=== PATIENT | female | born 1985 | race Caucasian/White ===

== ENCOUNTER 2018-09-18 09:27 | Outpatient (CLI) | payer OTHER, SELFPAY ==
--- NOTE | 2018-09-18 09:25 | DI.RAD_ITS ---
SYMPTOMS/DIAGNOSIS: KNEE PAIN MERCHANT VIEWS OF BOTH KNEES: The patellae appear normally positioned bilaterally. There is minimal spurring at the articular aspect of the patella on the right. IMPRESSION: Minimal patellofemoral degenerative changes.
== END 2018-09-18 09:47 ==
PROVIDERS: Visit Provider Orthopaedic Surgery
DX: M25.561 Pain in right knee (principal); M25.562 Pain in left knee; M22.2X1 Patellofemoral disorders, right knee
CPT/HCPCS: 73562

== ENCOUNTER 2018-09-18 15:42 | Outpatient (CLI) | payer OTHER, SELFPAY ==
--- NOTE | 2018-09-18 09:37 | DI.RAD_ITS ---
SYMPTOM/DIAGNOSIS: PAIN RIGHT KNEE: The joint spaces are well maintained. There is minimal spurring at the articular aspect of the patella. No joint effusion is seen. The bones are normally mineralized. IMPRESSION: Minimal patellofemoral degenerative changes.
== END 2018-09-18 16:02 ==
PROVIDERS: Visit Provider Physician Assistant Surgical
DX: M25.561 Pain in right knee (principal); M22.2X1 Patellofemoral disorders, right knee
CPT/HCPCS: 73565

== ENCOUNTER 2019-03-02 09:17 | Outpatient (REF) | payer OTHER, SELFPAY ==
--- NOTE | 2019-03-02 08:40 | PAPFT_PTH ---
PATIENT: Kaden Carcamo LOC: [facility] U#:[id number] AGE/SX: 34/F ROOM: RE03/02/[address]: Claudette Garcia MD : 1985 BED: DIS: 03/02/2019 SPEC #: [id number] RECD: 03/02/19 12:30 STATUS: LEXIE RECachorro #: [id number] SCOTT: 03/02/19 08:[address]: Claudette Garcia DEPT: [facility] Cytology RECD BY: Ani Crespo ENTERED: 03/02/19 12:30 SP TYPE: PAPFT OTHR DR: Arcelia Roa APRN Tissues: 1 - CX/ENDOCX FOR PAP SMEARS Procedures: PAP THIN PREP/UVM Screening HPV DNA PROBE Comments: [id number]
== END 2019-03-02 09:37 ==
LOC: LBN 09:17
PROVIDERS: Visit Provider Obstetrics & Gynecology
DX: Z12.4 Encounter for screening for malignant neoplasm of cervix (principal); Z11.51 Encounter for screening for human papillomavirus (HPV)
CPT/HCPCS: 88142; 87624

== ENCOUNTER 2019-04-04 19:48 | Emergency (ER) | payer OTHER, SELFPAY ==
[2019-04-04 19:52] VITALS: BP 124/78; PULSE 99; RESP 16; TEMP 36.7; O2SAT 98
--- NOTE | 2019-04-04 19:59 | ED.GENADUL_ITS ---
Discharge Plan Disposition Patient Disposition: HOME Condition: Good Discharge Details Chief Complaint: Orthopedic Clinical Impression: Injury of left thumb Primary Care Provider: Arcelia Roa ED Provider: Noam Chong Home Meds and New Rx's Prescriptions: Continued cholecalciferol (vitamin D3) 4,000 unit capsule 4,000 unit PO DAILY RF: 0 multivitamin [Daily Value] 1 EACH tablet 1 ea PO DAILY RF: 0 Tri-Legest Fe 1 EACH tablet 1 tab-cap PO DAILY Qty: 2 RF: 6 Discharge Instructions Additional Instructions: X-rays are negative but due to the amount of pain you are having difficult to evaluate ligamentous injury. Please wear the splint for now we will have you follow-up with orthopedics. May use Motrin or Tylenol for pain. Continue to ice. Return to ED for problems. Referrals: Yared Marques MD [ [facility] STAFF PHYSICIAN] - Medical Decision Making Patient with pain and decreased range of motion of the left thumb after fall and injury. Tenderness at the base of the thumb into the metacarpal region. IP joint appears to be fine. Unable to passively or actively bend or manipulate the thumb MCP or MCP joint. No tenderness in the snuffbox. Normal range of motion of the wrist. Neurovascularly intact. Will give Motrin and obtain x- ray. X-rays per my review and radiology read are negative. Cannot evaluate for ligamentous injury due to the amount of pain. Will place in thumb spica and referred to orthopedics for follow-up. Return to ED for problems. HPI General Mode of arrival: ambulatory . Date/Time Provider Initiated Documentation: 04/04/19 19:58 . Limitations to Documentation: no limitations . Information obtained by: patient . HPI Narrative: Patient presents to ED with complaint of left thumb pain. She had a fall last night initially injuring her thumb. Today when she was on the floor trying to push herself up she reinjured it and actually made it much worse. She has pain at the base of the thumb. She denies wrist pain. She denies hand pain otherwise. She denies any other injury or complaints. She is right-hand dominant. Related Data Home Medications Medication Instructions Recorded Confirmed multivitamin [Daily Value] 1 ea PO DAILY tab 02/17/16 04/04/19 Tri-Legest Fe 1 tab-cap PO DAILY #2 pack 02/27/18 04/04/19 cholecalciferol (vitamin D3) 4,000 4,000 unit PO DAILY 03/02/19 04/04/19 unit capsule Previous Rx's Medication Instructions Recorded Tri-Legest Fe 1 tab-cap PO DAILY #2 pack 02/27/18 Allergies Allergy/AdvReac Type Severity Reaction Status Date / Time lactose AdvReac Verified 04/04/19 19:56 ENVIRONMENTAL Allergy Mild Uncoded 04/04/19 19:56 General Stated Complaint: Orthopedic ROME: 4 Review of Systems Constitutional Denies weakness Musculoskeletal Reports limited range of motion, Denies numbness and Denies tingling Integumentary/Breasts Denies wounds Neurologic Denies numbness, Denies tingling, Denies paresthesias and Denies weakness [facility] Medical History Contraception management Surgical History section Hysteroscopy (11/07/17) lymph node removal (10/14/07) Social History Smoking/Tobacco Use Status: Never Drug use: Never Do you feel safe at home: Yes Do you feel safe in your relationship?: Yes History History Para Hx # Term Pregnancies 2 Multiple births Hx # Pregnancies Ectopic pregnancies AB induced Hx Number of Living Children AB spontaneous Exam Const General: cooperative and no acute distress Orientation: alert and oriented x3 Skin Trauma: no lacerations or abrasions Neuro Motor: strength 5/5 throughout Sensory Exam: no sensory deficits noted Extrem Left upper extremity: wrist Details: normal to inspection and normal ROM; no tenderness and no swelling and hand Details: normal capillary refill, neuromotor exam normal, neurosensory exam normal, tenderness Location: of the thumb and abnormal ROM of finger Details: pain with active ROM Location: of the thumb and pain with passive ROM Location: of the thumb Course Vital Signs Temperature 98.1 F 04/04/19 19:52 Pulse 99 H 04/04/19 19:52 Respiratory Rate 16 04/04/19 19:52 Blood Pressure 124/78 04/04/19 19:52 Pulse Oximetry 98 04/04/19 19:52 Temperature 98.1 F 04/04/19 19:52 Temperature Source Skin 04/04/19 19:52 Pulse 99 H 04/04/19 19:52 Respiratory Rate 16 04/04/19 19:52 Respiratory Effort Non-Labored 04/04/19 19:55 Blood Pressure 124/78 04/04/19 19:52 Blood Pressure Position Sitting 04/04/19 19:52 Pulse Oximetry 98 04/04/19 19:52 Oxygen Delivery Method Room Air 04/04/19 19:52 Oxygen Flow Rate 0 04/04/19 19:52 Pain Level 8 04/04/19 19:52
--- NOTE | 2019-04-04 20:15 | DI.RAD_ITS ---
SYMPTOM/DIAGNOSIS: TRAUMA LEFT HAND: No fracture or dislocation is seen. The joint spaces are well maintained. IMPRESSION: Negative left hand.
--- NOTE | 2019-04-04 21:02 | DI.VRAD_ITS ---
EXAM: XR Left Hand EXAM DATE/TIME: 04/04/2019 8:05 PM CLINICAL HISTORY: 34 years old, female; Pain; Left; Patient HX: Trauma, fell and landed on hand. HX: Previous trauma to same hand TECHNIQUE: Imaging protocol: XR Left hand. Views: 3 or more views. COMPARISON: CR LEFT HAND COMPLETE 06/22/2017 6:53 PM FINDINGS: Bones/joints: Normal. Soft tissues: Normal. IMPRESSION: No acute findings. Dictated and Authenticated by: Josie Veliz MD. Ordering:JEANNINE Santacruz MD
== END 2019-04-04 21:17 | disposition home or self-care (01) ==
PROVIDERS: Emergency Provider Emergency Medicine
DX: M79.642 Pain in left hand (principal)
CPT/HCPCS: 99283; 73130; 99282; L3807

== ENCOUNTER 2019-05-13 09:00 | Outpatient (CLI) | payer OTHER, SELFPAY ==
[2019-05-13 10:52] LABS: ALT 34 U/L (12-78); AST 13 U/L (15-37); Alkaline Phosphatase 39 U/L (46-116); Anion Gap 8.8 mmol/L (3-11); BUN 15 mg/dL (7-18); Bilirubin, Total 0.4 mg/dL (0.2-1.0); CO2 24.2 mmol/L (21.0-32.0); CREATININE 0.75 mg/dL (0.55-1.02); Calcium 9.2 mg/dL (8.5-10.1); Chloride 105 mmol/L (98-107); Glucose 93 mg/dL (70-100); Potassium 4.1 mmol/L (3.5-5.1); Sodium 138 mmol/L (136-145); Total Protein 7.4 g/dL (6.4-8.2)
== END 2019-05-13 09:20 ==
DX: R63.8 Other symptoms and signs concerning food and fluid intake (principal); F41.9 Anxiety disorder, unspecified; F32.9 Major depressive disorder, single episode, unspecified
CPT/HCPCS: 36415; 80053

== ENCOUNTER 2019-07-14 18:33 | Outpatient (REF) | payer OTHER, SELFPAY | END 2019-07-14 18:53 | LOC: LBN 18:33 | PROVIDERS: Visit Provider Nurse Practitioner Family | DX: R30.0 Dysuria (principal) | CPT/HCPCS: 87077; 87086; 87186 ==

== ENCOUNTER 2019-08-12 12:17 | Emergency (ER) | payer OTHER, SELFPAY ==
[2019-08-12 12:24] VITALS: BP 142/75; PULSE 103; RESP 18; O2SAT 97
--- NOTE | 2019-08-12 12:55 | W.ED.GENAD ---
Discharge Plan Disposition Patient Disposition: HOME Condition: Fair Discharge Details Chief Complaint: Orthopedic Clinical Impression: Acute knee pain Primary Care Provider: Arcelia Roa ED Provider: Marguerite Bowman Home Meds and New Rx's Prescriptions: No Action No Known Home Meds RF: 0 Discharge Instructions Instructions: Knee Pain (ED) Additional Instructions: Rest. Activities as tolerated. Elevate injury to prevent swelling. Ice to the area of discomfort for 15 min. 3-5 times daily. Motrin every 8 hours with food or Tylenol every 6 hours for soreness if needed over the counter for comfort. Followup with orthopedic doctor as discussed if not improving in one week. Return for any worsening or concerns sooner if needed. 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 Patient forced extension of her knee which cause significant pain. Patient does report her knee has locked in the past historically. Patient does report some chronic knee pain with any attempting exercise. Patient reports she is able to range her knee at this time. Patient has seen orthopedics for knee pain in the past and has had x-rays which are unremarkable for acute changes or fractures. Patient was offered physical therapy by orthopedics in the past which she declined due to her schedule. Patient denies any ill feeling. Patient declines x-ray today. Would prefer outpatient follow-up and [facility]. Offered knee bracing and crutches which I encouraged her to use for the next 3 to 5 days. Referral provided for orthopedics for reevaluation which I think is warranted given her complaints and concern for possible meniscus injury or loose bodies. Patient reports her understanding. The patient was stable and requested discharge. Prior to discharge, my usual and customary return precautions were reviewed with the patient - this included follow-up instructions and reasons to return to the Emergency Department if conditions worsens, does not improve as expected, or other new concerns arise. HPI General Date/Time Provider Initiated Documentation: 08/12/19 12:18. HPI Narrative: 34-year-old patient presents for complaints of right knee pain. 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 Knowing the feeling of her knee about to lock she forced extension of her knee which was quite painful. Patient is able to flex and extend at this time with pain. Patient denies significant radiating pain into the leg at this time. She did reported a single episode of radiating pain into the leg when extending her knee. Patient denies numbness, tingling or weakness distally. Patient reports she has had her knee fully lock in the past. Patient has followed with orthopedics and has had an x-ray of her knee in the past with no significant abnormality. Patient denies any other concerns or complaints at this time. Patient does report some difficulty with knee pain when attempting to work out at the gym which she is noted repetitively. Related Data Home Medications Medication Instructions Recorded Confirmed Unknown [No Known Home Meds] 08/12/19 08/12/19 Allergies Allergy/AdvReac Type Severity Reaction Status Date / Time lactose AdvReac Verified 08/12/19 12:27 ENVIRONMENTAL Allergy Mild Uncoded 08/12/19 12:27 General Stated Complaint: Orthopedic ROME: 4 Review of Systems All systems reviewed & are unremarkable except as noted in HPI and below Constitutional Constitutional: Denies chills and Denies fever(s) Musculoskeletal Musculoskeletal: Denies joint swelling, Reports limited range of motion, Reports stiffness and Denies tingling Neurologic Neurologic: Denies tingling [facility] Medical History Contraception management Mirena IUD after of her children. 2017 Mirena IUD removed after 3yrs - needed hysteroscopy in OR to retrieve device. 02/2018 OCPs. Dermatitis (Acute) Surgical History section X 2 Hysteroscopy (11/07/17) retrieval of Mirena IUD. lymph node removal (10/14/07) from neck Family History Mother Lupus Rheumatoid arthritis Diabetes Essential hypertension Depression Heart disease Hyperlipidemia Father Essential hypertension Heart disease Hyperlipidemia Sister No problems noted. Maternal Grandfather No problems noted. Paternal Grandfather Alzheimer disease Smoker Maternal Grandmother Stroke Paternal Grandmother Essential hypertension Heart disease Hyperlipidemia Daughter No problems noted. Daughter No problems noted. Social History Smoking/Tobacco Use Status: Never Alcohol Intake: current Alcohol Intake frequency: 0-2 drinks per day Alcohol type: beer, wine and hard liquor Drug use: Never Substance use type: does not use Caregiver/Support person: No Household members: children Housing: apartment Communication Needs: None Do you need help understanding health information?: Rarely Pets and animals: No Sexually active: Yes Do you think of yourself as: straight/heterosexual Current gender identity: female What is your relationship status?: How often do you talk on the phone with friends or family?: decline to answer How often do you get together with friends or relatives?: decline to answer How often do you attend sikhism or latter-day services?: decline to answer Do you belong to any clubs or organized social groups?: decline to answer Panel score (0-1 are the most socially isolated patients): 0 What type of physical activity do you participate in: decline to answer Duration: decline to answer Frequency: decline to answer Lesley/Scientology: None Special lesley needs: No Seatbelt use: always Do you feel safe at home: Yes Do you feel safe in your relationship?: Yes History History Para Hx # Term Pregnancies 2 Multiple births Hx # Pregnancies Ectopic pregnancies AB induced Hx Number of Living Children AB spontaneous Exam Narrative Exam Narrative: CONST: Healthy appearing patient, in no acute distress. Well hydrated. Alert and alert. MUSCULOSKELETAL: Normal Gait. Right knee pain with flexion extension. Patient is able to flex and extend right knee. Significant pain with full extension. Straight leg raise intact. No obvious joint effusion. Patella is midline. No obvious prepatellar effusion or bursitis. Early crepitus noted with range of motion of the patella consistent with possible osteophytes. Mild lateral meniscus pain with varus stress. No obvious laxity. No erythema or overlying skin changes. No lower leg swelling noted. No ankle pain or foot pain with palpation. Pulses intact and sensation intact distally SKIN: Normal. Dry. No rashes. NEURO: Alert and awake. Speech clear. PSYCH: Normal affect. Cooperative. Course Vital Signs Vital signs: Vital Signs Pulse 103 H 08/12/19 12:24 Respiratory Rate 18 08/12/19 12:24 Blood Pressure 142/75 H 08/12/19 12:24 Pulse Oximetry 97 08/12/19 12:24 Pulse 103 H 08/12/19 12:24 Respiratory Rate 18 08/12/19 12:24 Respiratory Effort 08/12/19 12:28 Blood Pressure 142/75 H 08/12/19 12:24 Blood Pressure Position Standing 08/12/19 12:24 Pulse Oximetry 97 08/12/19 12:24 Oxygen Delivery Method Room Air 08/12/19 12:24 Oxygen Flow Rate 0 08/12/19 12:24 Pain Level 4 08/12/19 12:30
== END 2019-08-12 13:11 | disposition home or self-care (01) ==
LOC: ER 13:36
PROVIDERS: Emergency Provider Physician Assistant
DX: M25.561 Pain in right knee (principal); X50.1XXA Overexertion from prolonged static or awkward postures, initial encounter
CPT/HCPCS: 99282; E0114; L1810

== ENCOUNTER 2019-08-12 14:27 | Outpatient (CLI) | payer OTHER, SELFPAY ==
--- NOTE | 2019-08-12 14:08 | DI.RAD_ITS ---
EXAM: XR KNEE RT 1V INDICATION: knee pain. COMPARISON: XR KNEES MERCHANT ONLY from 09/18/2018 TECHNIQUE: 2D digital imaging was performed. FINDINGS: A single Merchant view of the right knee was obtained. There does appear to be normal alignment of t he patellofemoral joint. No displaced fracture is identified on this limited examination.
== END 2019-08-12 14:47 ==
PROVIDERS: Visit Provider Physician Assistant
DX: M25.561 Pain in right knee (principal)
CPT/HCPCS: 73560

== ENCOUNTER 2019-08-12 15:05 | Outpatient (CLI) | payer OTHER, SELFPAY ==
--- NOTE | 2019-08-12 16:50 | DI.MRI_ITS ---
EXAM: MR LOWER JOINT RT WO CLINICAL HISTORY: RT KNEE PAIN, INJURY, ANTERIOR AND LATERAL PAIN, SWELLING. TECHNIQUE: Multiplanar multisequence MRI was performed. COMPARISON: XR KNEES MERCHANT ONLY from 09/18/2018 XR knee RT 3V AP,lat,alex from 09/18/2018 XR KNEE RT 1V from 08/12/2019 FINDINGS: There is a small joint effusion. The cruciate and collateral ligaments and extensor mechanism appear intact. No cartilage defects are visible. No meniscal tears are seen. IMPRESSION: A small joint effusion. No ligament or meniscal tear is identified.
== END 2019-08-12 15:25 ==
PROVIDERS: Visit Provider Student in an Organized Health Care Education/Training Program
DX: M25.561 Pain in right knee (principal); M25.461 Effusion, right knee
CPT/HCPCS: 73721

== ENCOUNTER 2020-06-06 02:37 | Outpatient (CLI) | payer OTHER, SELFPAY ==
[2020-06-06 15:17] LABS: Abs Immature Grans 0.02 10^3/uL (0.0-0.06); Absolute Basophil Count 0.03 10^3/uL (0.0-0.2); Absolute Eosinophil Count 0.16 10^3/uL (0.0-0.7); Absolute Lymphocyte Count 2.33 10^3/uL (1.2-3.4); Absolute Monocyte Count 0.69 10^3/uL (0.1-0.8); Absolute Neutrophil Count 4.39 10^3/uL (1.2-6.7); Basophils % 0.4; Eosinophils % 2.1; HCT 40.5 % (36.0-46.0); HGB 13.3 g/dL (11.2-15.7); Immature Grans % 0.3; Lymphocytes % 30.6; MCH 28.5 pg (27.0-33.0); MCHC 32.8 % (32.0-36.0); MCV 86.7 fL (80-95); MPV 9.7 fL (8.0-11.0); Monocytes % 9.1; Neutrophils % 57.5; Nucleated RBC 0 %; Platelet Count 288 10^3/uL (130-400); RBC 4.67 10^6/uL (3.93-5.22); WBC 7.62 10^3/uL (4.4-10.8)
[2020-06-06 16:14] LABS: ALT 24 U/L (14-59); AST 14 U/L (15-37); Alkaline Phosphatase 40 U/L (46-116); Anion Gap 8.3 mmol/L (3-11); BUN 12 mg/dL (7-18); Bilirubin, Total 0.4 mg/dL (0.2-1.0); CO2 26.7 mmol/L (21.0-32.0); CREATININE 0.93 mg/dL (0.55-1.02); Calcium 8.8 mg/dL (8.5-10.1); Chloride 104 mmol/L (98-107); Glucose 83 mg/dL (74-106); Potassium 3.7 mmol/L (3.5-5.1); Sodium 139 mmol/L (136-145); TSH 1.06 uIU/mL (0.36-3.74); Total Protein 7.2 g/dL (6.4-8.2)
[2020-06-07 09:28] LABS: IgA 158 mg/dL (85-499)
[2020-06-08 16:28] LABS: Tissue Transglutaminase Ab IgA <1.2 U/mL
== END 2020-06-06 02:57 ==
PROVIDERS: Visit Provider Internal Medicine Gastroenterology
DX: K59.09 Other constipation (principal)
CPT/HCPCS: 36415; 80053; 82784; 83516; 84443; 85025

== ENCOUNTER 2020-07-01 13:01 | Outpatient (REF) | payer OTHER, SELFPAY ==
--- NOTE | 2020-07-01 12:10 | PAPFT_PTH ---
PATIENT: Kaden Carcamo LOC: [facility] U#:[id number] AGE/SX: 35/F ROOM: RE07/01/[address]: Pedro Huerta RN : 1985 BED: DIS: 07/01/2020 SPEC #: [id number] RECD: 07/01/20 17:48 STATUS: LEXIE RECachorro #: [id number] SCOTT: 07/01/20 12:[address]: Pedro Huerta [facility] Cytology RECD BY: Ariane Santo ENTERED: 07/01/20 17:49 SP TYPE: PAPFT OTHR DR: Arcelia Roa APRN Tissues: 1 - CX/ENDOCX FOR PAP SMEARS Procedures: PAP THIN PREP/UVM Screening HPV DNA PROBE Comments: [id number]
[2020-07-04 15:12] LABS: Chlamydia Result Negative (Negative); GC Result Negative (Negative)
== END 2020-07-01 13:21 ==
LOC: LBN 13:01
PROVIDERS: Visit Provider Advanced Practice Midwife
DX: Z12.4 Encounter for screening for malignant neoplasm of cervix (principal); Z11.51 Encounter for screening for human papillomavirus (HPV); Z87.42 Personal history of other diseases of the female genital tract
CPT/HCPCS: 87491; 87591; 88142; 87624

== ENCOUNTER 2020-08-03 22:40 | Outpatient (REF) | payer OTHER, SELFPAY | END 2020-08-03 23:00 | LOC: LBN 22:40 | PROVIDERS: Visit Provider Nurse Practitioner Family | DX: J02.9 Acute pharyngitis, unspecified (principal) | CPT/HCPCS: 87070 ==

== ENCOUNTER 2020-11-14 13:14 | Outpatient (REF) | payer OTHER, SELFPAY ==
[2020-11-15 01:14] LABS: COVID-19 RT-PCR UVMMC Result Negative (Negative)
== END 2020-11-14 13:34 ==
LOC: LBO 13:14
PROVIDERS: Visit Provider Nurse Practitioner Family
DX: Z11.52 Encounter for screening for COVID-19 (principal)
CPT/HCPCS: U0003

== ENCOUNTER 2021-06-30 11:16 | Outpatient (REF) | payer OTHER, SELFPAY ==
[2021-07-01 01:12] LABS: COVID-19 RT-PCR UVMMC Result Negative (Negative)
== END 2021-06-30 11:17 | disposition home or self-care (01) ==
LOC: LBO 11:16
PROVIDERS: Visit Provider Nurse Practitioner Family
DX: Z20.822 Contact with and (suspected) exposure to COVID-19 (principal)
CPT/HCPCS: U0003

== ENCOUNTER 2021-07-07 09:36 | Emergency (ER) | payer OTHER, SELFPAY ==
--- NOTE | 2021-07-07 09:45 | DI.US_ITS ---
Exam(s) US LOWER EXTREMITY VENOUS LT EXAM: US LOWER EXTREMITY VENOUS LT CLINICAL HISTORY: swelling, pain TECHNIQUE: Left lower extremity venous ultrasound performed using grayscale, color-flow, and spectra l Doppler analysis. COMPARISON: No exams were available for comparison FINDINGS: The left common femoral, femoral and popliteal veins demonstrate normal compressibility, augmentation , and color Doppler. The posterior tibial veins are patent. The saphenofemoral junction is unremarka ble. There is no evidence of a Posada cyst. The soft tissues are unremarkable. IMPRESSION: No DVT. DATA REPOSITORY:
[2021-07-07 09:50] VITALS: BP 136/93; PULSE 117; RESP 22; TEMP 36.8; O2SAT 99
--- NOTE | 2021-07-07 10:00 | RT.EKG_ITS ---
APPROVED REPORT Exam: Resting ECG Reason for Exam: sob Patient Location: E HR:111 bpm ECG Measurements Heart Rate 111 AXIS TN 178 P 52 QRSd 96 QRS 8 QT 329 T 40 QTc 448 Conclusion Sinus tachycardia...rate> 99
--- NOTE | 2021-07-07 10:22 | W.ED.GENAD ---
Discharge Plan Disposition Patient Disposition: HOME Condition: Stable Discharge Details Clinical Impression: Leg pain, left Primary Care Provider: Arcelia Roa ED Provider: Petey Leong Home Meds and New Rx's Prescriptions: Continued multivitamin Tablet 1 tab PO DAILY RF: 0 Discharge Instructions Instructions: Leg Pain (ED) Additional Instructions: Please take ibuprofen over the counter. Take 600mg by mouth every 6 hours as needed for pain. Please take acetaminophen (tylenol) - 650mg every 6 hours by mouth as needed for pain. Please contact your primary care physician to arrange follow-up. Return to the ER for any worsening or new concerning symptoms. Referrals: Arcelia Roa, LILIAN [Primary Care Provider] - Discharge Data Discharge Date/Time-TO BE ENTERED AT DEPARTURE: 07/07/21 13:25 Medical Decision Making 11:00 test?36-year-old female has had respiratory symptoms for the past 1 week, Covid positive on Saturday, here with left lower extremity pain and swelling. Calf tender to palpation. Consider DVT. Plan to obtain ultrasound. Patient is tachycardic. She notes her heart rate is always elevated and she does feel little anxious. She is saturating well in no respiratory distress. 13:07 --ultrasound interpreted by radiology as negative for DVT. Results were discussed with the patient. She was advised to follow-up with primary care physician. She was encouraged to return immediately for any worsening or new concerning symptoms. HPI General Mode of arrival: ambulatory. Date/Time Provider Initiated Documentation: 07/07/21 09:57. Limitations to Documentation: no limitations. Information obtained by: patient. HPI Narrative: 36-year-old female tested positive for Covid 6 days ago, has had symptoms for the past 7 days, now with left lower extremity pain that is moderate, localized to calf and mid medial thigh, started yesterday and has persisted, noticed associated swelling of the lower leg today. No history of DVT. She has no chest pain. Related Data Home Medications Medication Instructions Recorded Confirmed multivitamin 1 tab PO DAILY 07/01/20 07/11/20 Allergies Allergy/AdvReac Type Severity Reaction Status Date / Time lactose AdvReac Verified 07/07/21 09:53 ENVIRONMENTAL Allergy Mild Uncoded 07/07/21 09:53 General Stated Complaint: Vascular ROME: 3 Review of Systems All systems reviewed & are unremarkable except as noted in HPI and below Constitutional Constitutional: Reports body ache(s) and Reports fever(s) Respiratory Respiratory: Reports cough [facility] Medical History Contraception management Mirena IUD after of her children. 2018 Mirena IUD removed after 3yrs - needed hysteroscopy in OR to retrieve device. 02/2018 OCPs. Dermatitis Internal derangement of right knee (08/12/19) Plantar fasciitis of right foot Rectal pain, chronic Urinary pain Surgical History section X 2 Hysteroscopy (11/07/17) retrieval of Mirena IUD. lymph node removal (10/14/07) from neck Family History Mother Lupus Rheumatoid arthritis Diabetes Essential hypertension Depression Heart disease Hyperlipidemia Father Essential hypertension Heart disease Hyperlipidemia Sister No problems noted. Maternal Grandfather No problems noted. Paternal Grandfather Alzheimer disease Smoker Maternal Grandmother Stroke Paternal Grandmother Essential hypertension Heart disease Hyperlipidemia Daughter No problems noted. Daughter No problems noted. Social History Smoking/Tobacco Use Status: Never Smoking risk assessment performed?: Yes Alcohol Intake: current Alcohol Intake frequency: 0-2 drinks per day Alcohol type: beer, wine and hard liquor Drug use: Never Substance use type: does not use Caregiver/Support person: No Household members: children Housing: apartment Communication Needs: None Do you need help understanding health information?: Rarely Pets and animals: No Sexually active: Yes Do you think of yourself as: straight/heterosexual Current gender identity: female What is your relationship status?: How often do you talk on the phone with friends or family?: decline to answer How often do you get together with friends or relatives?: decline to answer How often do you attend sikhism or caodaism services?: decline to answer Do you belong to any clubs or organized social groups?: decline to answer Panel score (0-1 are the most socially isolated patients): 0 What type of physical activity do you participate in: decline to answer Duration: decline to answer Frequency: decline to answer Lesley/Religious: None Special lesley needs: No Seatbelt use: always Do you feel safe at home: Yes Do you feel safe in your relationship?: Yes History History Para Hx # Term Pregnancies 2 Multiple births Hx # Pregnancies Ectopic pregnancies AB induced Hx Number of Living Children AB spontaneous Exam Const General: cooperative and no acute distress HENMT Mouth: moist mucous membranes Eyes Conjunctivae: normal conjunctivae Sclera: normal sclerae Neck Neck: trachea midline and supple Resp Auscultation: clear to auscultation bilaterally, no rales, no rhonchi and no wheezes Cardio Rate: tachycardic Rhythm: regular rhythm Heart Sounds: no murmurs GI Palpation: soft, not firm, no guarding, no masses, not rigid and nontender Skin General skin exam: no rashes or lesions noted Neuro General: patient alert, patient awake, patient oriented x3 and tone normal Extrem General: edema Laterality: left Left lower extremity: hip/thigh Details: tenderness Location: of the mid upper leg; no swelling and lower leg Details: tenderness Location: of the posterior calf Psych Appearance: grossly normal Mental Status: mental status grossly normal Speech and Movement: speech and movement normal Course Vital Signs Vital signs: Vital Signs Temperature 36.8 C 07/07/21 09:50 Pulse 117 H 07/07/21 09:50 Respiratory Rate 22 07/07/21 09:50 Blood Pressure 136/93 H 07/07/21 09:50 Pulse Oximetry 99 07/07/21 09:50 Temperature 36.8 C 07/07/21 09:50 Pulse 117 H 07/07/21 09:50 Respiratory Rate 22 07/07/21 09:50 Respiratory Effort 07/07/21 10:07 Blood Pressure 136/93 H 07/07/21 09:50 Blood Pressure Position Sitting 07/07/21 09:50 Pulse Oximetry 99 07/07/21 09:50 Oxygen Delivery Method Room Air 07/07/21 09:50 Oxygen Flow Rate 0 07/07/21 09:50 Pain Level 4 07/07/21 09:50
[2021-07-07 13:04] VITALS: BP 125/76; RESP 16; TEMP 36.7; O2SAT 96
== END 2021-07-07 13:25 | disposition home or self-care (01) ==
PROVIDERS: Emergency Provider Student in an Organized Health Care Education/Training Program
DX: M79.662 Pain in left lower leg (principal); U07.1 COVID-19; M79.89 Other specified soft tissue disorders; R06.02 Shortness of breath
CPT/HCPCS: 93005; 99284; 93010; 93971; 99283

== ENCOUNTER 2021-08-10 14:21 | Emergency (ER) | payer OTHER, SELFPAY ==
[2021-08-10 14:24] VITALS: BP 147/88; PULSE 114; RESP 18; TEMP 36.8; O2SAT 98
--- NOTE | 2021-08-10 14:36 | ED.GENADUL_ITS ---
Discharge Plan Disposition Patient Disposition: HOME Condition: Stable Discharge Details Clinical Impression: Deep vein thrombosis (DVT) of right upper extremity Primary Care Provider: Arcelia Roa ED Provider: Landy Pereyra Home Meds and New Rx's Prescriptions: New Eliquis DVT-PE Treat 30D Start 5 mg (74 tabs) tablets,dose pack See Rx Instructions .ROUTE .COMPLEX 30 Days Qty: 74 RF: 0 No Action multivitamin Tablet 1 tab PO DAILY RF: 0 Discharge Instructions Instructions: Apixaban (By mouth), Deep Vein Thrombosis (ED) Additional Instructions: Take Eliquis as directed twice daily for 7 days 25 mg twice daily. Please return to the ER for any worsening shortness of breath, chest pain, swelling or redness in the leg. Follow up with primary care provider in 3-5 days. Return to ED sooner if any worsening or concerns. Increase oral fluids. Stand Alone Forms: Work Release Referrals: Arcelia Roa [facility] HELPER [Primary Care Provider] - Medical Decision Making <MARYLIN Alanis - Last Filed: 08/10/21 16:14> 36-year-old female, Covid +6 weeks ago, presents for concern of DVT in her right upper extremity. Reports chest pain or shortness of breath ongoing since her initial diagnosis 2 weeks ago. Tachycardia of 114 upon arrival. Given her presentation, will obtain ultrasound of her right upper extremity will also obtain a cardiac work-up including chest CTA given concern for potential PE as well. Patient states decreased p.o. intake over the past few days, will also give 1 L IV fluid. Medical Records Medical records reviewed: Yes I reviewed the patient's medical records. Lab Data Lab results reviewed: Yes I reviewed the patient's lab results. Labs: Laboratory Tests Range/Units 08/10/21 08/10/21 08/10/21 15:00 15:00 15:00 WBC (4.4-10.8) 10^3/uL 5.57 RBC (3.93-5.22) 10^6/uL 4.54 Hgb (11.2-15.7) g/dL 14.3 Hct (36.0-46.0) % 40.7 MCV (80-95) fL 89.6 MCH (27.0-33.0) pg 31.5 MCHC (32.0-36.0) % 35.1 RDW (11.7-14.6) % 11.7 Plt Count (130-400) 10^3/uL 279 MPV (8.0-11.0) fL 9.7 Immature Gran % 0.2 Neutrophils % 57.6 Lymphocytes % 32.7 Monocytes % 6.8 Eosinophils % 2.3 Basophils % 0.4 Nucleated RBC % % 0 Absolute Neutrophils (1.2-6.7) 10^3/uL 3.21 Absolute Lymphocytes (1.2-3.4) 10^3/uL 1.82 Absolute Monocytes (0.1-0.8) 10^3/uL 0.38 Absolute Eosinophils (0.0-0.7) 10^3/uL 0.13 Absolute Basophils (0.0-0.2) 10^3/uL 0.02 PT (9.3-11.0) sec 10.2 INR (0.9-1.1) 1.0 APTT (21.0-27.5) sec 24.7 Sodium (136-145) mmol/L 142 Potassium (3.5-5.1) mmol/L 3.7 Chloride (98-107) mmol/L 105 Carbon Dioxide (21.0-32.0) mmol/L 29.6 Anion Gap (3-11) mmol/L 7.4 BUN (7-18) mg/dL 14 Creatinine (0.55-1.02) mg/dL 0.9 Estimated GFR/1.73 m2 (mL/min/1.73m2) >= 60.00 Glucose (74-106) mg/dL 100 Calcium (8.5-10.1) mg/dL 9.0 Magnesium (1.8-2.4) mg/dL 2.1 Total Bilirubin (0.2-1.0) mg/dL 0.3 AST (15-37) U/L 11 L ALT (14-59) U/L 24 Alkaline Phosphatase (46-116) U/L 40 L Troponin I (<0.06) ng/mL < 0.05 Total Protein (6.4-8.2) g/dL 7.7 Albumin (3.4-5.0) g/dL 4.0 ECG Data Attestation: I personally reviewed and interpreted this ECG (s) as follows: Interpretation: Please see official report by Dr. Gómez. Sinus tachycardia, ventricular of 101. PVC present. No STEMI <Landy Pereyra - Last Filed: 08/10/21 23:13> 1649: Care assumed from provider (MARYLIN Dietrich) Please see their initial HPI, PE, and documentation. Discussed patient details and case and pending workup and disposition. Patient is hemodynamically stable, and alert and oriented. At this time awaiting for CT and ultrasound venous Doppler of right upper extremity result. I did speak with radiologist Dr. Jefferson who reports that CT is negative for PE he did send it to be read for second opinion. He is concerned regarding filling defect on the left internal jugular and is questi oning possible ultrasound for left upper extremity and bilateral lower extremities. He will call me back. Ultrasound of right upper extremity shows a intraluminal thrombus approximately 5 cm in the mid cephalic vein in the right upper arm. CT shows no evidence of acute PE. No pulmonary infiltrates no pleural effusions. Question intraluminal filling defect in the left internal jugular vein. Recommend Doppler ultrasound of both lower extremities and left upper extremity. I did discuss recommendations for repeat ultrasound to all extremities with patient she declined at this time. I did discuss options for anticoagulant treatment at this time she agrees to Eliquis. First dose given here 10 mg. Instructed to follow-up with PCP and we discussed return instructions to return if any increase shortness of breath, chest pain, swelling in her legs or any other concerns, verbalized understanding. HPI <MARYLIN Alanis - Last Filed: 08/10/21 16:14> General Mode of arrival: ambulatory . Date/Time Provider Initiated Documentation: 08/10/21 14:34 . Limitations to Documentation: no limitations . Information obtained by: patient . HPI Narrative: This is a 36-year-old female, denies significant chronic past medical history, [id number], was diagnosed with Covid 6 weeks ago, now presenting for concern of DVT in her right upper extremity, atraumatic pain and swelling over the past 24 hours. Does report that her hands feel slightly tingly. Patient reports chronic chest pain and shortness of breath which has been present, worse with coughing, since her initial diagnosis with Covid. She denies history of DVT or PE. Patient denies recent trauma. Denies headache, neck pain, productive cough, abdominal pain, nausea, vomit, pain or swelling her legs, skin rash, fever. Patient reports the pain in her right arm is a dull ache. Denies any left arm pain. Patient had been fully vaccinated against Covid. Related Data Home Medications Medication Instructions Recorded Confirmed multivitamin 1 tab PO DAILY 07/01/20 08/10/21 apixaban [Eliquis DVT-PE Treat 30D See Rx Instructions .ROUTE 08/10/21 Start] .COMPLEX 30 Days #74 dose pk Previous Rx's Medication Instructions Recorded apixaban [Eliquis DVT-PE Treat 30D See Rx Instructions .ROUTE 08/10/21 Start] .COMPLEX 30 Days #74 dose pk Allergies Allergy/AdvReac Type Severity Reaction Status Date / Time lactose AdvReac Verified 08/10/21 14:30 ENVIRONMENTAL Allergy Mild Uncoded 08/10/21 14:30 General Stated Complaint: Vascular ROME: 3 Review of Systems <MARYLIN Alanis - Last Filed: 08/10/21 16:14> Constitutional Constitutional: Denies fever(s) and Denies headache(s) ENT Ears, Nose, Mouth, and Throat: Denies headache(s) and Denies neck pain Cardiovascular Cardiovascular: Reports chest pain and Reports dyspnea Respiratory Respiratory: Reports cough and Reports dyspnea Gastrointestinal Gastrointestinal: Denies abdominal pain, Denies nausea and Denies vomiting Musculoskeletal Musculoskeletal: Denies back pain, Denies neck pain, Denies numbness and Denies tingling Integumentary/Breasts Skin/Breast: Denies rash Neurologic Neurologic: Denies headache(s), Denies numbness and Denies tingling Hematologic/Lymphatic Hematologic/Lymphatic: Denies easy bleeding and Denies easy bruising PFSH <MARYLIN Alanis - Last Filed: 08/10/21 16:14> Medical History Contraception management Mirena IUD after of her children. 2018 Mirena IUD removed after 3yrs - needed hysteroscopy in OR to retrieve device. 02/2018 OCPs. Dermatitis Internal derangement of right knee (08/12/19) Plantar fasciitis of right foot Rectal pain, chronic Urinary pain Surgical History section X 2 Hysteroscopy (11/07/17) retrieval of Mirena IUD. lymph node removal (10/14/07) from neck Family History Mother Lupus Rheumatoid arthritis Diabetes Essential hypertension Depression Heart disease Hyperlipidemia Father Essential hypertension Heart disease Hyperlipidemia Sister No problems noted. Maternal Grandfather No problems noted. Paternal Grandfather Alzheimer disease Smoker Maternal Grandmother Stroke Paternal Grandmother Essential hypertension Heart disease Hyperlipidemia Daughter No problems noted. Daughter No problems noted. Social History Smoking/Tobacco Use Status: Never Smoking risk assessment performed?: Yes Alcohol Intake: current Alcohol Intake frequency: holidays/special occasions only Alcohol type: beer, wine and hard liquor Drug use: Never Substance use type: does not use Caregiver/Support person: No Household members: children Housing: apartment Communication Needs: None Do you need help understanding health information?: Rarely Pets and animals: No Sexually active: Yes Do you think of yourself as: straight/heterosexual Current gender identity: female What is your relationship status?: How often do you talk on the phone with friends or family?: decline to answer How often do you get together with friends or relatives?: decline to answer How often do you attend voodoo or religion services?: decline to answer Do you belong to any clubs or organized social groups?: decline to answer Panel score (0-1 are the most socially isolated patients): 0 What type of physical activity do you participate in: decline to answer Duration: decline to answer Frequency: decline to answer Lesley/Confucianist: None Special lesley needs: No Seatbelt use: always Do you feel safe at home: Yes Do you feel safe in your relationship?: Yes History History Para Hx # Term Pregnancies 2 Multiple births Hx # Pregnancies Ectopic pregnancies AB induced Hx Number of Living Children AB spontaneous Exam <MARYLIN Alanis - Last Filed: 08/10/21 16:14> Const General: cooperative, healthy appearing, comfortable and no acute distress Orientation: alert, awake and oriented x3 HENMT Head: normal to inspection, normocephalic and atraumatic Eyes General: appearance normal, both eyes and all related structures Conjunctivae: conjunctivae normal Neck Neck: normal visual inspection, full ROM, trachea midline and supple Resp Effort & Inspection: normal respiratory effort and able to speak in complete sentences Auscultation: clear to auscultation bilaterally Cardio Rate: tachycardic (102) Rhythm: regular rhythm Back/Spine/Pelvis Back: No back tenderness Skin General skin exam: no rashes or lesions noted Neuro General: patient alert, patient awake, moves all extremities and no focal motor deficits Cognition: normal cognition Speech: speech normal Gait: normal gait Motor: muscle tone normal throughout Sensory Exam: no sensory deficits noted Extrem General: normal to inspection, full ROM, capillary refill normal, no pedal edema and no calf tenderness Psych Appearance: grossly normal Mental Status: mental status grossly normal Course <MARYLIN Alanis - Last Filed: 08/10/21 16:14> Vital Signs Vital signs: Vital Signs Temperature 36.8 C 08/10/21 14:24 Pulse 114 H 08/10/21 14:24 Respiratory Rate 18 08/10/21 14:24 Blood Pressure 147/88 H 08/10/21 14:24 Pulse Oximetry 98 08/10/21 14:24 Temperature 36.8 C 08/10/21 14:24 Temperature Source Skin 08/10/21 14:24 Pulse 114 H 08/10/21 14:24 Respiratory Rate 18 08/10/21 14:24 Respiratory Effort Non-Labored 08/10/21 14:31 Blood Pressure 147/88 H 08/10/21 14:24 Blood Pressure Position Sitting 08/10/21 14:24 Pulse Oximetry 98 08/10/21 14:24 Oxygen Delivery Method Room Air 08/10/21 14:24 Oxygen Flow Rate 0 08/10/21 14:24 Pain Level 4 08/10/21 14:24 Sign Out <MARYLIN Alanis - Last Filed: 08/10/21 16:14> Sign Out Data: Sign Out Comment: Covid +6 weeks ago. Concern of right upper extremity DVT. Chest pain-shortness of breath for the past 6 weeks. Tachycardia upon arrival today of 114. Obtaining cardiac work-up, chest CTA to rule out PE, and a right upper extremity ultrasound. Last updated by Hector Tse PA at 08/10/21 15:41
[2021-08-10 14:45] VITALS: RESP 17
--- NOTE | 2021-08-10 14:45 | RT.EKG_ITS ---
APPROVED REPORT Exam: Resting ECG Reason for Exam: tachy Patient Location: E HR:101 bpm ECG Measurements Heart Rate 101 AXIS CA 182 P 53 QRSd 101 QRS 8 QT 353 T 36 QTc 457 Conclusion Sinus tachycardia...rate> 99 Ventricular premature complex...V complex w/ short R-R interval
--- NOTE | 2021-08-10 14:45 | DI.US_ITS ---
Exam(s) US UPPER EXTREMITY VENOUS RT EXAM: US UPPER EXTREMITY VENOUS RT CLINICAL HISTORY: pain, concern for dvt TECHNIQUE: GRAYSCALE, COLOR, DOPPLER IMAGING OF THE VENOUS SYSTEM OF THE UPPER EXTREMITY-BILATERAL COMPARISON: US US LOWER EXTREMITY VENOUS LT from 07/07/2021 FINDINGS: Basilic vein: Patent. Normal color-flow and normal compression and augmentation properties. Brachial vein(s):Patent. Normal color flow. Normal compression and augmentation properties. Cephalic vein:Abnormal. There is intraluminal thrombus for distance of approximately 5 cm in the mid cephalic vein in the upper arm level. Axillary vein: Patent. Normal color flow. Normal compression and augmentation properties. Visualized subclavian vein: Patent. No obvious intraluminal thrombus. IMPRESSION: 1. Positive study for venous thrombosis in the right cephalic vein DATA REPOSITORY:
--- NOTE | 2021-08-10 14:45 | DI.CT_ITS ---
Exam(s) CT CHEST PE CTA EXAM: CT CHEST PE CTA CLINICAL HISTORY: covid 6 weeks ago, sob, tachy. TECHNIQUE: Imaging Protocol: CT angiography of the chest was performed using pulmonary embolus nery col. Multi planar reconstructions were performed. CONTRAST MATERIAL: Intravenous: Omnipaque 350 Contrast volume: 100 cc COMPARISON: No exams were available for comparison FINDINGS: CHEST: PULMONARY ARTERIES: There are no intraluminal filling defects to suggest acute pulmonary emboli. LUNGS: There are no infiltrates nor evidence of pulmonary infarction.. There are no pleural effusions . MEDIASTINUM: There is no hilar nor mediastinal adenopathy. Visualized thyroid unremarkable. CARDIAC: Heart size is upper normal. There is no pericardial effusion.Caliber of the thoracic aorta is within normal limits. There is no significant shift of the interventricular septum. PARTIALLY VISUALIZED UPPERMOST ABDOMEN: No obvious findings OSSEOUS: No significant osseous lesions.. Behind the left sternoclavicular joint there is a suggestion of an intraluminal filling defect at lev el of the subclavian vein junction with the innominate vein and left internal jugular vein. Possible intraluminal thrombus versus artifact at this level. IMPRESSION: 1. No evidence of acute pulmonary emboli. No evidence of pulmonary infarction. No pulmonary infiltr ates. No pleural effusions. 2. Subtle intraluminal filling defect within the junction of the left internal jugular vein and innom inate vein/subclavian vein. Cannot exclude the possibility of an intraluminal thrombus at this level . Recommend ultrasound Doppler of this area as well as the left upper extremity. Indeed, given the recent medical history here I also recommend Doppler ultrasound of both lower extre mities rule out DVT in the lower extremities. Findings are recommendations discussed with ER physician following completion of this study 1 4:50 p.m. 3. RADIATION DOSE DELIVERED: 657.6mGy.cm Total DLP DATA REPOSITORY: All CT scans at this facility are submitted to the National Radiology Data Registry (NRDR) Dose Index Registry (DIR) with the [employer] ([employer]). RADIATION OPTIMIZATION: All CT scans at this facility use at least one of these dose optimization te chniques: automated exposure control; mA and/or kV adjustment per patient size (includes targeted exa ms where dose is matched to clinical indication); or iterative reconstruction.
[2021-08-10 15:08] LABS: Abs Immature Grans 0.01 10^3/uL (0.0-0.06); Absolute Basophil Count 0.02 10^3/uL (0.0-0.2); Absolute Eosinophil Count 0.13 10^3/uL (0.0-0.7); Absolute Lymphocyte Count 1.82 10^3/uL (1.2-3.4); Absolute Monocyte Count 0.38 10^3/uL (0.1-0.8); Absolute Neutrophil Count 3.21 10^3/uL (1.2-6.7); Basophils % 0.4; Eosinophils % 2.3; HCT 40.7 % (36.0-46.0); HGB 14.3 g/dL (11.2-15.7); Immature Grans % 0.2; Lymphocytes % 32.7; MCH 31.5 pg (27.0-33.0); MCHC 35.1 % (32.0-36.0); MCV 89.6 fL (80-95); MPV 9.7 fL (8.0-11.0); Monocytes % 6.8; Neutrophils % 57.6; Nucleated RBC 0 %; Platelet Count 279 10^3/uL (130-400); RBC 4.54 10^6/uL (3.93-5.22); RDW 11.7 % (11.7-14.6); RDW-SD 37.8 fL; WBC 5.57 10^3/uL (4.4-10.8)
[2021-08-10 15:23] LABS: PTT Activated 24.7 sec (21.0-27.5); Prothrombin Time 10.2 sec (9.3-11.0)
[2021-08-10 15:38] LABS: ALT 24 U/L (14-59); AST 11 U/L (15-37); Alkaline Phosphatase 40 U/L (46-116); Anion Gap 7.4 mmol/L (3-11); BUN 14 mg/dL (7-18); Bilirubin, Total 0.3 mg/dL (0.2-1.0); CO2 29.6 mmol/L (21.0-32.0); CREATININE 0.9 mg/dL (0.55-1.02); Chloride 105 mmol/L (98-107); Glucose 100 mg/dL (74-106); Magnesium 2.1 mg/dL (1.8-2.4); Potassium 3.7 mmol/L (3.5-5.1); Sodium 142 mmol/L (136-145); Total Protein 7.7 g/dL (6.4-8.2); Troponin I < 0.05 ng/mL (<0.06)
[2021-08-10 15:41] LABS: NT-proBNP 20 pg/mL (<300)
[2021-08-10] MEDS: Omnipaque 350 MG/ML 100 ML BTL IJ (16:29)
--- NOTE | 2021-08-10 16:54 | DI.VRAD_ITS ---
PROCEDURE INFORMATION: Exam: CTA Chest With Contrast Exam date and time: 08/10/2021 2:50 PM Age: 36 years old Clinical indication: Shortness of breath; Patient HX: SOB, vertigo, 6 weeks post positive covid. Patient has clot in right arm mid cephalic. TECHNIQUE: Imaging protocol: Computed tomographic angiography of the chest with contrast. 3D rendering (Not supervised by radiologist): MIP and/or 3D reconstructed images were created by the technologist. Radiation optimization: All CT scans at this facility use at least one of these dose optimization techniques: automated exposure control; mA and/or kV adjustment per patient size (includes targeted exams where dose is matched to clinical indication); or iterative reconstruction. Contrast material: OMNIPAQUE 350; Contrast volume: 100 ml; Contrast route: INTRAVENOUS (IV); COMPARISON: CR CHEST 2 VIEWS PA,LAT 12/26/2017 1:34 PM FINDINGS: Pulmonary arteries: Normal. No pulmonary emboli. Aorta: Unremarkable. No aortic aneurysm. No aortic dissection. Lungs: Unremarkable. No consolidation. No masses. Pleural spaces: Unremarkable. No pneumothorax. No pleural effusion. Heart: Unremarkable. No cardiomegaly. No pericardial effusion. Lymph nodes: Unremarkable. No enlarged lymph nodes. Spleen: Splenomegaly measuring 13.5 cm. Bones/joints: Scattered Schmorl's nodes of the thoracic spine. No aggressive osseous lesion is identified. No acute fracture. Soft tissues: Unremarkable. IMPRESSION: 1. No CT evidence of pulmonary arterial embolism. 2. Splenomegaly. Dictated and Authenticated by: Noam Gr MD. Ordering:LANEY Young MD
[2021-08-10] MEDS: Apixaban 5 MG TAB 10 MG PO (18:00)
[2021-08-10 18:03] VITALS: BP 147/87; PULSE 91; RESP 17; TEMP 37.2; O2SAT 97
== END 2021-08-10 18:05 | disposition home or self-care (01) ==
PROVIDERS: Physician Assistant; Emergency Provider Registered Nurse Emergency
DX: I82.621 Acute embolism and thrombosis of deep veins of right upper extremity (principal); Z86.16 Personal history of COVID-19; R00.0 Tachycardia, unspecified; R06.02 Shortness of breath
CPT/HCPCS: 36415; 71275; 80053; 93005; 99285; 83735; 83880; 84484; 85025; 85610; 85730; 93010; 93971; 99284; J3490

== ENCOUNTER 2021-08-18 01:40 | Outpatient (CLI) | payer OTHER, SELFPAY ==
--- NOTE | 2021-08-18 08:45 | DI.MRI_ITS ---
Exam(s) MR BRAIN WO/W EXAM: MR BRAIN WO/W CLINICAL HISTORY: recent covid with right arm dvt-unexplained .621,r42 TECHNIQUE: Multiplanar multisequence MRI of the brain was performed. Post contrast imaging was also obtained following intravenous injection of 20 cc of Dotarem. COMPARISON: No exams were available for comparison FINDINGS: The ventricular system is normal in appearance. No signal abnormality identified in the brain. The orbital and temporal bone structures appear intact as does the pituitary. Diffusion weighted imaging shows no evidence of infarction. Susceptibility weighted imaging shows no evidence of intracranial hemorrhage. There is normal flow void in the [place] vasculature. There is no evidence of intracranial mass lesion or enhancing lesion. The venous sinuses appear inta ct with no evidence of thrombosis. IMPRESSION: Normal brain MRI including post contrast imaging. DATA REPOSITORY:
--- NOTE | 2021-08-18 08:56 | DI.MRI_ITS ---
Exam(s) MR ANGIO BRAIN W EXAM: MR ANGIO BRAIN W CLINICAL HISTORY: DIZZINESS,R42,COVID,ACUTE EMBOLISM,I82.621. TECHNIQUE: Multiplanar multisequence MRI was performed. COMPARISON: MR MR BRAIN WO/W from 08/18/2021 FINDINGS: MR venogram of the cranial region was performed with intravenous infusion of 20 cc of donor M period Multi planer imaging was obtained based on 2D [id number]-fa-mlvemm acquisition. MP rage multi planer image s were also generated and reviewed. There is no evidence of venous sinus thrombosis of the brain or upper cervical region. The venous an atomy all appears within normal limits. Please see accompanying brain MRI report, the brain MRI was also negative. IMPRESSION: Negative MR venogram of the brain. DATA REPOSITORY:
[2021-08-18] MEDS: Gadoterate meglumine 20 ML VIAL IVP (15:59)
--- NOTE | 2021-08-18 16:13 | DI.VRAD_ITS ---
PROCEDURE INFORMATION: Exam: MRA Head Without and With Contrast, Venography Exam date and time: 08/18/2021 4:00 PM Age: 36 years old Clinical indication: Dizziness and giddiness; Patient HX: Post covid, right arm dvt TECHNIQUE: Imaging protocol: Magnetic resonance angiography of the head without and with contrast. Exam focused on the veins. Contrast material: DOTAREM; Contrast volume: 20 ml; Contrast route: INTRAVENOUS (IV); COMPARISON: MR BRAIN WO/W 08/18/2021 2:52 PM FINDINGS: Superior sagittal sinus: Patent. No evidence of venous sinus thrombosis. Straight sinus: Patent. Transverse sinuses: Patent. Sigmoid sinuses: Patent. Internal jugular veins: Visualized segment patent. Other vasculature: Visualized venous sinuses are patent with no evidence of thrombosis. The superior sagittal and inferior sagittal sinuses are unremarkable. Transverse sinuses and sagittal sinuses are unremarkable. Brain: Midline structures are unremarkable. Sella and suprasellar cistern are unremarkable. Other findings: No areas of abnormal enhancement after contrast administration. IMPRESSION: No evidence of venous sinus thrombosis. Dictated and Authenticated by: Ankit Reyna MD. Ordering:LISSETTE Chen MD
--- NOTE | 2021-08-18 16:19 | DI.VRAD_ITS ---
PROCEDURE INFORMATION: Exam: MR Head Without and With Contrast Exam date and time: 08/18/2021 4:01 PM Age: 36 years old Clinical indication: Dizziness; Patient HX: Post-covid, right arm dvt TECHNIQUE: Imaging protocol: MR of the head without and with intravenous contrast. Contrast material: DOTAREM; Contrast volume: 20 ml; Contrast route: INTRAVENOUS (IV); COMPARISON: CT HEAD WITHOUT CONTRAST 06/17/2017 9:09 AM FINDINGS: Brain: No acute intracranial hemorrhage. English/white matter differentiation is unremarkable. Cisterns are unremarkable. Brainstem is unremarkable. No suprasellar mass. No mass lesion. No mass effect. Thalamus and hypothalamus are unremarkable. Cerebellum is unremarkable. No areas of abnormal signal on the gradient echo images to suggest intracranial hemorrhage. No areas of restricted diffusion seen in the brain or cerebellum to suggest acute infarct. Midline structures are unremarkable. Sella and suprasellar cistern are unremarkable. No areas of abnormal enhancement after contrast administration. Cerebral ventricles: Normal. No ventriculomegaly. Bones/joints: Unremarkable. Paranasal sinuses: Normal as visualized. No acute sinusitis. Mastoid air cells: Normal as visualized. No mastoid effusion. Orbital cavity: Unremarkable. Soft tissues: Unremarkable. Other vasculature: Visualized venous sinuses are patent with no evidence of thrombosis. The superior sagittal and inferior sagittal sinuses are unremarkable. Transverse sinuses and sagittal sinuses are unremarkable. IMPRESSION: No evidence of pathology. Dictated and Authenticated by: Ankit Reyna MD. Ordering:LISSETTE Chen MD
== END 2021-08-18 02:00 ==
PROVIDERS: Visit Provider Family Medicine
DX: Z86.718 Personal history of other venous thrombosis and embolism (principal); R42 Dizziness and giddiness; Z86.16 Personal history of COVID-19
CPT/HCPCS: 70545; 70553

== ENCOUNTER 2021-09-26 15:06 | Outpatient (REF) | payer OTHER, SELFPAY ==
[2021-09-28 13:07] LABS: COVID-19 RT-PCR UVMMC Result Negative (Negative)
== END 2021-09-26 15:07 | disposition home or self-care (01) ==
LOC: LBN 15:06
PROVIDERS: Visit Provider Family Medicine
DX: Z20.822 Contact with and (suspected) exposure to COVID-19 (principal); R50.9 Fever, unspecified
CPT/HCPCS: U0003

== ENCOUNTER → 2022-04-10 08:36 | Outpatient (CLI) | payer OTHER, SELFPAY ==
--- NOTE | 2022-04-10 07:45 | DI.RAD_ITS ---
Exam(s) XR FOOT RT COMPLETE EXAM: XR FOOT RT COMPLETE CLINICAL HISTORY: lateral foot pain,prior 5th metatarsal fx,pain with wt bearing,[id number]. TECHNIQUE: 2D digital imaging was performed of the right foot. Three images were obtained. AP, obl ique and lateral views were obtained. COMPARISON: No exams were available for comparison FINDINGS: BONES: No acute fracture is present. No bony destructive lesion is seen. There is a well corticated o sseous density at the base of the 5th metatarsal likely reflecting a nonunited old fracture. There i s a small spur at the Achilles insertion site. JOINTS: No dislocation present. SOFT TISSUE: Normal. IMPRESSION: 1. No acute abnormality. 2. Chronic osseous density at the base of the 5th metatarsal likely reflecting old nonunited fracture . DATA REPOSITORY: RADIATION DOSE DELIVERED:
== END ==
PROVIDERS: Visit Provider Family Medicine
DX: M79.671 Pain in right foot (principal); M77.31 Calcaneal spur, right foot; M85.871 Other specified disorders of bone density and structure, right ankle and foot
CPT/HCPCS: 73630

== ENCOUNTER 2022-04-20 02:24 | Outpatient (CLI) | payer OTHER, SELFPAY ==
[2022-04-20 11:41] LABS: Anion Gap 9.4 mmol/L (3-11); BUN 12 mg/dL (7-18); CO2 27.6 mmol/L (21.0-32.0); CREATININE 0.9 mg/dL (0.55-1.02); Calcium 8.8 mg/dL (8.5-10.1); Calculated LDL 127 mg/dL (<100); Chloride 102 mmol/L (98-107); Cholesterol 202 mg/dL (<200); Glucose 91 mg/dL (74-106); HDL Cholesterol 56 mg/dL (40-60); Potassium 3.6 mmol/L (3.5-5.1); Sodium 139 mmol/L (136-145); Triglyceride 97 mg/dL (<150)
[2022-04-23 09:38] LABS: Hepatitis C Ab w Rflx HCV PCR Negative (Negative)
[2022-04-23 10:02] LABS: HIV-1/2 Ag & Ab Screen Negative (Negative)
[2022-04-23 12:05] LABS: Varicella IgG Antibody Positive (See Note)
== END 2022-04-20 02:25 | disposition home or self-care (01) ==
LOC: LBO 02:24
PROVIDERS: Visit Provider Family Medicine
DX: Z13.220 Encounter for screening for lipoid disorders (principal); Z11.59 Encounter for screening for other viral diseases; Z11.4 Encounter for screening for human immunodeficiency virus [HIV]
CPT/HCPCS: 36415; 80048; 80061; 86787; 86803; 87389

== ENCOUNTER → 2022-04-23 15:45 | Outpatient (CLI) | payer OTHER, SELFPAY ==
--- NOTE | 2022-04-23 | DI.RAD_ITS ---
Exam(s) XR FOOT RT COMPLETE EXAM: XR FOOT RT COMPLETE CLINICAL HISTORY: RT FOOT PAIN, INJURY 2004, PRIOR HX 5TH MT FRACTURE. TECHNIQUE: 2D digital imaging was performed. COMPARISON: CR XR FOOT RT COMPLETE from 04/10/2022 FINDINGS: 3 views No evidence of acute fracture or diastasis of the Lisfranc joint Again noted is the ununited nonacute fracture at the base of the 5th metatarsal-insertion site of the peroneus brevis tendon. Bone density is normal. No osseous lesions nor erosions. Asymmetric hallucal sesamoid are again goldy dent. No hallux valgus. No inferior calcaneal spur. IMPRESSION: As above. No radiographic change compared to the 04/10/2022. DATA REPOSITORY: RADIATION DOSE DELIVERED:
== END ==
PROVIDERS: Visit Provider Nurse Practitioner Adult Health
DX: M79.671 Pain in right foot (principal); S92.351K Displaced fracture of fifth metatarsal bone, right foot, subsequent encounter for fracture with nonunion
CPT/HCPCS: 73630

== ENCOUNTER 2022-11-12 02:56 | Outpatient (CLI) | payer OTHER, SELFPAY ==
[2022-11-12 16:45] LABS: TSH (W/Ref FT4) 1.46 uIU/mL (0.36-3.74)
== END 2022-11-12 02:57 | disposition home or self-care (01) ==
LOC: LBO 02:56
PROVIDERS: PCP Nurse Practitioner Family; Visit Provider Advanced Practice Midwife
DX: N92.5 Other specified irregular menstruation (principal)
CPT/HCPCS: 36415; 84443

== ENCOUNTER 2023-07-05 12:08 | Emergency (ER) | payer OTHER, SELFPAY ==
--- NOTE | 2023-07-05 12:15 | DI.RAD_ITS ---
Exam(s) XR ANKLE LT COMPLETE EXAM: XR ANKLE LT COMPLETE CLINICAL HISTORY: Left ankle pain TECHNIQUE: 2D digital imaging was performed. Three views. COMPARISON: No exams were available for comparison FINDINGS: BONES: No acute fracture is present. No bony destructive lesion is seen. Enthesophyte at Achilles i nsertion on calcaneus. JOINTS:The ankle mortise is normally aligned. SOFT TISSUE: Swelling over lateral malleolus. IMPRESSION: Soft tissue swelling. DATA REPOSITORY: RADIATION DOSE DELIVERED:
--- NOTE | 2023-07-05 12:20 | W.ED.GENAD ---
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 Your x-ray showed no sign of any fractures. Please wear this brace as needed for comfort. You may bear weight on your left lower extremity as you are able. Please rest elevate and ice your left ankle for 20 minutes on 20 minutes off for the next 24 hours. If you develop any color changes in your left ankle weakness or worsening pain please return to the emergency department. Otherwise follow-up as needed with your primary care provider next week. For your pain please take medications as follows: 1. Take acetaminophen (Tylenol), 1,000 mg (two 500 mg tabs) every 6 hours 2. Take ibuprofen (Advil), 400 mg every 6 hours. Discharge Data Discharge Date/Time-TO BE ENTERED AT DEPARTURE: 07/05/23 14:22 Medical Decision Making HPI This is a 38-year-old female arrived to the emergency department via private vehicle in the setting of a left ankle pain. Patient reports that she rolled her ankle yesterday. She reportedly heard a pop. She has had worsening pain. She has attempted treatment at home with ice ibuprofen and elevation. She has had no history of left ankle fractures in the past. She did not hit her head. She was in her usual state of health before her injury with no fevers chills nausea vomiting chest pain nor shortness of breath. Denies dysuria nor frequency. Exam General: Well-appearing in no acute distress speaking in complete sentences. Head: Normocephalic, atraumatic. Eye: [Pupils equal, round reactive to light.] Extraocular eye movements intact. No conjunctival injection. No scleral icterus. Ear, nose, mouth, throat: Grossly normal inspection. Normal voice, handling secretions normally. Neck: Trachea midline. Cardiovascular: Well-perfused distal extremities. Respiratory: Nonlabored respiration. Gastrointestinal: Nondistended abdomen. Musculoskeletal: Left ankle with moderate swelling and tenderness lateral malleolus greater than medial malleolus. No midfoot instability. PT and DP pulses intact. No rash to ankle. No lacerations. No proximal feel left tibial tenderness. Moving all 4 extremities spontaneously. Skin: Normal for age and race, grossly normal temperature and turgor. No acute rash. Neurologic: Alert and appropriate, no apparent acute deficits. Psychiatric: Mood and manner are appropriate. Grooming and personal hygiene are appropriate. MDM This is an overall well-appearing normothermic and not tachycardic 38-year-old female with left ankle pain status post inversion injury yesterday with swelling concerning for fracture versus ligamentous injury. No pain out of proportion to suggest necrotizing soft tissue infection. In the setting of trauma my suspicion for septic joint is low and I feel that the patient's swelling is secondary to her injury as there is no erythema to suggest septic joint. No midfoot instability to suggest LisFranc injury. No lateral foot pain to suggest Santoyo fracture. No calcaneal tenderness nor heel strike to suggest calcaneal fracture. No axial loading nor talar tenderness to suggest talar fracture. Patient has been icing and took ibuprofen several hours ago. Will dose with acetaminophen and provide lace up ankle brace if plain films are negative for any acute osseous abnormalities. We will make patient weightbearing as tolerated. She has been ambulatory since her fall. She had no head strike so my suspicion is low for intracranial hemorrhage. No proximal tibial tenderness to suggest Maisonneuve injury. 2 PM No acute osseous abnormalities on left ankle films. I met with the patient and explained return indications including worsening pain any color changes to her left lower extremity and any other concerns. I advised her to follow-up with her primary care provider next week as I discussed that physical therapy could have a role after her pain improves. We will provide her with a lace up ankle brace. Chronic conditions affecting the care of the patient: N/A History obtained from an outside historian: N/A External record review: [facility] EMR Medications: Acetaminophen Social determinants of health affecting disposition: N/A Management discussed with: N/A Treatment/interventions considered: N/A Response to therapies provided: N/A [facility] General Date/Time Provider Initiated Documentation: 07/05/23 12:19. Related Data Home Medications Medication Instructions Recorded Confirmed multivitamin 1 tab PO DAILY 07/01/20 07/05/23 levonorgestrel 21 mcg/24 hours (8 1 device intrauterine ONCE #1 ea 03/23/22 07/05/23 yrs) 52 mg intrauterine device (Mirena) Previous Rx's Medication Instructions Recorded levonorgestrel 21 mcg/24 hours (8 1 device intrauterine ONCE #1 ea 03/23/22 yrs) 52 mg intrauterine device (Mirena) Allergies Allergy/AdvReac Type Severity Reaction Status Date / Time lactose AdvReac Verified 07/05/23 12:27 ENVIRONMENTAL Allergy Mild Uncoded 07/05/23 12:27 General ROME: 3 PFSH All Active Problems (Updated 07/05/23 @ 13:58 by Jimbo Mares MD) Left ankle sprain (Acute) Rectal pain (Acute) Anxiety and depression (Acute 05/01/17) Increased BMI (body mass index) (Acute 01/17/17) Chondromalacia patellae, right knee (Acute) Deep vein thrombosis (DVT) of right upper extremity (Acute) 07/2021, dx with US large thrombus, assoc with Covid, on eliquis-plan 3 month course 03/2022-patient completed Eliquis without sequelae COVID-19 (Acute) 06/2021, breakthrough infection, likley associated with arm thrombus IUD surveillance (Acute) Menstruation, irregular (Acute) Migraine, menstrual (Acute) IUD (intrauterine device) in place (Acute) Changing nevus (Acute) Medical History Contraception management Mirena IUD after of her children. 2017 Mirena IUD removed after 3yrs - needed hysteroscopy in OR to retrieve device. 02/2018 OCPs. Internal derangement of right knee (08/12/19) Surgical History section X 2 Hysteroscopy (11/07/17) retrieval of Mirena IUD. lymph node removal (10/14/07) from neck Family History Mother Lupus Rheumatoid arthritis Diabetes Essential hypertension Depression Heart disease Hyperlipidemia Cancer Breast Father Essential hypertension Heart disease Hyperlipidemia Sister No problems noted. Maternal Grandfather No problems noted. Paternal Grandfather Alzheimer disease Smoker Maternal Grandmother Stroke Paternal Grandmother Essential hypertension Heart disease Hyperlipidemia Daughter No problems noted. Daughter No problems noted. Social History Smoking/Tobacco Use Status: Never Second Hand Exposure: No Smoking risk assessment performed?: Yes Alcohol Intake: current Alcohol Intake frequency: a few times a month Alcohol type: beer, wine and hard liquor Drug use: Never Substance use type: does not use Caregiver/Support person: No Household members: children Housing: house Communication Needs: None Do you need help understanding health information?: Never Pets and animals: Yes Pets and animals: dog(s) Do you think of yourself as: straight/heterosexual Current gender identity: female What is your relationship status?: How often do you talk on the phone with friends or family?: three or more times per week How often do you get together with friends or relatives?: once per week How often do you attend mosque or oriental orthodox services?: decline to answer Do you belong to any clubs or organized social groups?: no Panel score (0-1 are the most socially isolated patients): 1 What type of physical activity do you participate in: walking Duration: 45-60 minutes/day Frequency: 3-4 times per week Lesley/Rastafarian: No preference Special lesley needs: No Seatbelt use: always Helmet use: Yes Helmet use: always 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
[2023-07-05 12:24] VITALS: BP 139/83; PULSE 93; RESP 18; TEMP 36.8; O2SAT 96
[2023-07-05] MEDS: Acetaminophen 500 MG TAB 1000 MG PO (13:49)
--- NOTE | 2023-07-07 08:04 | NUR.NOTE ---
accessed chart to obtain where the injury is for the Ortho paperwork Nursing Note:
== END 2023-07-05 14:22 | disposition home or self-care (01) ==
PROVIDERS: Emergency Provider Emergency Medicine; PCP Nurse Practitioner Family
DX: M25.572 Pain in left ankle and joints of left foot; S93.402A Sprain of unspecified ligament of left ankle, initial encounter
CPT/HCPCS: 99284; 73610

== ENCOUNTER 2023-12-12 10:18 | Outpatient (REF) | payer OTHER, SELFPAY ==
[2023-12-13 14:12] LABS: Chlamydia Result Negative (Negative); GC Result Negative (Negative)
== END 2023-12-12 10:19 | disposition home or self-care (01) ==
LOC: LBN 10:18
PROVIDERS: PCP Nurse Practitioner Family; Visit Provider Obstetrics & Gynecology Gynecology
DX: Z11.3 Encounter for screening for infections with a predominantly sexual mode of transmission (principal)
CPT/HCPCS: 87491; 87591

== ENCOUNTER 2024-01-25 19:32 | Emergency (ER) | payer OTHER, SELFPAY ==
[2024-01-25 19:36] VITALS: BP 135/75; PULSE 97; RESP 18; TEMP 36.5; O2SAT 100
--- NOTE | 2024-01-25 20:16 | DI.CT_ITS ---
Exam(s) CT FACIAL WO EXAM: CT FACIAL WO CLINICAL HISTORY: left jaw injury, difficulty opening jaw. TECHNIQUE: Imaging Protocol: Axial computed tomography images with coronal and sagittal reformatted images were created and reviewed COMPARISON: CT HEAD WITHOUT CONTRAST from 06/17/2017 FINDINGS: CT Face: Facial Bones: No definite fracture is noted in facial bones. Sinuses and Mastoids: Unremarkable. Globes, extraocular muscles, optic nerves and retrobulbar fat: Normal. Upper aerodigestive tract: Normal. Mandible and bilateral temporomandibular joints: Normal. Soft tissues: Normal. IMPRESSION: 1. No acute facial fracture. 2. The temporomandibular joints are unremarkable. RADIATION DOSE DELIVERED: 446.69mGy.cm Total DLP 446.69mGy.cm Total DLP DATA REPOSITORY: All CT scans at this facility are submitted to the National Radiology Data Registry (NRDR) Dose Index Registry (DIR) with the [employer] (ACR). RADIATION OPTIMIZATION: All CT scans at this facility use at least one of these dose optimization te chniques: automated exposure control; mA and/or kV adjustment per patient size (includes targeted exa ms where dose is matched to clinical indication); or iterative reconstruction.
--- NOTE | 2024-01-25 21:00 | W.ED.GENAD ---
Discharge Plan Disposition Patient Disposition: Home Discharge Details Clinical Impression: Jaw pain Primary Care Provider: Gopal Maldonado ED Provider: Ariane Kilgore Home Meds and New Rx's Prescriptions: New orphenadrine citrate 100 mg tablet extended release 100 mg PO BID Qty: 10 0RF Continued multivitamin Tablet 1 tab PO DAILY albuterol sulfate 90 mcg/actuation HFA aerosol inhaler 2 inh inhalation Q6H PRN (Reason: shortness of breath or wheezing) Qty: 18 4RF bupropion HCl 200 mg tablet sustained-release 12 hr 200 mg PO QAM Qty: 90 0RF rizatriptan [Maxalt-STEEL BOX TOE INSERTER] 10 mg tablet,disintegrating 10 mg PO ONCE PRN (Reason: migraine headache) Qty: 10 0RF Rx Instructions: may repeat once after at least 2 hours norgestimate-ethinyl estradiol [Sprintec (28)] 0.25-35 mg-mcg tablet 1 tab PO DAILY Qty: 84 4RF penicillin V potassium 500 mg tablet 500 mg PO BID Qty: 20 0RF ondansetron HCl 4 mg tablet 4 mg PO Q8H PRN (Reason: nausea and vomiting) Qty: 20 0RF fluconazole 150 mg tablet 150 mg PO ONCE Qty: 1 1RF Rx Instructions: as a single dose. 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 HPI Narrative: This 38-year-old female presents with report of left jaw pain. She states she was eating dinner tonight and she felt like her jaw was displaced. She states she had trauma from her dog jumping up and hitting her and he 2 years ago. States she has had some intermittent pain since that time. Now she is having difficulty closing her jaw secondary to discomfort. She states it is a sharp pain and constant since this evening. She denies chance of . She has any chest pain or shortness of breath. She states she is otherwise healthy. 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) headache #10 tabs albuterol sulfate 90 mcg/actuation 2 inh inhalation Q6H PRN shortness 11/08/23 01/03/24 aerosol inhaler of breath or wheezing #18 grams norgestimate 0.25 mg-ethinyl 1 tab PO DAILY #84 tabs 12/12/23 01/03/24 estradiol 35 mcg tablet (Sprintec (28)) fluconazole 150 mg tablet 150 mg PO ONCE #1 tab 01/03/24 01/03/24 ondansetron HCl 4 mg tablet 4 mg PO Q8H PRN nausea and 01/03/24 01/03/24 vomiting #20 tabs penicillin V potassium 500 mg 500 mg PO BID #20 tabs 01/03/24 01/03/24 tablet orphenadrine citrate 100 mg 100 mg PO BID #10 tabs 01/25/24 tablet,extended release Previous Rx's Medication Instructions Recorded bupropion HCl 200 mg tablet,12 hr 200 mg PO QAM #90 tabs 10/31/23 sustained-release rizatriptan 10 mg disintegrating 10 mg PO ONCE PRN migraine 10/31/23 tablet (Maxalt-STEEL BOX TOE INSERTER) headache #10 tabs albuterol sulfate 90 mcg/actuation 2 inh inhalation Q6H PRN shortness 11/08/23 aerosol inhaler of breath or wheezing #18 grams norgestimate 0.25 mg-ethinyl 1 tab PO DAILY #84 tabs 12/12/23 estradiol 35 mcg tablet (Sprintec (28)) fluconazole 150 mg tablet 150 mg PO ONCE #1 tab 01/03/24 ondansetron HCl 4 mg tablet 4 mg PO Q8H PRN nausea and 01/03/24 vomiting #20 tabs penicillin V potassium 500 mg 500 mg PO BID #20 tabs 01/03/24 tablet orphenadrine citrate 100 mg 100 mg PO BID #10 tabs 01/25/24 tablet,extended release Allergies Allergy/AdvReac Type Severity Reaction Status Date / Time lactose AdvReac Diarrhea Verified 01/03/24 11:35 ENVIRONMENTAL Allergy Mild sneezing Uncoded 01/03/24 11:35 General Stated Complaint: Orthopedic ROME: 3 Course Vital Signs Vital signs: Vital Signs Temperature 36.5 C 01/25/24 19:36 Pulse 97 H 01/25/24 19:36 Respiratory Rate 18 01/25/24 19:36 Blood Pressure 135/75 01/25/24 19:36 Pulse Oximetry 100 01/25/24 19:36 Temperature 36.5 C 01/25/24 19:36 Temperature Source Skin 01/25/24 19:36 Pulse 97 H 01/25/24 19:36 Respiratory Rate 18 01/25/24 19:36 Respiratory Effort Normal, Non-Labored 01/25/24 19:41 Blood Pressure 135/75 01/25/24 19:36 Blood Pressure Position Sitting 01/25/24 19:36 Pulse Oximetry 100 01/25/24 19:36 Oxygen Delivery Method Room Air 01/25/24 19:36 Oxygen Flow Rate 0 01/25/24 19:36 Pain Level 4 01/25/24 19:36 Medical Decision Making 38-year-old female presents with report of eating dinner tonight feeling a popping sensation in her jaw. She has had pain since that time. She denies any fever or chills. She states she is able to open and close and move [id number] with discomfort CT was ordered as she has had prior trauma which does not show evidence of acute abnormality, specifically there is no evidence of jaw dislocation or subluxation Given Flexeril and Motrin for discomfort will need close outpatient reassessment Airway patent, no acute distress, no trismus Return precautions reviewed and patient expressed understanding Quality:SDOH Health Related Social Needs: No Data to Display PFSH All Active Problems (Updated 01/25/24 @ 21:40 by MARYLIN Cross) Jaw pain (Acute) Oral contraception initial prescription (Acute) Encounter for IUD removal (Acute) Rectal pain (Acute) Anxiety and depression (Acute 05/01/17) Increased BMI (body mass index) (Acute 01/17/17) Chondromalacia patellae, right knee (Acute) Deep vein thrombosis (DVT) of right upper extremity (Acute) 07/2021, dx with US large thrombus, assoc with Covid, on eliquis-plan 3 month course 03/2022-patient completed Eliquis without sequelae COVID-19 (Acute) 06/2021, breakthrough infection, chi associated with arm thrombus IUD surveillance (Acute) Menstruation, irregular (Acute) Migraine, menstrual (Acute) IUD (intrauterine device) in place (Acute) Changing nevus (Acute) Medical History Internal derangement of right knee (08/12/19) Contraception management Mirena IUD after of her children. 2017 Mirena IUD removed after 3yrs - needed hysteroscopy in OR to retrieve device. 02/2018 OCPs. Surgical History lymph node removal (10/14/07) from neck section X 2 Hysteroscopy (11/07/17) retrieval of Mirena IUD. Family History Mother Lupus Rheumatoid arthritis Diabetes Essential hypertension Depression Heart disease Hyperlipidemia Cancer Breast Father Essential hypertension Heart disease Hyperlipidemia Sister No problems noted. Maternal Grandfather No problems noted. Paternal Grandfather Alzheimer disease Smoker Maternal Grandmother Stroke Paternal Grandmother Essential hypertension Heart disease Hyperlipidemia Daughter No problems noted. Daughter No problems noted. Social History Smoking/Tobacco Use Status: Never Second Hand Exposure: No Smoking risk assessment performed?: Yes Alcohol Intake: current Alcohol Intake frequency: a few times a month Alcohol type: beer, wine and hard liquor Drug use: Never Substance use type: does not use Caregiver/Support person: No Household members: children Housing: house Communication Needs: None Do you need help understanding health information?: Never Pets and animals: Yes Pets and animals: dog(s) Do you think of yourself as: straight/heterosexual Current gender identity: female What is your relationship status?: How often do you talk on the phone with friends or family?: three or more times per week How often do you get together with friends or relatives?: once per week How often do you attend roman catholic or church services?: decline to answer Do you belong to any clubs or organized social groups?: no Panel score (0-1 are the most socially isolated patients): 1 What type of physical activity do you participate in: walking Duration: 45-60 minutes/day Frequency: 3-4 times per week Lesley/Holiness: No preference Special lesley needs: No Seatbelt use: always Helmet use: Yes Helmet use: always Drive intox or ride w/intox grab driver: No Do you feel safe at home: Yes Do you feel safe in your relationship?: Yes History History Para Hx # Term Pregnancies 2 Multiple births Hx # Pregnancies Ectopic pregnancies AB induced Hx Number of Living Children AB spontaneous
--- NOTE | 2024-01-25 21:08 | DI.VRAD_ITS ---
PROCEDURE INFORMATION: Exam: CT Maxillofacial Without Contrast; Mandible Exam date and time: 01/25/2024 8:12 PM Age: 38 years old Clinical indication: Jaw pain; Patient HX: Left jaw injury, difficulty opening jaw TECHNIQUE: Imaging protocol: Computed tomography maxillofacial without contrast. Exam focused on the mandible. Radiation optimization: All CT scans at this facility use at least one of these dose optimization techniques: automated exposure control; mA and/or kV adjustment per patient size (includes targeted exams where dose is matched to clinical indication); or iterative reconstruction. COMPARISON: MR ANGIO BRAIN W 08/18/2021 3:20 PM FINDINGS: Bones/joints: Mandible is unremarkable. No acute fracture. Paranasal sinuses: Normal. No air-fluid levels. Soft tissues: Unremarkable. IMPRESSION: Unremarkable exam. No TMJ abnormality seen to account for symptoms. Dictated and Authenticated by: Martha Angela MD. Ordering:MICHOACANO Thakkar MD
[2024-01-25 21:53] VITALS: BP 135/75; PULSE 76; RESP 18; TEMP 36.5; O2SAT 100
[2024-01-25 21:54] VITALS: BP 135/75; PULSE 76; RESP 18; TEMP 36.5; O2SAT 100
[2024-01-25] MEDS: Cyclobenzaprine 10 MG TAB, 3 TABS/BTL PO (21:55)
== END 2024-01-25 21:54 | disposition home or self-care (01) ==
LOC: ER 21:55
PROVIDERS: Emergency Provider Physician Assistant; PCP Nurse Practitioner Family
DX: R68.84 Jaw pain
CPT/HCPCS: 99284; 70486; 99283

== ENCOUNTER 2024-06-29 17:15 | Emergency (ER) | payer OTHER, SELFPAY ==
[2024-06-29 17:16] VITALS: BP 139/84; PULSE 99; RESP 14; TEMP 37.1; O2SAT 98
--- OUTSIDE RECORDS SUMMARY | 2024-06-29 17:21 | XMS_ITS | Encounter Summary ---
Author Organization [facility] Address [facility] [place] [address] Care Team Providers Care Real Estate Economist Name Role Phone Arcelia Roa APRN Primary Care Provider Encounter Details Date Type Department Care Team (Late st Contact Info) Description 05/28/2022 9:00 PM EDT Ancillary Procedure Radiology [facility] [place] [id number] Azeb Lopez APRN [facility] [place] [address] Social History Tobacco Use Types Packs/Day Years Used Date Smoking Tobacco: Never Smokeless Tobacco: Never Alcohol Use Standard Drinks/Week Comments Not Currently 0 (1 standard drink = 0.6 oz pur e alcohol) Sex and Gender Information Value Date Recorded Sex Assigned at Not on file Gender Identity Not on file Sexual Orientation Not on file documented as of this encounter Plan of Treatment Not on file documented as of this encounter Procedures Procedure Name Priority Date/Time Associated Diagnosis Comments FILM LIBRARY STORAGE ONLY CT LOWER EXTREMITY Routine 05/28/2022 8:55 PM EDT documented in this encounter Results * Film Library- Storage Only CT Lower Extremity (05/28/2022 8:55 PM EDT) Narrative WILL - 05/28/2022 8:55 PM EDT This exam is auto-finalizing. It's purpose is for storage only. Azeb Lopez APRN IMG FILM LIBRARY OR DERABLES [facility] [place], [place] documented in this encounter Visit Diagnoses Not on filedocumented in this encounter Care Teams Real Estate Economist Relationship Specialty Start Date End Date Arcelia Roa, LOKI [address] [place] [address] PCP - General Family Medicine 03/31/20 07/06/22 documented as of this encounter
--- OUTSIDE RECORDS SUMMARY | 2024-06-29 17:21 | XMS_ITS | Encounter Summary ---
Author Organization [facility] Address [address] [place] [address] Care Team Providers Care Iron Carrier Name Role Phone Marcus Yisel Gopal Jerome BROTHERS Primary Care Provider [phone] Encounter Details Date Type Department Care Team (Late st Contact Info) Description 06/25/2024 9:05 EDT Phlebotomy Only [facility] - Outpatient Phlebotomy Drawing [address] [place] [address] Lab, [facility] Op Phlebotomy Screening-pulmonary TB; Immunity status testing Social History Tobacco Use Types Packs/Day Years Used Date Smoking Tobacco: Never Assessed Sex and Gender Information Value Date Recorded Sex Assigned at Not on file Gender Identity Female 06/25/2024 9:06 EDT Sexual Orientation Not on file documented as of this encounter Plan of Treatment Pending Results Name Type Priority Associated Diagnoses Date /Time MISCELLANEOUS TEST, [place] Lab Routine Immunity status testing 06/25/2024 9:17 EDT documented as of this encounter Procedures Procedure Name Priority Date/Time Associated Diagnosis Comments QUANTIFERON MITOGEN (PERFORMABLE) Routine 06/25/2024 9:17 EDT Screening-pulmonar y TB QUANTIFERON TB2 (PERFORMABLE) Routine 06/25/2024 9:17 EDT Screening-pulmonar y TB QUANTIFERON TB1 (PERFORMABLE) Routine 06/25/2024 9:17 EDT Screening-pulmonar y TB QUANTIFERON NIL (PERFORMABLE) Routine 06/25/2024 9:17 EDT Screening-pulmonar y TB QUANTIFERON INTERPRETATION (PERFORMABLE) Today 06/25/2024 9:17 EDT Screening-pulmonar y TB QUANTIFERON TB GOLD PLUS Routine 06/25/2024 9:17 EDT Screening-pulmonar y TB MEASLES IGG AB Routine 06/25/2024 9:17 EDT Immunity status testing RUBELLA IGG ANTIBODY Routine 06/25/2024 9:17 EDT Immunity status testing HEPATITIS B SURFACE ANTIBODY Routine 06/25/2024 9:17 EDT Immunity status testing VARICELLA IGG ANTIBODY Routine 9:17 EDT Immunity status testing MUMPS ANTIBODY IGG Routine 06/25/2024 9: 17 EDT Immunity status testing documented in this encounter Results * QUANTIFERON INTERPRETATION (PERFORMABLE) (06/25/2024 9:17 EDT) Quantiferon Interpretation Negative Negative 06/29/2024 14:49 EDT [facility] Comment:No interferon-gamma response to M. tuberculosis antigens was detected. ??Infection with M. tuberculosis is unlikely. A single negative result does not exclude infection with M. tuberculosis. ??In patients at high risk for M. tuberculosis infection, a second test should be considered. TB1 Ag minus Nil 0.01 IU/ml 06/29/20 24 14:49 EDT [facility] TB2 Ag minus Nil 0.00 IU/mL 06/29/20 14:49 T [facility] Blood VENOUS BLOOD / Unknown Venipuncture / Unknown 06/25/2024 9:17 EDT 06/29/2024 13:42 EDT Love Huerta MD IMMUNOLOGY AND SEROL OGY ORDERABLES [facility] [address] [place] [address] * QUANTIFERON MITOGEN (PERFORMABLE) (06/25/2024 9:17 EDT) Blood VENOUS BLOOD / Unknown Venipuncture / Unknown 06/25/2024 9:17 EDT 06/25/2024 9:27 EDT Love Huerta MD IMMUNOLOGY AND SEROL OGY ORDERABLES [facility] [address], [place] [phone] * QUANTIFERON TB2 (PERFORMABLE) (06/25/2024 9:17 EDT) Blood VENOUS BLOOD / Unknown Venipuncture / Unknown 06/25/2024 9:17 EDT 06/25/2024 9:27 EDT Love Huerta MD IMMUNOLOGY AND SEROL OGY ORDERABLES Performing Organization Address City/[facility]/ZIP Co de Phone Number [facility] [address], [place] [phone] * QUANTIFERON TB1 (PERFORMABLE) (06/25/2024 9:17 EDT) Blood VENOUS BLOOD / Unknown Venipuncture / Unknown 06/25/2024 9:17 EDT 06/25/2024 9:27 EDT Love Huerta MD IMMUNOLOGY AND SEROL OGY ORDERABLES Performing Organization Address City/[facility] Co de Phone Number [facility] [address] [place] [id number] * QUANTIFERON NIL (PERFORMABLE) (06/25/2024 9:17 EDT) Blood VENOUS BLOOD / Unknown Venipuncture / Unknown 06/25/2024 9:17 EDT 06/25/2024 9:27 EDT Love Huerta MD IMMUNOLOGY AND SEROL OGY ORDERABLES Performing Organization Address City/[facility]/ZIP Co de Phone Number [facility] [address], [place] [phone] * HEPATITIS B SURFACE ANTIBODY (06/25/2024 9:17 EDT) Hep B Surface Ab, Quantitative 14.3 See Note mIU/mL 06/25/2024 10:39 EDT [facility] Comment: Clinical Interpretation of Immune Status: Anti-HBs detected at >10 mIU/mL. Patient is considered to be immune to infection with HBV. It has not been determined what the clinical significance is for values greater than or = 12 mIU/mL, other than the individual is considered to be immune to HBV infection. Reference Range for Hep B Surface Ab, Quant: Positive: ?>= 12.00 mIU/mL Negative: ?< 5.00 mIU/mL Indeterminate: ??>= 5.00 mIU/mL and < 12.00 mIU/mL Blood VENOUS BLOOD / Unknown Venipuncture / Unknown 06/25/2024 9:17 EDT 06/25/2024 9:27 EDT Love Huerta MD CHEMISTRY & BLOOD GA S ORDERABLES Performing Organization Address [facility]/ZIP Co de Phone Number [facility] [address] [place] [address] * VARICELLA IGG ANTIBODY (06/25/2024 9:17 EDT) Varicella IgG Ab Positive See Note 06/26/2024 21:49 EDT [facility] Blood VENOUS BLOOD / Unknown Venipuncture / Unknown 06/25/2024 9:17 EDT 06/25/2024 9:27 EDT Love uHerta MD IMMUNOLOGY AND SEROL OGY ORDERABLES Performing Organization Address City/[facility]/ZIP Co de Phone Number [facility] [address] [place] [address] * RUBELLA IGG ANTIBODY (06/25/2024 9:17 EDT) Rubella IgG Ab Positive See Note 06/25/2024 19:08 EDT [facility] Comment:The presence of Rube lla IgG suggests immunity against Rubella. Blood VENOUS BLOOD / Unknown Venipuncture / Unknown 06/25/2024 9:17 EDT 06/25/2024 9:27 EDT Love Huerta MD CHEMISTRY & BLOOD GA S ORDERABLES Performing Organization Address [facility]/ZIP Co de Phone Number [facility] [address] [place] [address] * MUMPS ANTIBODY IGG (06/25/2024 9:17 EDT) Mumps Antibody IgG Positive See Note 06/26/2024 21:49 EDT [facility] Comment:Presence of detectab le mumps virus IgG antibodies. Blood VENOUS BLOOD / Unknown Venipuncture / Unknown 06/25/2024 9:17 EDT 06/25/2024 9:27 EDT Love Huerta MD IMMUNOLOGY AND SEROL OGY ORDERABLES Performing Organization Address [facility] Co de Phone Number [facility] [address] [place] [address] * MEASLES IGG AB (06/25/2024 9:17 EDT) Measles IgG Ab Equivocal See Note 06/26/2024 21:49 EDT [facility] Comment:Confirmation testing has been added by reflex. Blood VENOUS BLOOD / Unknown Venipuncture / Unknown 06/25/2024 9:17 EDT 06/25/2024 9:27 EDT Love Huerta MD IMMUNOLOGY AND SEROL OGY ORDERABLES Performing Organization Address [facility] Co de Phone Number [facility] [address] [place] [address] documented in this encounter Visit Diagnoses Diagnosis Screening-pulmonary TB Screening examination for pulmonary tuberculosis Immunity status testing Antibody response examination documented in this encounter Care Teams Iron Carrier Relationship Specialty Start Date End Date Gopal Maldonado, DNP [address] [place] [phone] PCP - General Family Medicine - Primary Care 06/25/24 documented as of this encounter
--- OUTSIDE RECORDS SUMMARY | 2024-06-29 17:21 | XMS_ITS | Encounter Summary ---
Author [place] [address] Care Team Providers Care Shank Piece Tacker Name Role Phone Arcelia Roa APRN Primary Care Provider Encounter Details Date Type Department Care Team (Late st Contact Info) Description 11/08/2020 [place] [id number] Shruthi Rice Social History Tobacco Use Types Packs/Day Years Used Date Smoking Tobacco: Never Assessed Sex and Gender Information Value Date Recorded Sex Assigned at Not on file Gender Identity Not on file Sexual Orientation Not on file documented as of this encounter Plan of Treatment Not on file documented as of this encounter Visit Diagnoses Not on filedocumented in this encounter Care Teams Shank Piece Tacker Relationship Specialty Start Date End Date Arcelia Roa APRN [address] [place] [address] PCP - General Family Medicine 03/31/20 07/06/22 documented as of this encounter
--- OUTSIDE RECORDS SUMMARY | 2024-06-29 17:21 | XMS_ITS | Encounter Summary ---
Author Organization [facility] [place] [address] Care Team Providers Care Steward Dishwasher Name Role Phone Arcleia Roa APRN Primary Care Provider Encounter Details Date Type Department Care Team (Late st Contact Info) Description 04/10/2022 Ancillary Procedure Radiology Library at [facility] [address] [place] [phone] Arcelia Roa APRN [address] [place], [place] [address] Social History Tobacco Use Types Packs/Day Years [...] Associated Diagnosis Comments FILM LIBRARY STORAGE ONLY DX FOOT Routine 04/10/2022 12:00 AM EDT documented in this encounter Results * Film Library- Storage Only DX Foot (04/10/2022 12:00 AM EDT) Narrative RAD - 04/13/2022 2:01 PM EDT This exam is auto-finalizing. It's purpose is for storage only. Arcelia Roa APRN IMG FILM LIBRARY ORD ERABLES [place] documented in this encounter Visit Diagnoses Not on filedocumented in this encounter Care Teams Steward Dishwasher Relationship Specialty Start Date End Date Arcelia Roa APRN [address] [place] [address] PCP - General Family Medicine 03/31/20 07/06/22 documented as of this encounter
--- OUTSIDE RECORDS SUMMARY | 2024-06-29 17:21 | XMS_ITS | Encounter Summary ---
Author Organization [facility] [place] [address] Care Team Providers Care Haulage Boss Name Role Phone Arcelia Roa APRN Primary Care Provider Encounter Details Date Type Department Care Team (Late st Contact Info) Description 04/17/2022 [place] [address] Azeb Lopez APRN [facility] [place] [address] Right foot pain Social History Tobacco Use Types Packs/Day Years Used Date Smoking Tobacco: Never Assessed Sex and Gender Information Value Date Recorded Sex Assigned at Not on file Gender Identity Not on file Sexual Orientation Not on file documented as of this encounter Plan of Treatment Not on file documented as of this encounter Visit Diagnoses Diagnosis Right foot pain Pain in limb documented in this encounter Care Teams Haulage Boss Relationship Specialty Start Date End Date Arcelia Roa APRN [facility] [address] [place] [address] PCP - General Family Medicine 03/31/20 07/06/22 documented as of this encounter
--- OUTSIDE RECORDS SUMMARY | 2024-06-29 17:21 | XMS_ITS | Encounter Summary ---
[place] [address] Care Team Providers Care Clinical Informaticist Name Role Phone Arcelia Roa APRN Primary Care Provider Reason for Visit * Consultation (Routine) - Specialty Diagnoses / Procedures Referred By Roni t Referred To Contact Gastroenterology Diagnoses chronic rectal pain Procedures consultation Arcelia Roa APRN [address] [place] [address] [facility] [address] [place] [address] Referral ID Status Reason Start Date Expiration Date V isits Requested Visits Authorized [id number] 03/31/2020 03/31/2021 1 1 Encounter Details Date Type Department Care Team (Latest Contact Info) Description 05/20/2020 10:00 AM EDT TH Visit (TeleHealth) [place] [address] Vanesa Hackett MD [facility] [place] [address] Refractory nausea and vomiting; Heartburn; Chronic constipation; Proctalgia fugax Social History Tobacco Use Types Packs/Day Years Used Date Smoking Tobacco: Never Assessed Sex and Gender Information Value Date Recorded Sex Assigned at Not on file Gender Identity Not on file Sexual Orientation Not on file documented as of this encounter Patient Instructions * Patient Instructions* Vanesa Hackett MD - 05/20/2020 10:00 AM EDT Recommendations ?? Blood test orders sent to [facility] - please go and get these done ?? Lifestyle modifications for GERD including weight loss (see below) ?? Avoid ibuprofen ?? Try Prilosec (Omeprazole) 20mg by mouth 30 minutes prior to dinner for 8 weeks. ?? Recommend upper endoscopy if no improvement in nausea and vomiting ?? Healthy bowel habits (see below) ?? Start Metamucil (or generic 100% psyllium) to regulate bowel habits (daily, soft stools; helps diarrhea and constipation) ??? Start at 1 teaspoon (3 grams of fiber) daily in 8 ounces of water for 1 week ??? Increase to 1 teaspoon in 8 ounces of water twice a day one week ??? Then maintain one teaspoon in 8 ounces of water three times a day ?? Can slowly increase to 2 tablespoons (6 teaspoons) if needed ?? If you do not have a bowel movement for 3 days, it is ok to use Miralax (1 serving = 1 capful in8 ounces of water), take daily until you have a bowel movement. Miralax can be taken daily (this issafe) if needed. ?? We will want to do further testing if there is no improvement Ways to help your stomach and reduce reflux ? Change your eating habits. ? It's best to eat several small meals instead of two or three large meals. ? After you eat, wait 2 to 3 hours before you lie down. ? Chocolate, mint, and alcohol can make reflux/heartburn worse. ? Spicy foods, foods that have a lot of acid (like tomatoes and oranges), and coffee can make heartburn/reflux symptoms worse in some people. If your symptoms are worse after you eat a certain food, you may want to stop eating that food to see if your symptoms get better. ? Raise the head of your bed 6 to 8 inches by putting the frame on blocks or placing a foam wedge under the head of your mattress. (Adding extra pillows does not work.) ? Do not wear tight clothing around your middle. ? Lose weight if you need to. Losing just 5 to 10 pounds can help. Healthy Bowel Habits 1. Eat all of your meals (breakfast, lunch, and dinner) at a predictable time each day. The bowel functions best when food is introduced at the same regular intervals. 2. Eat foods in similar amounts. The bowel functions best when food is in similar quantity. The size of different meals taken through the day may vary, but the amount of food eaten at a given meal (breakfast, lunch, or dinner) should be about the same quantity from day to day. 3. Breakfast is the most important meal involved in bowel stimulation. Make sure you eat breakfast every day. 4. Eat a high fiber diet that includes both soluble and insoluble fiber. 5. Keep caffeine to a minimum. Caffeine is a diuretic drawing fluid from your colon and leaving your stools hard. 6. Drink plenty of decaffeinated fluids. Ideally a person should drink 64 ounces a day or 8 glassesof water, especially if you are eating a fiber-rich diet. 7. Exercise daily. Exercise helps things move through the gut. Bowel function is helped most when exercise is at a consistent daily time. Bowel Movement Technique Find your best time of day to have a bowel movement. Usually the best time of day for a bowel movement will be a half hour to an hour after breakfast. For some people a half hour to an hour after lunch will work better. These times are best because the body uses the gastro-colic reflex, a stimulation of bowel motion that occurs with eating, to help produce a bowel movement. Make sure that you arenot rushed and have convenient access to a bathroom at this time. ??? Sit on toilet and lean forward, resting forearms on thighs. Lift heels or place feet on stool. ??? Alternate position-may try leaning forward and grasping ankles. ??? Relax rectum, feeling it slightly bulge outward. ??? Keeping lips, jaw and mouth open will facilitate relaxation of the pelvic floor during your bowel movement. ??? Breathe in through nose and exhale through mouth or perform gentle hissing through the teeth. Gently direct the air down and back to the rectum, keeping your abdomen firm. ??? When finished -contract pelvic floor muscles to restore normal pelvic floor tone. Repeat 3-4 times. If still unsuccessful, contract the pelvic floor and get off the toilet. Avoid straining. Source: https://medicine.[facility]/sites/default/files/content/downloads/azzatjc-tfqap-u abits.pdf [place] Bowel Control Program (10/2010) You can try this Recipe for Bowel Regularity Mix together: 1 cup applesauce 1 cup oat bran or unprocessed wheat bran 1 cup of prune juice Begin with 1-2 tablespoons each evening mixed with or followed by on 6-8 oz cup of water or juice. This should help to soften and regulate your bowel movements within 2 weeks. If no change occurs, slowly increase serving to 3-4 tablespoons. This may be stored in your refrigerator or freezer. 1 to 2 tablespoon servings may be frozen in sectioned ice cube trays or in foam plastic egg cartons and thawed as needed. documented in this encounter Progress Notes * Vanesa Hackett MD - 05/20/2020 10:00 AM EDT [facility] Section of Gastroenterology and Hepatology New Patient Telemedicine Visit PCP: Arcelia Roa APRN Referring provider: Arcelia Roa APRN [address] [facility] [place] [address] HPI This is a 35 y.o. female kindly referred by Arcelia Roa APRN for evaluation and management of chronic rectal pain. Patient's primary concern today: sick of not feeling well As a child, recalls frequent stomach aches, constipation and diarrhea (never normal). Told she was lactose intolerant. Avoiding dairy did seem to help. As an adult, she is not sure about lactose intolerance. Can up to a week without a BM. Hard rabbit pellets. These are hard to evacuate - straining. Scared of Miralax (told there was dependency issues on this by her parents). No significant abdominal discomfort. Mild bloating and pressure in the sides of her abdomen. No urge to have a BM. Usually lets things run their course. No issues with using public restrooms or problems with withholding. Rocks on the toilet and moves around to help with evacuation. No digital maneuvers. No blood in the stools except for once on the tissue (1 year ago) - never in the toilet - with a large hard stool. + Gas. No recent change in bowel habits. Then could have normal once daily BMs. BMs are soft, sticky, has to wipe a lot, smelly. Feels completely evacuated. No significant straining with this. No sensation of obstructive defecation. Loose stools associated with abdominal discomfort (hours) about 1x/month, pain resolves with BMs. More frequents stools with menstrual cramps. Rectal pain: Spasms, painful. Sudden onset. Chama like someone was squeezing the rectum from the inside. Wanted to curl up in the position. Would go away quickly. Has not had it in months. Noticed it around the time she was ovulating. No perianal swelling or drainage. Duration of pain (>/< 30 minutes): 15 minutes to 30 minutes at most Routine - Varies - Wakes up around 6am - Doesn't always eat breakfast - Breakfast: yogurt, oatmeal, breakfast sandwiches, (egg, cisneros, cheese or sausage), weekend pancakes - Beverages: regular coffee over the past year - 2 to 3x/wk has a cup of coffee, regular with creamer - Lunch: salad or sandwich (cafferia) - Dinner 6-6:30: pizza, tacos, wraps, salad, stir khan and chicken - Sometimes dessert: ice cream - Bed: 9:30pm - Tried gluten-free and had trouble with this Nausea in the AM - since December. Begins within 30 minutes of waking up. Not . Drinks coffee and yogurt - vomits this back up within a few minutes. No abdominal pain. Worsens nausea and is forceful. If she doesn't eat anything she dry heaves or it is bile. Not food from yesterday. Denies changes in routine. New for her. Does feel like she is a puker. Eating is fine after that - no N/V. She does have frequent migraines - about 1-3 per month - but N/V not a part of this, no morning headaches. No sour taste in the mouth. Using ibuprofen for migraines (4 ibuprofen for 1-2 days + caffeine). Intermittent heartburn - notices it more when she's constipated - could go on for about a week at atime and then resolve. Can have heartburn when supine. Feels like food is sitting in the upper gut.Takes tums PRN, sometimes. No dysphagia. Weight is stable. Doesn't like taking meds. Review of systems: 14-point review of systems reviewed and negative except as above. My review of the patients's history and testing (labs, endoscopies, imaging) is summarized below: BACKGROUND ?? Per PCP notes, pt c/o intermittent mucous in the stools, alternating between loose and constipation. Rectal exam non-revealing and occult blood was negative. PMHx ?? Anxiety ?? Depression PSHx ?? C-sections ?? D&C ?? IUD - since come out SHx Never smoker. Recently moved. Lived in [place] for 6 years. Previously in [place]. 2 kids - 8 to 10 yo - planis to go to school. 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 ETOH - a couple of nights. FHx ?? Celiac (aunts x 2) ?? Lactose intolerance ?? Mother with Lupus and RA, heart disease and DM ?? Father with heart disesae TESTING ?? N/A TRIALS ?? N/A There is no problem list on file for this patient. No current outpatient medications on file. Physical Exam: No physical exam performed during this phone/telemedicine visit. PERTINENT LABS AND IMAGING: As noted above Impression: 35 y.o. female kindly referred for evaluation of rectal pain. Rectal pain is classic for proctalgia fugax. This has resolved. We discussed the potential association with pelvic floor dysfunction. Chronic constipation, lifelong; occasional diarrhea (+ cramps, relieved with defecation) - all likely functional. No significant discomfort with constipation fits with more CIC. Possible dysmotility (colonic inertia). May need work-up for pelvic floor dysfunction based on response to treatment. No alarming signs. No indication for colonoscopy at this time and she prefers to avoid. Nausea and vomiting in the morning is more recent. Also has periods of heartburn, particularly whenconstipated. I am most suspicious of GERD, PUD, erosive gastropathy or developing chronic nausea and vomiting syndrome. Consider food intolerances (lactose, gluten) and celiac disease. She is able toeat normally throughout the rest of the day, is maintaining her weight and does not vomit food, so I don't think there is a gastric outlet or proximal small bowel obstruction; I think we can try empiric therapy before endoscopy. This does not sound entirely typical for gastroparesis though I think dysmotility is higher on the differential given her constipation so we may need to test for this. She is not . She is not having morning headaches to suggest pseudotumor or another neurologic process. Plan: ?? Blood work - CBC, CMP, TTG IgA/IgA, TSH sent to [facility] ?? Lifestyle modifications for GERD including weight loss (see below) ?? Avoid ibuprofen ?? Try Prilosec (Omeprazole) 20mg by mouth 30 minutes prior to dinner for 8 weeks. Consider increasing dose based on response. ?? Recommend upper endoscopy if no improvement in nausea and vomiting ?? Consider trial of lactose-free, gluten-free diet after celiac testing based on above ?? Healthy bowel habits (see below) ?? Start Metamucil (or generic 100% psyllium) to regulate bowel habits (daily, soft stools; helps diarrhea and constipation) ??? Start at 1 teaspoon (3 grams of fiber) daily in 8 ounces of water for 1 week ??? Increase to 1 teaspoon in 8 ounces of water twice a day one week ??? Then maintain one teaspoon in 8 ounces of water three times a day ?? Can slowly increase to 2 tablespoons (6 teaspoons) if needed ?? If no bowel movement for 3 days, it is ok to use Miralax (1 serving = 1 capful in 8 ounces of water), take daily until BM, ok to use daily. ?? If no improvement in constipation - colonoscopy, ARM-BET ?? If ongoing upper GI sx and negative endoscopy - likely get cross-sectional imaging and smart pill Ways to help your stomach and reduce reflux ? Change your eating habits. ? It's best to eat several small meals instead of two or three large meals. ? After you eat, wait 2 to 3 hours before you lie down. ? Chocolate, mint, and alcohol can make reflux/heartburn worse. ? Spicy foods, foods that have a lot of acid (like tomatoes and oranges), and coffee can make heartburn/reflux symptoms worse in some people. If your symptoms are worse after you eat a certain food, you may want to stop eating that food to see if your symptoms get better. ? Raise the head of your bed 6 to 8 inches by putting the frame on blocks or placing a foam wedge under the head of your mattress. (Adding extra pillows does not work.) ? Do not wear tight clothing around your middle. ? Lose weight if you need to. Losing just 5 to 10 pounds can help. Healthy Bowel Habits 1. Eat all of your meals (breakfast, lunch, and dinner) at a predictable time each day. The bowel functions best when food is introduced at the same regular intervals. 2. Eat foods in similar amounts. The bowel functions best when food is in similar quantity. The size of different meals taken through the day may vary, but the amount of food eaten at a given meal (breakfast, lunch, or dinner) should be about the same quantity from day to day. 3. Breakfast is the most important meal involved in bowel stimulation. Make sure you eat breakfast every day. 4. Eat a high fiber diet that includes both soluble and insoluble fiber. 5. Keep caffeine to a minimum. Caffeine is a diuretic drawing fluid from your colon and leaving your stools hard. 6. Drink plenty of decaffeinated fluids. Ideally a person should drink 64 ounces a day or 8 glassesof water, especially if you are eating a fiber-rich diet. 7. Exercise daily. Exercise helps things move through the gut. Bowel function is helped most when exercise is at a consistent daily time. Bowel Movement Technique Find your best time of day to have a bowel movement. Usually the best time of day for a bowel movement will be a half hour to an hour after breakfast. For some people a half hour to an hour after lunch will work better. These times are best because the body uses the gastro-colic reflex, a stimulation of bowel motion that occurs with eating, to help produce a bowel movement. Make sure that you arenot rushed and have convenient access to a bathroom at this time. ??? Sit on toilet and lean forward, resting forearms on thighs. Lift heels or place feet on stool. ??? Alternate position-may try leaning forward and grasping ankles. ??? Relax rectum, feeling it slightly bulge outward. ??? Keeping lips, jaw and mouth open will facilitate relaxation of the pelvic floor during your bowel movement. ??? Breathe in through nose and exhale through mouth or perform gentle hissing through the teeth. Gently direct the air down and back to the rectum, keeping your abdomen firm. ??? When finished -contract pelvic floor muscles to restore normal pelvic floor tone. Repeat 3-4 times. If still unsuccessful, contract the pelvic floor and get off the toilet. Avoid straining. Source: https://medicine.[facility]/sites/default/files/content/downloads/pwdtwcz-spldz-o abits.pdf [place] Bowel Control Program (10/2010) You can try this Recipe for Bowel Regularity Mix together: 1 cup applesauce 1 cup oat bran or unprocessed wheat bran 1 cup of prune juice Begin with 1-2 tablespoons each evening mixed with or followed by on 6-8 oz cup of water or juice. This should help to soften and regulate your bowel movements within 2 weeks. If no change occurs, slowly increase serving to 3-4 tablespoons. This may be stored in your refrigerator or freezer. 1 to 2 tablespoon servings may be frozen in sectioned ice cube trays or in foam plastic egg cartons and thawed as needed. Follow-up in: 3 months The risks, benefits and alternatives were discussed with the patient who understands and agrees with above. I spent 60 minutes face to face with the patient. Greater than 30 minutes were spent on counseling and discussion as of the above during this telemedicine visit. The patient was located in [place] att time of their visit. Vanesa Hackett MD 05/20/20 Vanesa Hackett MD Tooth Cutter Contact [employer] geneticist Section of Gastroenterology and Hepatology [email or web address] ([email or web address]) documented in this encounter Plan of Treatment Not on file documented as of this encounter Visit Diagnoses Diagnosis Refractory nausea and vomiting Nausea with vomiting Heartburn Chronic constipation Unspecified constipation Proctalgia fugax Anal spasm documented in this encounter Care Teams Clinical Informaticist Relationship Specialty Start Date End Date Arcelia Roa APRN [address] [place] [address] PCP - General Family Medicine 03/31/20 07/06/22 documented as of this encounter
--- OUTSIDE RECORDS SUMMARY | 2024-06-29 17:21 | XMS_ITS | Encounter Summary ---
[place] [address] Care Team Providers Care Percolator Operator Name Role Phone Arcelia Roa APRN Primary Care Provider [phone] Encounter Details Date Type Department Care Team (Late st Contact Info) Description 09/02/2020 Telephone [place] [address] Kesha Steiner Social History Tobacco Use Types Packs/Day Years Used Date Smoking Tobacco: Never Assessed Sex and Gender Information Value Date Recorded Sex Assigned at Not on file Gender Identity Not on file Sexual Orientation Not on file documented as of this encounter Plan of Treatment Not on file documented as of this encounter Visit Diagnoses Not on filedocumented in this encounter Care Teams Percolator Operator Relationship Specialty Start Date End Date Arcelia Roa APRN [address] [place] [address] PCP - General Family Medicine 03/31/20 07/06/22 documented as of this encounter
--- OUTSIDE RECORDS SUMMARY | 2024-06-29 17:21 | XMS_ITS | Encounter Summary ---
[place] [address] Care Team Providers Care Bread Oven Operator Name Role Phone Arcelia Roa APRN Primary Care Provider Reason for Referral * Consultation (Urgent) - Closed Specialty Diagnoses / Procedures Referred By Contac t Referred To Contact Orthopaedics Diagnoses Right foot pain RIGHT FOOT PAIN Gustavo Swann MD [address] [facility] [place] [address] [facility] [address] [place] [phone] Referral ID Status Reason Start Date Expiration Date V isits Requested Visits Authorized [id number] Closed Consult, Test & Treat PCP Updated and/or Approved 04/11/2022 04/11/2023 6 6 Encounter Details Date Type Department Care Team (Late st Contact Info) Description 04/11/2022 Transcribe Orders eDH Incoming Referrals [phone] Gustavo Swann MD [address] [facility] [place] [address] Right foot pain Social History Tobacco Use Types Packs/Day Years Used Date Smoking Tobacco: Never Assessed Sex and Gender Information Value Date Recorded Sex Assigned at Not on file Gender Identity Not on file Sexual Orientation Not on file documented as of this encounter Plan of Treatment Scheduled Referrals Name Type Priority Associated Diagnoses Order Schedule Referral to Orthopaedics Outpatient Referral Routine Right foot pain Ordered: 04/11/2022 documented as of this encounter Visit Diagnoses Diagnosis Right foot pain Pain in limb documented in this encounter Care Teams Bread Oven Operator Relationship Specialty Start Date End Date Arcelia Roa APRN [address] [place] [address] PCP - General Family Medicine 03/31/20 07/06/22 documented as of this encounter
--- OUTSIDE RECORDS SUMMARY | 2024-06-29 17:21 | XMS_ITS | Encounter Summary ---
Author Organization [facility] [place] [address] Care Team Providers Care Hot Worker Name Role Phone rAcelia Roa APRN Primary Care Provider Reason for Visit * Reason Comments Right Foot Pain * Consultation (Urgent) - Closed Specialty Diagnoses / Procedures Referred By Contheber t Referred To Contact Orthopaedics Diagnoses Right foot pain RIGHT FOOT PAIN Gustavo Swann MD [address] [place] [address] [facility] [address] [place] [id number] Referral ID Status Reason Start Date Expiration Date V isits Requested Visits Authorized [id number] Closed Consult, Test & Treat PCP Updated and/or Approved 04/11/2022 04/11/2023 6 6 Encounter Details Date Type Department Care Team (Late st Contact Info) Description 05/22/2022 3:00 PM EDT [place] [address] Azeb Lopez APRN [facility] [place] [address] 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, subsequent encounter (Primary Dx) Social History Tobacco Use Types Packs/Day Years Used Date Smoking Tobacco: Never Smokeless Tobacco: Never Alcohol Use Standard Drinks/Week Comments Not Currently 0 (1 standard drink = 0.6 oz pur e alcohol) Sex and Gender Information Value Date Recorded Sex Assigned at Not on file Gender Identity Not on file Sexual Orientation Not on file documented as of this encounter Last Filed Vital Signs Vital Sign Reading Time Taken Comments Blood Pressure 119/66 05/22/2022 3:03 PM EDT Pulse 108 05/22/2022 3:03 PM EDT Temperature - - Respiratory Rate - - Oxygen Saturation - - Inhaled Oxygen Concentration - - Weight 111.1 kg (245 lb) 05/22/2022 3:03 PM EDT Height 175.3 cm (5' 9) 05/22/2022 3:03 PM EDT Body Mass Index 36.18 05/22/2022 3:03 PM EDT documented in this encounter Progress Notes * Azeb Lopez, WOUND CARE PHYSICIAN - 05/22/2022 3:00 PM EDT PATIENT NAME: Kaden Carcamo AGE: 37 y.o. MR#: [id number] DATE OF VISIT: 05/22/2022 DATE OF INJURY/ONSET: Chronic This 37 y.o. patient is seen in consultation at the request of Gustavo Grace In order to facilitate the coordination of this patient's care, a copy of this note will be sent to Gustavo Grace STAFF: Dr. Foster CHIEF COMPLAINT: right lateral foot pain HISTORY OF PRESENT ILLNESS Ms. Carcamo a 37 y.o. year old female comes into clinic today for above. SHIREEN: 18 years ago inverted foot with pain and swelling. She does admit to chronic instability about the right ankle. Diagnosed with a base of the 5th metatarsal fracture. She did ok over the years yet does admit to ongoing pain at the base of the 5th pain. Plain radiographs by an outside provider reveals a probable non-union base of the 5th metatarsal. Pain is at the base of the 5th metatarsal. Painquality/character: Sharp and intermittent. Pain severity: Mild to moderate. Eversion motions, pain at the fracture site: aggravating factors. Alleviating factors: Relative rest, avoidance of painful a ctivity. No other previous foot fracture, dislocation, surgery or infection. No assistive devices. No recent cast/fracture boot. No requested RTW forms. No requested disability forms. 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 ROS: Denies fever, chills, nausea, vomiting, vision change, shortness of breath, chest pain, visionchanges, headaches, bowel or bladder problem, ear, nose, sinus problem, neuro or psychiatric, or endocrine disorder not addressed above. There is no history of bleeding disorders. No DVT or PE history. No sleep apnea or CPAP use. There are no reported problems with anesthesia. PHYSICAL EXAM: Vitals: 05/22/22 1503 BP: 119/66 Pulse: (!) 108 Weight: 111.1 kg (245 lb) Height: 175.3 cm (5' 9) Body mass index is 36.18 kg/m??. Ms. Carcamo a 37 y.o. is alert and oriented. She appears in no acute discomfort and is resting comfortably in a chair in the exam room. Gait: Non-antalgic. Positional changes are brisk. Assistive Devices: none Shoe wear: Soft sneakers with little mid-sole stability Cast boot: none Inspection: No gross deformity Palpation: + TTP at the base of the 5th metatarsal ROM: Dorsiflexion: 20 degrees Plantarflexion: 40 degrees Inversion: Equal and symmetric to the bilateral side Eversion: Equal and symmetric to the bilateral side Strength: 5/5 in all planes of motion Orthopaedic tests: Mild instability with a/p drawer and inversion stress Neurovascular: Foot is sensate and well perfused, DP and PT 2+ to palpation. Sensation intact to 1st webspace, medial and lateral sole and dorsum. RADIOLOGICAL STUDIES: Right foot x-ray reviewed image by image in the office today reveals a well ossified right foot base of the 5th met fracture probable non-union ASSESSMENT: 37 year old Female with chronic foot pain. 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 PLAN: Ms. Carcamo and I discussed her radiologic findings and physical exam findings. Treatment options and risks/benefits discussed from least to most invasive. Patient understands options. Given the patients findings on physical examination and radiologic studies it seems appropriate to schedule and refer the patient for the followin) At this time, Kaden was hoping for some sort of in office intervention for her right foot pain. 2) I reviewed that the next step that we would recommend is a CT scan to confirm non-union. The patient indicates understanding of these issues and agrees with the plan. I have already ordered this as a future order in the computer. 3) Given duration of symptoms, I do not think that a bone stimulator would be a worthwhile endeavorat this time. 4) recommend stiff soled shoes. OTC APAP or NSAID's prn for pain. CT ordered closer to home. I have already ordered this as a future order in the computer. Once we have Both the images and final radiology report. I will call her with the results and discuss treatment options further. Pt agrees, questions solicited/answered, will return as scheduled and as needed for concerns or questions. Pt understands they may also call us prn for above. 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
--- OUTSIDE RECORDS SUMMARY | 2024-06-29 17:21 | XMS_ITS | Encounter Summary ---
Author Organization [facility] [place] [address] Care Team Providers Care Child'S Nurse Name Role Phone Gopal Morillo DNP Primary Care Provider [phone] Reason for Referral * Consultation (Priority 2) - Closed Specialty Diagnoses / Procedures Referred By Contheber t Referred To Contact Dermatology Diagnoses Melanocytic nevus, unspecified location Gopal Morillo DNP [address] [place] [address] [facility] [address] [place] [address] Referral ID Status Reason Start Date Expiration Date V isits Requested Visits Authorized [id number] Closed Consult, Test & Treat PCP Updated and/or Approved 04/12/2023 04/11/2024 6 6 Encounter Details Date Type Department Care Team (Late st Contact Info) Description 04/12/2023 Transcribe Orders eDH Incoming Referrals [phone] Gopal Morillo DNP [address] [place], [place] [phone] Melanocytic nevus, unspecified location Social History Tobacco Use Types Packs/Day Years [...] Scheduled Referrals Name Type Priority Associated Diagnoses Orde r Schedule Referral to Dermatology Outpatient Referral Routine Melanocytic nevus, unspecified location Ordered: 04/12/2023 documented as of this encounter Visit Diagnoses Diagnosis Melanocytic nevus, unspecified location documented in this encounter Care Teams Child'S Nurse Relationship Specialty Start Date End Date Gopal Morillo DNP [address] [place] [address] [place] [address] PCP - General Family Medicine 04/12/23 documented as of this encounter
--- OUTSIDE RECORDS SUMMARY | 2024-06-29 17:21 | XMS_ITS | Clinical Summary ---
Author Organization [facility] Address [address] [place] [address] Care Team Providers Care Mat Machine Operator Name Role Phone Gopal Maldonado DNP Primary Care Provider [phone] Encounters Date Type Department Care Team Description 06/25/2024 9:05 EDT Phlebotomy Only [facility] - Outpatient Phlebotomy Drawing [address] [place] [address] [facility] Screening-pulmonary TB; Immunity status testing 06/25/2024 Orders Only [facility] [address] [place] [address] Tiesha Martinez RN Screening-pulmonary TB (Primary Dx); Immunity status testing from Last 3 Months Social History Tobacco Use Types Packs/Day Years Used Date Smoking Tobacco: Never Assessed Sex and Gender Information Value Date Recorded Sex Assigned at Not on file Gender Identity Female 06/25/2024 9:06 EDT Sexual Orientation Not on file Plan of Treatment Health Maintenance Due Date Last Done Comments Hepatitis B Vaccine (1 of 3 - 19+ 3-dose series) 01/25 COVID-19 Vaccine ( season) 2024 Hepatitis C Screen Completed 04/20/2022 Procedures Procedure Name Priority Date/Time Associated Diagnosis Comments QUANTIFERON INTERPRETATION (PERFORMABLE) Today 06/25/2024 9:17 EDT Screening-pulmonar y TB QUANTIFERON MITOGEN (PERFORMABLE) Routine 06/25/2024 9:17 EDT Screening-pulmonar y TB QUANTIFERON TB2 (PERFORMABLE) Routine 06/25/2024 9:17 EDT Screening-pulmonar y TB QUANTIFERON TB1 (PERFORMABLE) Routine 06/25/2024 9:17 EDT Screening-pulmonar y TB QUANTIFERON NIL (PERFORMABLE) Routine 06/25/2024 9:17 EDT Screening-pulmonar y TB HEPATITIS B SURFACE ANTIBODY Routine 06/25/2024 9:17 EDT Immunity status testing VARICELLA IGG ANTIBODY Routine 9:17 EDT Immunity status testing RUBELLA IGG ANTIBODY Routine 06/25/2024 9:17 EDT Immunity status testing MUMPS ANTIBODY IGG Routine 06/25/2024 9: 17 EDT Immunity status testing MEASLES IGG AB Routine 06/25/2024 9:17 EDT Immunity status testing QUANTIFERON TB GOLD PLUS Routine 06/25/2024 9:17 EDT Screening-pulmonar y TB HEPATITIS C AB W REFLEX TO HCV RNA BY PCR Routine 04/20/2022 10:55 EDT from Last 3 Months or Most Recently Relevant to Health Maintenance Results * QUANTIFERON MITOGEN (PERFORMABLE) (06/25/2024 9:17 EDT) Blood VENOUS BLOOD / Unknown Venipuncture / Unknown 06/25/2024 9:17 EDT 06/25/2024 9:27 EDT Love Huerta MD IMMUNOLOGY AND SEROL OGY ORDERABLES [facility] [address] [place] [address] * QUANTIFERON TB2 (PERFORMABLE) (06/25/2024 9:17 EDT) Blood VENOUS BLOOD / Unknown Venipuncture / Unknown 06/25/2024 9:17 EDT 06/25/2024 9:27 EDT Love Huerta MD IMMUNOLOGY AND SEROL OGY ORDERABLES Performing Organization Address City/[facility] Co de Phone Number [facility] [address] [place] [address] * QUANTIFERON TB1 (PERFORMABLE) (06/25/2024 9:17 EDT) Blood VENOUS BLOOD / Unknown Venipuncture / Unknown 06/25/2024 9:17 EDT 06/25/2024 9:27 EDT Love Huerta MD IMMUNOLOGY AND SEROL OGY ORDERABLES Performing Organization Address [facility] Co de Phone Number [facility] [address] [place] [id number] * QUANTIFERON NIL (PERFORMABLE) (06/25/2024 9:17 EDT) Blood VENOUS BLOOD / Unknown Venipuncture / Unknown 06/25/2024 9:17 EDT 06/25/2024 9:27 EDT Love Huerta MD IMMUNOLOGY AND SEROL OGY ORDERABLES Performing Organization Address [facility] Co de Phone Number [facility] [address] [place] [address] * QUANTIFERON INTERPRETATION (PERFORMABLE) (06/25/2024 9:17 EDT) [facility] Quantiferon Interpretation Negative Negative 06/29/2024 14:49 EDT [facility] Comment:No interferon-gamma response to M. tuberculosis antigens was detected. ??Infection with M. tuberculosis is unlikely. A single negative result does not exclude infection with M. tuberculosis. ??In patients at high risk for M. tuberculosis infection, a second test should be considered. TB1 Ag minus Nil 0.01 IU/ml 06/29/20 24 14:49 EDT [facility] TB2 Ag minus Nil 0.00 IU/mL 06/29/20 14:49 EDT [facility] Blood VENOUS BLOOD / Unknown Venipuncture / Unknown 06/25/2024 9:17 EDT 06/29/2024 13:42 EDT Love Huerta MD IMMUNOLOGY AND SEROL OGY ORDERABLES [facility] [address] [place] [address] * MEASLES IGG AB (06/25/2024 9:17 EDT) Measles IgG Ab Equivocal See Note 06/26/2024 21:49 EDT [facility] Comment:Confirmation testing has been added by reflex. Blood VENOUS BLOOD / Unknown Venipuncture / Unknown 06/25/2024 9:17 EDT 06/25/2024 9:27 EDT Love Huerta MD IMMUNOLOGY AND SEROL OGY ORDERABLES Performing Organization Address [facility] Co de Phone Number [facility] [address] [place] [address] * RUBELLA IGG ANTIBODY (06/25/2024 9:17 EDT) Rubella IgG Ab Positive See Note 06/25/2024 19:08 EDT [facility] Comment:The presence of Rube lla IgG suggests immunity against Rubella. Blood VENOUS BLOOD / Unknown Venipuncture / Unknown 06/25/2024 9:17 EDT 06/25/2024 9:27 EDT Love Huerta MD CHEMISTRY & BLOOD GA S ORDERABLES Performing Organization Address [facility]/ZIP Co de Phone Number [facility] [address] [place] [address] * HEPATITIS B SURFACE ANTIBODY (06/25/2024 9:17 EDT) Hep B Surface Ab, Quantitative 14.3 See Note mIU/mL 06/25/2024 10:39 EDT [facility] Comment: Clinical Interpretation of Immune [...] BLOOD GA S ORDERABLES Performing Organization Address [facility] Co de Phone Number [facility] [address] [place] [address] * VARICELLA IGG ANTIBODY (06/25/2024 9:17 EDT) Varicella IgG Ab Positive See Note 06/26/2024 21:49 EDT [facility] Blood VENOUS BLOOD / Unknown Venipuncture / Unknown 06/25/2024 9:17 EDT 06/25/2024 9:27 EDT Love Huerta MD IMMUNOLOGY AND SEROL OGY ORDERABLES Performing Organization Address [facility]/ZIP Co de Phone Number [facility] [address] [place] [address] * MUMPS ANTIBODY IGG (06/25/2024 9:17 EDT) Mumps Antibody IgG Positive See Note 06/26/2024 21:49 EDT [facility] Comment:Presence of detectab le mumps virus IgG antibodies. Blood VENOUS BLOOD / Unknown Venipuncture / Unknown 06/25/2024 9:17 EDT 06/25/2024 9:27 EDT Love Huerta MD IMMUNOLOGY AND SEROL VIRGIL ORDERABLES [facility] [address] [place] [address] * HEPATITIS C AB W REFLEX TO HCV RNA BY PCR (04/20/2022 10:55 EDT) Hep C Antibody Negative Negative 04/23/2022 9:35 EDT [facility] Blood VENOUS BLOOD / Unknown 04/20/2022 10:55 EDT 04/20/2022 17:11 EDT Provider Outr Resulting Lab CHEMISTRY & BLOOD GAS ORDERABLES [facility] [address] [place] [address] from Last 3 Months or Most Recently Relevant to Health Maintenance Care Teams Mat Machine Operator Relationship Specialty Start Date End Date Gopal Maldonado, [facility] [employer] [place] [address] PCP - General Family Medicine - Primary Care 06/25/24
--- OUTSIDE RECORDS SUMMARY | 2024-06-29 17:21 | XMS_ITS | Encounter Summary ---
Author Organization [facility] [place] [address] Care Team Providers Care Spa Experience Coordinator Name Role Phone Arcelia Roa APRN Primary Care Provider [phone] Encounter Details Date Type Department Care Team (Late st Contact Info) Description 04/23/2022 9:35 PM EDT Ancillary Procedure Radiology Library at [facility] [place] [id number] Azeb Lopez APRN [facility] [place] [address] Social History Tobacco Use Types Packs/Day Years [...] FILM LIBRARY STORAGE ONLY DX FOOT Routine 04/23/2022 9:34 PM EDT documented in this encounter Results * Film Library- Storage Only DX Foot (04/23/2022 9:34 PM EDT) Narrative RAD - 04/23/2022 9:34 PM EDT This exam is auto-finalizing. It's purpose is for storage only. Azeb Lopez APRN IMG FILM LIBRARY OR DERABLES [place], [place] documented in this encounter Visit Diagnoses Not on filedocumented in this encounter Care Teams Spa Experience Coordinator Relationship Specialty Start Date End Date Arcelia Roa APRN [address] [place] [address] PCP - General Family Medicine 03/31/20 07/06/22 documented as of this encounter
--- OUTSIDE RECORDS SUMMARY | 2024-06-29 17:21 | XMS_ITS | Encounter Summary ---
Author Organization [facility] Address [facility] [place] [address] Care Team Providers Care Supervisor Mattress And Boxsprings Name Role Phone Gopal Morillo DNP Primary Care Provider [phone] Encounter Details Date Type Department Care Team (Late st Contact Info) Description 07/27/2023 Telephone Dermatology at [facility] [address] [place] [address] Yared Ness MD [facility] [address] [place] [address] Social History Tobacco Use Types Packs/Day Years Used Date Smoking Tobacco: Never Smokeless Tobacco: Never Alcohol Use Standard Drinks/Week Comments Not Currently 0 (1 standard drink = 0.6 oz pur e alcohol) Sex and Gender Information Value Date Recorded Sex Assigned at Not on file Gender Identity Not on file Sexual Orientation Not on file documented as of this encounter Miscellaneous Notes * Telephone Encounter - Rebecca Sandhu - 07/27/2023 4:09 PM EDT Left message with [phone] to call to schedule based on referral. Sent letter. documented in this encounter Plan of Treatment Not on file documented as of this encounter Visit Diagnoses Not on filedocumented in this encounter Care Teams Supervisor Mattress And Boxsprings Relationship Specialty Start Date End Date Gopal Morillo DNP [address] [place] [id number] PCP - General Family Medicine 04/12/23 documented as of this encounter
--- OUTSIDE RECORDS SUMMARY | 2024-06-29 17:21 | XMS_ITS | Encounter Summary ---
Author Organization [facility] Address [address] [place] [address] Care Team Providers Care General Manager Farm Name Role Phone Marcus Yisel Gopal Jerome BROTHERS Primary Care Provider [phone] Encounter Details Date Type Department Care Team (Late st Contact Info) Description 06/25/2024 Orders Only [facility] [address] [place] [address] Tiesha Martinez RN Screening-pulmonary TB (Primary Dx); Immunity status testing Social History Tobacco Use Types Packs/Day Years Used Date Smoking Tobacco: Never Assessed Sex and Gender Information Value Date Recorded Sex Assigned at Not on file Gender Identity Female 06/25/2024 9:06 EDT Sexual Orientation Not on file documented as of this encounter Plan of Treatment Not on file documented as of this encounter Results * HEPATITIS B SURFACE ANTIBODY (06/25/2024 9:17 EDT) Hep B Surface Ab, Quantitative 14.3 See Note mIU/mL 06/25/2024 10:[address] [facility] Comment: Clinical Interpretation of [...] BLOOD GA S ORDERABLES Performing Organization Address [facility]/ZIP Co de Phone Number [facility] [address] [place] [address] * VARICELLA IGG ANTIBODY (06/25/2024 9:17 EDT) Varicella IgG Ab Positive See Note 06/26/2024 21:[address] [facility] Blood VENOUS BLOOD / Unknown Venipuncture / Unknown 06/25/2024 9:17 EDT 06/25/2024 9:27 EDT Love Huerta MD IMMUNOLOGY AND SEROL OGY ORDERABLES Performing Organization Address [facility] Co de Phone Number [facility] [address] [place] [address] * RUBELLA IGG ANTIBODY (06/25/2024 9:17 EDT) Rubella IgG Ab Positive See Note 06/25/2024 19:[address] [facility] Comment:The presence of Rube lla IgG suggests immunity against Rubella. Blood VENOUS BLOOD / Unknown Venipuncture / Unknown 06/25/2024 9:17 EDT 06/25/2024 9:27 EDT Love Huerta MD CHEMISTRY & BLOOD GA S ORDERABLES Performing Organization Address [facility]/ZIP Co de Phone Number [facility] [address] [place] [address] * MUMPS ANTIBODY IGG (06/25/2024 9:17 EDT) Mumps Antibody IgG Positive See Note 06/26/2024 21:[address] [facility] Comment:Presence of detectab le mumps virus IgG antibodies. Blood VENOUS BLOOD / Unknown Venipuncture / Unknown 06/25/2024 9:17 EDT 06/25/2024 9:27 EDT Love Huerta MD IMMUNOLOGY AND SEROL OGY ORDERABLES Performing Organization Address City/[facility]/ZIP Co de Phone Number [facility] [address] [place] [address] * MEASLES IGG AB (06/25/2024 9:17 EDT) Measles IgG Ab Equivocal See Note 06/26/2024 21:[address] [facility] Comment:Confirmation testing has been added by reflex. Blood VENOUS BLOOD / Unknown Venipuncture / Unknown 06/25/2024 9:17 EDT 06/25/2024 9:27 EDT Love Huerta MD IMMUNOLOGY AND SEROL OGCyndie ORDERABLES Performing Organization Address City/[facility] Co de Phone Number [facility] [address] [place] [address] documented in this encounter Visit Diagnoses Diagnosis Screening-pulmonary TB- Primary Screening examination for pulmonary tuberculosis Immunity status testing Antibody response examination documented in this encounter Care Teams General Manager Farm Relationship Specialty Start Date End Date Gopal Maldonado, [facility] [place] [address] PCP - General Family Medicine - Primary Care 06/25/24 documented as of this encounter
--- OUTSIDE RECORDS SUMMARY | 2024-06-29 17:21 | XMS_ITS | Encounter Summary ---
Author Organization [facility] Address [address] [place] [address] Care Team Providers Care Lamp Mechanic Name Role Phone Unknown, Provider Primary Care Provider [phone] Gopal Maldonado DNP Primary Care Provider [phone] Encounter Details Date Type Department Care Team (Late st Contact Info) Description 04/20/2022 Lab Requisition [facility] Pathology & Laboratory Medicine - [address] [address] Gustavo Swann MD [address] [place] [phone] Encounter for other general examination Social History Tobacco Use Types Packs/Day Years Used Date Smoking Tobacco: Never Assessed Sex and Gender Information Value Date Recorded Sex Assigned at Not on file Gender Identity Female 06/25/2024 9:06 EDT Sexual Orientation Not on file documented as of this encounter Plan of Treatment Not on file documented as of this encounter Procedures Procedure Name Priority Date/Time Associated Diagnosis Comments HOLD SST Today 04/20/2022 10:55 EDT Encounter for other general examination documented in this encounter Results * HOLD SST (04/20/2022 10:55 EDT) Hold Hold 04/20/2022 18:15 EDT [facility] Blood VENOUS BLOOD / Unknown 04/20/2022 10:55 EDT 04/20/2022 17:13 EDT Gustavo Swann MD LAB INFO SERVI CE AND SUPPORT & PHONE RESULT [facility] [address] [place] [address] documented in this encounter Visit Diagnoses Diagnosis Encounter for other general examination documented in this encounter Care Teams Lamp Mechanic Relationship Specialty Start Date End Date Unknown, Provider, PCP - General 02/20/16 06/24/24 Gopal Maldonado, [facility] [place] [address] PCP - General Family Medicine - Primary Care 06/25/24 documented as of this encounter
--- OUTSIDE RECORDS SUMMARY | 2024-06-29 17:21 | XMS_ITS | Clinical Summary ---
[facility] Address [facility] [place] [address] Care Team Providers Care Geomorphologist Name Role Phone Yisel, Gopal Khankraig DENEEN Primary Care Provider [phone] Allergies Active Allergy Reactions Criticality Noted Date Comments Lactose 07/01/2020 Medications Medication Sig Dispensed Refills Start Date End Date Status multivitamin (THERAGRAN) Tablet Take 1 tablet by mouth daily. Active Active Problems Problem Noted Date Diagnosed Date H/O: section 05/24/2022 Foot fracture, right, with n onunion (base of the 5th + remote injury) 05/24/2022 Social History Tobacco Use Types Packs/Day Years Used Date Smoking Tobacco: Never Smokeless Tobacco: Never Alcohol Use Standard Drinks/Week Comments Not Currently 0 (1 standard drink = 0.6 oz pur e alcohol) Sex and Gender Information Value Date Recorded Sex Assigned at Not on file Gender Identity Not on file Sexual Orientation Not on file Last Filed Vital Signs Vital Sign Reading [...] Mass Index 36.18 05/22/2022 3:03 PM EDT Plan of Treatment Health Maintenance Due Date Last Done Comments HIV screen 2005 Hepatitis C Screening 2005 Lipid Screening 2005 Hepatitis B vaccine (0-59 yrs) (1) 2006 Tdap adult 2006 Tetanus vaccine 2006 HPV test 2017 PAP Smear 2017 Covid-19 Vaccine ( season) 2024 Influenza (Flu) vaccine (1 o f 1 - Influenza standard series) 06/14/2024 Care Teams Geomorphologist Relationship Specialty Start Date End Date Gopal Morillo DNP [address] [place] [address] [place] [address] PCP - General Family Medicine 04/12/23
--- OUTSIDE RECORDS SUMMARY | 2024-06-29 17:21 | XMS_ITS | Encounter Summary ---
Author Organization [facility] Address [address] [place] [address] Care Team Providers Care Enterprise Data Architect Name Role Phone Unknown, Provider Primary Care Provider [phone] Gopal Maldonado DNP Primary Care Provider [phone] Encounter Details Date Type Department Care Team (Late st Contact Info) Description 12/12/2023 Lab Requisition [facility] Pathology & Laboratory Medicine - [address] [address] Outr Resulting Lab, Provider Social History Tobacco Use Types Packs/Day Years Used Date Smoking Tobacco: Never Assessed Sex and Gender Information Value Date Recorded Sex Assigned at Not on file Gender Identity Female 06/25/2024 9:06 EDT Sexual Orientation Not on file documented as of this encounter Plan of Treatment Not on file documented as of this encounter Procedures Procedure Name Priority Date/Time Associated Diagnosis Comments CHLAMYDIA/N. GONORRHOEAE AMPLIFIED NUCLEIC ACID Routine 12/12/2023 9:45 EST documented in this encounter Results * CHLAMYDIA/N. GONORRHOEAE AMPLIFIED RNA (12/12/2023 9:45 EST) Neisseria gonorrhoeae Result Negative Negative 12/13/2023 14:[address] [facility] Chlamydia trachomatis Result Negative Negative 12/13/2023 14:[address] [facility] Swab CERVIX UTERI STRUCTURE / Unknown 12/12/2023 9:45 EST 12/12/2023 16:50 EST Provider Outr Resulting Lab MICROBIOLOGY - GENERAL ORDERABLES [facility] [address] [place], [place] [address] documented in this encounter Visit Diagnoses Not on filedocumented in this encounter Care Teams Enterprise Data Architect Relationship Specialty Start Date End Date Unknown, Provider, PCP - General 02/20/16 06/24/24 Gopal Maldonado, DNP [address] [place] [address] [place] [phone] PCP - General Family Medicine - Primary Care 06/25/24 documented as of this encounter
--- OUTSIDE RECORDS SUMMARY | 2024-06-29 17:21 | XMS_ITS | Encounter Summary ---
[place] [address] Care Team Providers Care Tufting Machine Operator Name Role Phone Arcelia Roa APRN Primary Care Provider Encounter Details Date Type Department Care Team (Late st Contact Info) Description 08/29/2020 Tele[place] [address] Kesha Steiner Social History Tobacco Use Types [...] on filedocumented in this encounter Care Teams Tufting Machine Operator Relationship Specialty Start Date End Date Arcelia Roa APRN [address] [place] [address] PCP - General Family Medicine 03/31/20 07/06/22 documented as of this encounter
--- OUTSIDE RECORDS SUMMARY | 2024-06-29 17:21 | XMS_ITS | Referral Summary ---
Author Organization [facility] Address [address] [place] [address] Care Team Providers Care Cone Operator Name Role Phone Gopal Maldonado DNP Primary Care Provider [phone] Encounters Date Type Department Care Team Description 06/25/2024 9:05 EDT Phlebotomy Only [facility] - Outpatient Phlebotomy Drawing [address] [place] [address] [facility]-pulmonary [facility]; Immunity status testing 06/25/2024 Orders Only [facility] [address] [place] [address] Tiesha Martinez RN Screening-pulmonary TB (Primary Dx); Immunity status testing from Last 3 Months Social History Tobacco Use Types Packs/Day Years Used Date Smoking Tobacco: Never Assessed Sex and Gender Information Value Date Recorded Sex Assigned at Not on file Gender Identity Female 06/25/2024 9:06 EDT Sexual Orientation Not on file Plan of Treatment Not on file Procedures Procedure Name Priority Date/Time Associated Diagnosis [...] AND SEROL OGY ORDERABLES Performing Organization Address [facility] Co de Phone Number [facility] [address] [place] [phone] * QUANTIFERON TB2 (PERFORMABLE) (06/25/2024 9:17 EDT) Blood VENOUS BLOOD / Unknown Venipuncture / Unknown 06/25/2024 9:17 EDT 06/25/2024 9:27 EDT Love Huerta MD IMMUNOLOGY AND SEROL OGY ORDERABLES Performing Organization Address City/[facility]/ZIP Co de Phone Number [facility] [address] [place] [address] * QUANTIFERON TB1 (PERFORMABLE) (06/25/2024 9:17 EDT) Blood VENOUS BLOOD / Unknown Venipuncture / Unknown 06/25/2024 9:17 EDT 06/25/2024 9:27 EDT Love Huerta MD IMMUNOLOGY AND SEROL OGY ORDERABLES Performing Organization Address [facility] Phone Number [facility] [address] [place] [phone] * QUANTIFERON NIL (PERFORMABLE) (06/25/2024 9:17 EDT) Blood VENOUS BLOOD / Unknown Venipuncture / Unknown 06/25/2024 9:17 EDT 06/25/2024 9:27 EDT Love Huerta MD IMMUNOLOGY AND SEROL OGY ORDERABLES Performing Organization Address [facility] Phone Number [facility] [address] [place] [phone] * QUANTIFERON INTERPRETATION (PERFORMABLE) (06/25/2024 9:17 EDT) [facility] Quantiferon Interpretation Negative Negative 06/29/2024 14:49 EDT [facility] Comment:No interferon-gamma response to M. tuberculosis antigens was detected. ??Infection with M. tuberculosis is unlikely. A single negative result does not exclude infection with M. tuberculosis. ??In patients at high risk for M. tuberculosis infection, a second test should be considered. TB1 Ag minus Nil 0.01 IU/ml 06/29/20 14:49 EDT [facility] TB2 Ag minus Nil 0.00 IU/mL 06/29/20 14:49 EDT [facility] Blood VENOUS BLOOD / Unknown Venipuncture / Unknown 06/25/2024 9:17 EDT 06/29/2024 13:42 EDT Love Huerta MD IMMUNOLOGY AND SEROL OGY ORDERABLES Performing Organization Address [facility]/ZIP Co de Phone Number [facility] [address] [place] [address] * MEASLES IGG AB (06/25/2024 9:17 EDT) Measles IgG Ab Equivocal See Note 06/26/2024 21:49 EDT [facility] Comment:Confirmation testing has been added by reflex. Blood VENOUS BLOOD / Unknown Venipuncture / Unknown 06/25/2024 9:17 EDT 06/25/2024 9:27 EDT Love Huerta MD IMMUNOLOGY AND SEROL OGY ORDERABLES Performing Organization Address [facility] Co de Phone Number [facility] [address] [place] [address] * RUBELLA IGG ANTIBODY (06/25/2024 9:17 EDT) Rubella IgG Ab Positive See Note 06/25/2024 19:08 EDT [facility] Comment:The presence of Rube lla IgG suggests immunity against Rubella. Blood VENOUS BLOOD / Unknown Venipuncture / Unknown 06/25/2024 9:17 EDT 06/25/2024 9:27 EDT Love Huerta MD CHEMISTRY & BLOOD GA S ORDERABLES Performing Organization Address [facility] Co de Phone Number [facility] [address] [place] [address] * HEPATITIS B SURFACE ANTIBODY (06/25/2024 9:17 EDT) Hep B Surface Ab, Quantitative 14.3 See Note mIU/mL 06/25/2024 10:39 EDT [facility] Comment: Clinical Interpretation of Immune [...] BLOOD GA S ORDERABLES Performing Organization Address [facility] Co de Phone Number [facility] [address] [place] [address] * VARICELLA IGG ANTIBODY (06/25/2024 9:17 EDT) Varicella IgG Ab Positive See Note 06/26/2024 21:49 EDT [facility] Blood VENOUS BLOOD / Unknown Venipuncture / Unknown 06/25/2024 9:17 EDT 06/25/2024 9:27 EDT Love Huerta MD IMMUNOLOGY AND SEROL OGY ORDERABLES Performing Organization Address [facility] de Phone Number LAB[facility]ATORY SERVICES [address] [place] [address] * MUMPS ANTIBODY IGG (06/25/2024 9:17 EDT) Mumps Antibody IgG Positive See Note 06/26/2024 21:49 EDT [facility] Comment:Presence of detectab le mumps virus IgG antibodies. Blood VENOUS BLOOD / Unknown Venipuncture / Unknown 06/25/2024 9:17 EDT 06/25/2024 9:27 EDT Love Huerta MD IMMUNOLOGY AND SEROL OGY ORDERABLES Performing Organization Address [facility] Co de Phone Number LAB[facility]ORY SERVICES [address] [place] [address] * HEPATITIS C AB W REFLEX TO HCV RNA BY PCR (04/20/2022 10:55 EDT) Hep C Antibody Negative Negative 04/23/2022 9:35 EDT [facility] Blood VENOUS BLOOD / Unknown 04/20/2022 10:55 EDT 04/20/2022 17:11 EDT Provider Outr Resulting Lab CHEMISTRY & BLOOD GAS ORDERABLES [facility] [address] [place] [address] from Last 3 Months or Most Recently Relevant to Health Maintenance Care Teams Cone Operator Relationship Specialty Start Date End Date Gopal Maldonado, [facility] [address] [place] [address] [place] [address] PCP - General Family Medicine - Primary Care 06/25/24
--- OUTSIDE RECORDS SUMMARY | 2024-06-29 17:22 | XMS_ITS | Encounter Summary ---
Author Organization [facility] Address [address] [place] [address] Care Team Providers Care Orthophoto Tech/Draftsman Name Role Phone Unknown, Provider Primary Care Provider [phone] Gopal Maldonado DNP Primary Care Provider [phone] Encounter Details Date Type Department Care Team (Late st Contact Info) Description 11/14/2020 Lab Requisition [facility] Pathology & Laboratory Medicine - [facility] [address] [place] [address] Outr Resulting Lab, Provider Social History Tobacco [...] Procedure Name Priority Date/Time Associated Diagnosis Comments ZZCOVID-19 TEST [facility] PCR Today 11/14/2020 13:56 EST COVID-19 TESTING Routine 11/14/2020 13:5 6 EST documented in this encounter Results * COVID-19 TEST [facility] PCR (11/14/2020 13:56 EST) Swab ENTIRE NASOPHARYNX / Unknown 11/14/2020 13:56 EST 11/14/2020 21:44 EST Provider Outr Resulting Lab MICROBIOLOGY - GENERAL ORDERABLES [facility] [address] [place] [address] * COVID-19 TESTING (11/14/2020 13:56 EST) COVID-19 rt-PCR Result Negative Negative 11/15/2020 1:08 EST [facility] Comment: This test has not been FDA cleared or approved. This test has been authorized by FDA under an EUA for use by authorized laboratories. This test has been authorized only for detection of nucleic acid from 2019-nCoV, not for any other viruses or pathogens. This test is only authorized for the duration of the declaration that circumstances exist justifying the authorization of emergency use of in vitro diagnostic tests for detection and/or diagnosis of 2019-nCoV under section 564(b)(1) of Act, 21 U.S.C ?? 360bbb-3(b) (1), unless the authorization is terminated or revoked sooner. Negative results do not preclude 2019-nCoV infection and should not be used as the sole basis for treatment or other patient management decisions. Negative results must be combined with clinical observations, patient history, and epidemiological information. Performed on the [employer] Fusion instrument Performing Lab [place] [facility] Lab 11/15/2020 1:08 EST [facility] Swab 11/14/2020 13:5 6 EST 11/14/2020 21:44 EST Provider Outr Resulting Lab MICROBIOLOGY - GENERAL ORDERABLES [facility] [address] [place] [address] documented in this encounter Visit Diagnoses Not on filedocumented in this encounter Care Teams Orthophoto Tech/Draftsman Relationship Specialty Start Date End Date Unknown, Provider, PCP - General 02/20/16 06/24/24 Gopal Maldonado, [facility] [place] [address] PCP - General Family Medicine - Primary Care 06/25/24 documented as of this encounter
--- OUTSIDE RECORDS SUMMARY | 2024-06-29 17:22 | XMS_ITS | Encounter Summary ---
Author Organization [facility] Address [address] [place] [address] Care Team Providers Care Partner Cco Name Role Phone Unknown, Provider Primary Care Provider [phone] Encounter Details Date Type Department Care Team (Late st Contact Info) Description 02/25/2017 Results Only [facility] [phone] Ava Ribeiro, [facility] [address] [place] [phone] Social History Tobacco Use Types Packs/Day Years Used Date Smoking Tobacco: Never Assessed Sex and Gender Information Value Date Recorded Sex Assigned at Not on file Gender Identity Female 06/25/2024 9:06 EDT Sexual Orientation Not on file documented as of this encounter Plan of Treatment Not on file documented as of this encounter Procedures Procedure Name Priority Date/Time Associated Diagnosis Comments PAP TEST- RESULT ONLY Routine 02/25/2017 0:00 EDT documented in this encounter Results * PAP TEST- RESULT ONLY (02/25/2017 0:00 EDT) Pathology Report: CYTOPATHOLOGY REPORT Reports generated via electronic interface contain original data; however they are lacking the format of the original report. Caution should be taken when reading/interpreti ng unformatted reports. Name: ? GONZALES CARCAMO ? Accession #: ? [id number] ? : ? 1985 (Age: 32) ??F ?Collect Date: ? 02/25/2017 ? Location: ? [facility] ? Receive Date: ? 02/26/2017 ? Provider: AVA RIBEIRO SIMPLEX OPERATOR Copy to: NORMAN MORENO SIMPLEX OPERATOR-BC ? Final Report SPECIMEN ADEQUACY ? Satisfactory for Evaluation - transformation zone component present GENERAL CATEGORIZATION ? Negative for Intraepithelial Lesion or Malignancy INTERPRETATION ? Fungal organisms present morphologically consistent with Dayna species. Last Menstrual Period: 02/16/2017 Hormonal/Contracep tive status: Intrauterine device: Mirena Specimen/Source: ??Pap Test, Cervix, ThinPrep Imaging System with manual evaluation Document reviewed and electronically signed by: ? Renuka Sorensen, CT(ASCP) ? Report ??Date: 03/06/2017 10:21 HPV with Pap Test ? Date Ordered: ? 03/06/2017 ? Status: ?? Signed Out ?Date Complete: ? 03/08/2017 ? By: ??System Interface ? Date Reported: ? 03/08/2017 ? Interpretation RESULT: Negative for HPV. No E6 or E7 mRNA is detected from HPV types 16,18,31,33,35, 39,45,51,52,56,58, 59,66, and 68 by needle process felt goods supervisor mediated amplification. Comments Document reviewed and electronically signed by: ? System Interface ? Report date: 03/08/2017 By the signature above, the attending physician certifies that he/she has personally conducted a gross and/or microscopic examination of the described specimens and rendered or confirmed the above diagnosis. End of Report [facility] 02/25/2017 02/26/2017 Ava Ribeiro SIMPLEX OPERATOR PATHOLOGY ORDERABLES [facility] [address] [place] [address] documented in this encounter Visit Diagnoses Not on filedocumented in this encounter Care Teams Partner Cco Relationship Specialty Start Date End Date Unknown, Provider, PCP - General 02/20/16 06/24/24 documented as of this encounter
--- OUTSIDE RECORDS SUMMARY | 2024-06-29 17:22 | XMS_ITS | Encounter Summary ---
Author Organization [facility] Address [address] [place] [address] Care Team Providers Care Pharmacy Student Name Role Phone Unknown, Provider Primary Care Provider [phone] Gopal Maldonado DNP Primary Care Provider [phone] Encounter Details Date Type Department Care Team (Late st Contact Info) Description 06/06/2020 Lab Requisition [facility] Pathology & Laboratory Medicine - [address] [address] Outr Resulting Lab, Provider Social History Tobacco [...] Procedure Name Priority Date/Time Associated Diagnosis Comments IGA Routine 06/06/2020 15:00 EDT documented in this encounter Results * IGA (06/06/2020 15:00 EDT) IgA 158 85 - 499 mg/dL 06/07/2020 9:23 EDT [facility] Blood VENOUS BLOOD / Unknown 06/06/2020 15:00 EDT 06/06/2020 21:13 EDT Provider Outr Resulting Lab CHEMISTRY & BLOOD GAS ORDERABLES [facility] [address] [place] [address] documented in this encounter Visit Diagnoses Not on filedocumented in this encounter Care Teams Pharmacy Student Relationship Specialty Start Date End Date Unknown, Provider, PCP - General 02/20/16 06/24/24 Gopal Maldonado, [facility] [address] [place] [address] PCP - General Family Medicine - Primary Care 06/25/24 documented as of this encounter
--- OUTSIDE RECORDS SUMMARY | 2024-06-29 17:22 | XMS_ITS | Encounter Summary ---
Author Organization [facility] Address [address] [place] [address] Care Team Providers Care Motor And Controls Tester Name Role Phone Unknown, Provider Primary Care Provider [phone] Gopal Maldonado DNP Primary Care Provider [phone] Encounter Details Date Type Department Care Team (Late st Contact Info) Description 04/20/2022 Lab Requisition [facility] Pathology & Laboratory Medicine - [address] [address] Outr Resulting Lab, Provider Social History Tobacco [...] Procedure Name Priority Date/Time Associated Diagnosis Comments HEPATITIS C AB W REFLEX TO HCV RNA BY PCR Routine 04/20/2022 10:55 EDT VARICELLA IGG ANTIBODY Routine 04/20/2022 10:55 EDT documented in this encounter Results * HEPATITIS C AB W REFLEX TO HCV RNA BY PCR (04/20/2022 10:55 EDT) Hep C Antibody Negative Negative 04/23/2022 9:35 EDT [facility] Blood VENOUS BLOOD / Unknown 04/20/2022 10:55 EDT 04/20/2022 17:11 EDT Provider Outr Resulting Lab CHEMISTRY & BLOOD GAS ORDERABLES Performing Organization Address City/[facility]/ZIP Co de Phone Number [facility] [address] [place] [address] * VARICELLA IGG ANTIBODY (04/20/2022 10:55 EDT) Varicella IgG Ab Positive See Note 04/23/2022 12:01 EDT [facility] Comment:Presence of detectab le Varicella Zoster virus IgG antibodies. Blood VENOUS BLOOD / Unknown 04/20/2022 10:55 EDT 04/20/2022 17:11 EDT Provider Outr Resulting Lab IMMUNOLOGY A ND SEROLOGY ORDERABLES Performing Organization Address [facility] Co de Phone Number [facility] [address] [place] [address] documented in this encounter Visit Diagnoses Not on filedocumented in this encounter Care Teams Motor And Controls Tester Relationship Specialty Start Date End Date Unknown, Provider, PCP - General 02/20/16 06/24/24 Gopal Maldonado, [place] [address] PCP - General Family Medicine - Primary Care 06/25/24 documented as of this encounter
--- OUTSIDE RECORDS SUMMARY | 2024-06-29 17:22 | XMS_ITS | Encounter Summary ---
Author Organization [facility] Address [address] [place] [address] Care Team Providers Care Paint Technician Name Role Phone Unknown, Provider Primary Care Provider [phone] Gopal Maldonado DNP Primary Care Provider [phone] Encounter Details Date Type Department Care Team (Late st Contact Info) Description 07/01/2020 Lab Requisition [facility] Pathology & Laboratory Medicine - [address] [address] Outr Resulting Lab, Provider Social History Tobacco [...] Comments CHLAMYDIA/N. GONORRHOEAE AMPLIFIED NUCLEIC ACID Routine 07/01/2020 12:00 EDT documented in this encounter Results * CHLAMYDIA/N. GONORRHOEAE AMPLIFIED RNA (07/01/2020 12:00 EDT) Neisseria gonorrhoeae Result Negative Negative 07/04/2020 15:07 EDT [facility] Chlamydia trachomatis Result Negative Negative 07/04/2020 15:07 EDT [facility] Urine URINE / Unknown 07/01/2020 1 2:00 EDT 07/01/2020 21:21 EDT Narrative [facility] - 07/04/2020 15:07 EDT A first catch urine specimen is acceptable for detection of Gonorrhea and Chlamydia, but might detect up to 10% fewer infections when compared with vaginal and endocervical swab samples. Provider Outr Resulting Lab MICROBIOLOGY - GENERAL ORDERABLES [facility] [address] [place] [address] documented in this encounter Visit Diagnoses Not on filedocumented in this encounter Care Teams Paint Technician Relationship Specialty Start Date End Date Unknown, Provider, PCP - General 02/20/16 06/24/24 Gopal Maldonado, [facility] [address] [place] [address] [place] [address] PCP - General Family Medicine - Primary Care 06/25/24 documented as of this encounter
--- OUTSIDE RECORDS SUMMARY | 2024-06-29 17:22 | XMS_ITS | Encounter Summary ---
Author Organization [facility] Address [address] [place] [address] Care Team Providers Care Production Cost Estimator Name Role Phone Unknown, Provider Primary Care Provider [phone] Encounter Details Date Type Department Care Team (Late st Contact Info) Description 02/17/2016 Results Only [facility] [phone] Ava Ribeiro, [facility] [address] [place] [phone] Social History Tobacco Use Types Packs/Day [...] Diagnosis Comments PAP TEST- RESULT ONLY Routine 02/17/2016 0:00 EDT documented in this encounter Results * PAP TEST- RESULT ONLY (02/17/2016 0:00 EDT) Pathology Report: CYTOPATHOLOGY REPORT Reports generated via electronic interface contain original data; however they are lacking the format of the original report. Caution should be taken when reading/interpreti ng unformatted reports. Name: ? GONZALES CARCAMO ? Accession #: ? [id number] : ? 1985 (Age: 31) ??F ?Collect Date: ? 02/17/2016 Location: ? [facility] ? Receive Date: ? 02/20/2016 Provider: ?AVA RIBEIRO COSMETIC SURGEON Copy to: ? Specimen/Source: ?Pap Test, Cervix/Endocervix, ThinPrep Imaging System with manual evaluation Last Menstrual Period: ? Hormonal/Contracep tive Status: ? Intrauterine device: Mirena ? SPECIMEN ADEQUACY ? Satisfactory for Evaluation - transformation zone component present GENERAL CATEGORIZATION ? Negative for Intraepithelial Lesion or Malignancy ? Document reviewed and electronically signed by: ? MERRICK Sharpe(ASCP) ? Report Date: ??03/01/2016 07:40 End of Report [facility] 02/17/2016 02/20/2016 Ava Ribeiro COSMETIC SURGEON PATHOLOGY ORDERABLES [facility] [address] [place] [address] documented in this encounter Visit Diagnoses Not on filedocumented in this encounter Care Teams Production Cost Estimator Relationship Specialty Start Date End Date Unknown, Provider, PCP - General 02/20/16 06/24/24 documented as of this encounter
--- OUTSIDE RECORDS SUMMARY | 2024-06-29 17:22 | XMS_ITS | Encounter Summary ---
Author Organization [facility] Address [address] [place] [address] Care Team Providers Care Kaiako Kohanga Reo Name Role Phone Unknown, Provider Primary Care Provider [phone] Gopal Maldonado DNP Primary Care Provider + [phone] Encounter Details Date Type Department Care Team (Late st Contact Info) Description 07/04/2020 Lab Requisition [facility] Pathology & Laboratory Medicine - [address] [address] Pedro Huerta CNM [address] [address] Encounter for other general examination Social History [...] Name Priority Date/Time Associated Diagnosis Comments PAP TEST Today 07/01/2020 11:15 EDT Encounter for other general examination HPV DNA DETECTION WITH GENOTYPING, PCR Today 07/01/2020 11:15 EDT Encounter for other general examination documented in this encounter Results * HUMAN PAPILLOMAVIRUS (HPV) DETECTION-HIGH RISK TYPES (07/01/2020 11:15 EDT) HPV other High Risk types, PCR Negative Negative 07/11/2020 15:14 EDT [facility] Comment:No E6 or E7 mRNA is detected from HPV types 16,18,31,33,35,39,45,51,52,56,58,59,66, and 68 by mica machine operator mediated amplification. Papanicolaou smear specimen (specimen) CERVIX UTERI STRUCTURE / Unknown 07/01/2020 11:15 EDT 07/08/2020 12:06 EDT Pedro Huerta [facility] MICROBIOLOGY - GENER AL ORDERABLES [facility] [address] [place] [address] * PAP TEST (07/01/2020 11:15 EDT) Specimens A. Cervix and/or Endocervix , ThinPrep Imaging System with Manual Evaluation 07/11/2020 15:15 T [facility] Specimen Adequacy Satisfactory for Evaluation - transformation zone component present 07/11/2020 15:15 [facility] General Categorization Negative for intraepithelial lesion or malignancy 07/11/2020 15:15 T [facility] Attestation . 07/11/2020 15:15 [facility] at 1514 Clinical History See below 07/11/20 20 15:15 [facility] HPV The result for the Human Papillomavirus (HPV) Detection-High Risk Types is Negative. No E6 or E7 mRNA is detected from HPV types 16,18,31,33,35,39 ,45,51,52,56,58,5 9,66, and 68 by mica machine operator mediated amplification.Dorene ting was performed on specimen [id number] and was resulted on 07/11/2020 1507 EDT by MARIO, LAB INSTRUMENT RESULTS IN 07/11/2020 15:15 T [facility] Performing Lab [facility] 07/11/2020 15:15 T [facility] Scanned Images 07/11/2020 15:15 T [facility] Papanicolaou smear specimen (specimen) CERVIX UTERI STRUCTURE / Unknown 07/01/2020 11:15 EDT 07/04/2020 15:11 EDT Pedro Huerta CN PATHOLOGY ORDERABLES [facility] [address] [place] [address] documented in this encounter Visit Diagnoses Diagnosis Encounter for other general examination documented in this encounter Care Teams Kaiako Kohanga Reo Relationship Specialty Start Date End Date Unknown, Provider, PCP - General 02/20/16 06/24/24 Gopal Maldonado, [facility] [address] [place] [address] [address] [facility] [place] [address] PCP - General Family Medicine - Primary Care 06/25/24 documented as of this encounter
--- OUTSIDE RECORDS SUMMARY | 2024-06-29 17:22 | XMS_ITS | Encounter Summary ---
Author Organization [facility] Address [address] [place] [address] Care Team Providers Care Surgical Oncologist Name Role Phone Unknown, Provider Primary Care Provider [phone] Gopal Maldonado DNP Primary Care Provider [phone] Encounter Details Date Type Department Care Team (Late st Contact Info) Description 06/30/2021 Lab Requisition [facility] Pathology & Laboratory Medicine - [facility] [address] [place] [address] Outr Resulting Lab, Provider Social History Tobacco [...] Comments ZZCOVID-19 TEST [facility] PCR Today 06/30/2021 11:00 EDT COVID-19 TESTING Routine 06/30/2021 11:0 0 EDT documented in this encounter Results * COVID-19 TEST [facility] PCR (06/30/2021 11:00 EDT) Swab ENTIRE NASOPHARYNX / Unknown 06/30/2021 11:00 EDT 06/30/2021 21:54 EDT Provider Outr Resulting Lab MICROBIOLOGY - GENERAL ORDERABLES [facility] [address] [place] [address] * COVID-19 TESTING (06/30/2021 11:00 EDT) COVID-19 rt-PCR Result Negative Negative 07/01/2021 1:07 EDT [facility] Comment: This test has [...] history, and epidemiological information. Performed on the [employer] Fusion instrument Performing Lab [place] [facility] Lab 07/01/2021 1:07 EDT [facility] Swab 06/30/2021 11:0 0 EDT 06/30/2021 21:54 EDT Provider Outr Resulting Lab MICROBIOLOGY - GENERAL ORDERABLES [facility] [address] [place] [address] documented in this encounter Visit Diagnoses Not on filedocumented in this encounter Care Teams Surgical Oncologist Relationship Specialty Start Date End Date Unknown, Provider, PCP - General 02/20/16 06/24/24 Gopal Maldonado, [facility] [place] [address] [place] [address] [place] [address] PCP - General Family Medicine - Primary Care 06/25/24 documented as of this encounter
--- OUTSIDE RECORDS SUMMARY | 2024-06-29 17:22 | XMS_ITS | Encounter Summary ---
Author Organization [facility] Address [address] [place] [address] Care Team Providers Care Command And Control Specialist Name Role Phone Unknown, Provider Primary Care Provider [phone] Gopal Maldonado DNP Primary Care Provider [phone] Encounter Details Date Type Department Care Team (Late st Contact Info) Description 11/07/2021 Lab Requisition [facility] Pathology & Laboratory Medicine - [address] [address] Outr Resulting Lab, Provider Social History Tobacco [...] Comments ZZCOVID-19 TEST [facility] PCR Today 11/07/2021 8:30 EST COVID-19 TESTING Routine 11/07/2021 8:30 EST documented in this encounter Results * COVID-19 TEST [facility] PCR (11/07/2021 8:30 EST) Swab 11/07/2021 8:30 EST 11/07/2021 15:48 EST Provider Outr Resulting Lab MICROBIOLOGY - GENERAL ORDERABLES [facility] [address] [place] [address] * COVID-19 TESTING (11/07/2021 8:30 EST) COVID-19 rt-PCR Result Negative Negative 11/07/2021 20:29 EST [facility] Comment: This test has [...] history, and epidemiological information. Performed on the [employer]her Fusion instrument Performing Lab [place] [facility] Lab 11/07/2021 20:29 EST [facility] Swab 11/07/2021 8:30 EST 11/07/2021 15:48 EST Provider Outr Resulting Lab MICROBIOLOGY - GENERAL ORDERABLES [facility] [address] [place] [address] documented in this encounter Visit Diagnoses Not on filedocumented in this encounter Care Teams Command And Control Specialist Relationship Specialty Start Date End Date Unknown, Provider, PCP - General 02/20/16 06/24/24 Gopal Maldonado, [facility] [place] [address] PCP - General Family Medicine - Primary Care 06/25/24 documented as of this encounter
--- OUTSIDE RECORDS SUMMARY | 2024-06-29 17:22 | XMS_ITS | Encounter Summary ---
Author Organization [facility] Address [address] [place] [address] Care Team Providers Care Nerve Specialist Name Role Phone Unknown, Provider Primary Care Provider [phone] Gopal Maldonado DNP Primary Care Provider [phone] Encounter Details Date Type Department Care Team (Late st Contact Info) Description 04/20/2022 Lab Requisition [facility] Pathology & Laboratory Medicine - [address] [address] Outr Resulting Lab, Provider Social History Tobacco [...] Procedure Name Priority Date/Time Associated Diagnosis Comments HIV 1/2 ANTIGEN AND ANTIBODY, 4TH GENERATION Routine 04/20/2022 10:55 EDT documented in this encounter Results * HIV 1/2 ANTIGEN AND ANTIBODY, 4TH GENERATION (04/20/2022 10:55 EDT) HIV 1 and 2 Antibody/p24 Antigen, 4th Generation Negative Negative 04/23/2022 9:57 EDT [facility] Comment:If acute HIV-1 infec tion is suspected in a high risk patient, submit plasma specimen for HIV-1 RNA quantitation test. Blood VENOUS BLOOD / Unknown 04/20/2022 10:55 EDT 04/20/2022 21:41 EDT Narrative [facility] - 04/23/2022 9:57 EDT Fourth Generation assay performed on the Siemens Centaur XPT. Provider Outr Resulting Lab IMMUNOLOGY A [place] SEROLOGY ORDERABLES [facility] [address] [place] [address] documented in this encounter Visit Diagnoses Not on filedocumented in this encounter Care Teams Nerve Specialist Relationship Specialty Start Date End Date Unknown, Provider, PCP - General 02/20/16 06/24/24 Gopal Maldonado, [facility] [address] [place] [address] [place] [address] PCP - General Family Medicine - Primary Care 06/25/24 documented as of this encounter
--- OUTSIDE RECORDS SUMMARY | 2024-06-29 17:22 | XMS_ITS | Encounter Summary ---
Author Organization [facility] Address [address] [place] [address] Care Team Providers Care Philosophy And Religion Instructor Name Role Phone Unknown, Provider Primary Care Provider [phone] Gopal Maldonado DNP Primary Care Provider [phone] Encounter Details Date Type Department Care Team (Late st Contact Info) Description 10/11/[address] [facility] Pathology & Laboratory Medicine - [address] [address] Outr Resulting Lab, Provider Social History Tobacco [...] Comments ZZCOVID-19 TEST [facility] PCR Today 10/11/2021 10:25 EST COVID-19 TESTING Routine 10/11/2021 10:2 5 EST documented in this encounter Results * COVID-19 TEST [facility] PCR (10/11/2021 10:25 EST) Swab 10/11/2021 10:2 5 EST 10/11/2021 21:13 EST Provider Outr Resulting Lab MICROBIOLOGY - GENERAL ORDERABLES [facility] [address] [place] [address] * COVID-19 TESTING (10/11/2021 10:25 EST) COVID-19 rt-PCR Result Negative Negative 10/12/2021 3:20 EST [facility] Comment: This test has not [...] history, and epidemiological information. Performed on the [employer] Fusion instrument Performing Lab [place] [facility] 10/12/2021 3:20 EST [facility] Swab 10/11/2021 10:2 5 EST 10/11/2021 21:13 EST Provider Outr Resulting Lab MICROBIOLOGY - GENERAL ORDERABLES [facility] [address] [place] [address] documented in this encounter Visit Diagnoses Not on filedocumented in this encounter Care Teams Philosophy And Religion Instructor Relationship Specialty Start Date End Date Unknown, Provider, PCP - General 02/20/16 06/24/24 Gopal Maldonado, [facility] [place] [address] PCP - General Family Medicine - Primary Care 06/25/24 documented as of this encounter
--- OUTSIDE RECORDS SUMMARY | 2024-06-29 17:22 | XMS_ITS | Encounter Summary ---
Author Organization [facility] Address [address] [place] [address] Care Team Providers Care Hand Launderer Name Role Phone Unknown, Provider Primary Care Provider [phone] Gopal Maldonado DNP Primary Care Provider [phone] Encounter Details Date Type Department Care Team (Late st Contact Info) Description 11/02/2021 Lab Requisition [facility] Pathology & Laboratory Medicine - [address] [address] Outr Resulting Lab, Provider Social History Tobacco [...] Comments ZZCOVID-19 TEST [facility] PCR Today 11/02/2021 11:45 EST COVID-19 TESTING Routine 11/02/2021 11:4 5 EST documented in this encounter Results * COVID-19 TEST [facility] PCR (11/02/2021 11:45 EST) Swab 11/02/2021 11:4 5 EST 11/02/2021 17:51 EST Provider Outr Resulting Lab MICROBIOLOGY - GENERAL ORDERABLES [facility] [address] [place] [address] * COVID-19 TESTING (11/02/2021 11:45 EST) COVID-19 rt-PCR Result Negative Negative 11/02/2021 23:02 EST [facility] Comment: This test has not [...] history, and epidemiological information. Performed on the [employer] Fusion instrument Performing Lab [place] [facility] Lab 11/02/2021 23:02 EST [facility] Swab 11/02/2021 11:4 5 EST 11/02/2021 17:51 EST Provider Outr Resulting Lab MICROBIOLOGY - GENERAL ORDERABLES [facility] [address] [place] [address] documented in this encounter Visit Diagnoses Not on filedocumented in this encounter Care Teams Hand Launderer Relationship Specialty Start Date End Date Unknown, Provider, PCP - General 02/20/16 06/24/24 Gopal Maldonado, [facility] [place] [address] PCP - General Family Medicine - Primary Care 06/25/24 documented as of this encounter
--- OUTSIDE RECORDS SUMMARY | 2024-06-29 17:22 | XMS_ITS | Encounter Summary ---
Author Organization [facility] Address [address] [place] [address] Care Team Providers Care Needle Process Felt Goods Supervisor Name Role Phone Unknown, Provider Primary Care Provider [phone] Gopal Maldonado DNP Primary Care Provider [phone] Encounter Details Date Type Department Care Team (Late st Contact Info) Description 09/27/2021 Lab Requisition [facility] Pathology & Laboratory Medicine - [address] [address] Outr Resulting Lab, Provider Social History Tobacco [...] Comments ZZCOVID-19 TEST [facility] PCR Today 09/26/2021 13:05 EST COVID-19 TESTING Routine 09/26/2021 13:0 5 EST documented in this encounter Results * COVID-19 TEST [facility] PCR (09/26/2021 13:05 EST) Swab 09/26/2021 13:0 5 EST 09/27/2021 16:24 EST Provider Outr Resulting Lab MICROBIOLOGY - GENERAL ORDERABLES [facility] [address] [place] [address] * COVID-19 TESTING (09/26/2021 13:05 EST) COVID-19 rt-PCR Result Negative Negative 09/28/2021 13:01 EST [facility] Comment: This test has not [...] clinical observations, patient history, and epidemiological information. This test was developed and its performance characteristics determined by [facility]. It has not been cleared or approved by the US Food and Drug Administration. FDA does not require this test to go through premarket FDA review. This test is used for clinical purposes. It should not be regarded as investigational or for research. This laboratory is certified under the Clinical Laboratory Improvement Amendments (CLIA) as qualified to perform high complexity clinical laboratory testing. This test is based on the [facility] COVID-19 Emergency Use Authorization (EUA) assay, with minor modification as defined by the FDA Performed on the [employer] 7 Flex RT-PCR System. Performing Lab [facility] Lab 09/28/2021 13:01 EST [facility] Swab 09/26/2021 13:0 5 EST 09/27/2021 16:24 EST Provider Outr Resulting Lab MICROBIOLOGY - GENERAL ORDERABLES [facility] [address] [place] [address] documented in this encounter Visit Diagnoses Not on filedocumented in this encounter Care Teams Needle Process Felt Goods Supervisor Relationship Specialty Start Date End Date Unknown, Provider, PCP - General 02/20/16 06/24/24 Gopal Maldonado, [facility] [place] [address] PCP - General Family Medicine - Primary Care 06/25/24 documented as of this encounter
--- OUTSIDE RECORDS SUMMARY | 2024-06-29 17:22 | XMS_ITS | Encounter Summary ---
Author Organization [facility] Address [address] [place] [address] Care Team Providers Care Clinical Rehab Specialist Name Role Phone Unknown, Provider Primary Care Provider [phone] Gopal Maldonado DNP Primary Care Provider [phone] Encounter Details Date Type Department Care Team (Late st Contact Info) Description 09/01/2021 Lab Requisition [facility] Pathology & Laboratory Medicine - [address] [address] Outr Resulting Lab, Provider Social History Tobacco [...] Comments ZZCOVID-19 TEST [facility] PCR Today 09/01/2021 8:55 EST COVID-19 TESTING Routine 09/01/2021 8:55 EST documented in this encounter Results * COVID-19 TEST [facility] PCR (09/01/2021 8:55 EST) Swab 09/01/2021 8:55 EST 09/01/2021 20:11 EST Provider Outr Resulting Lab MICROBIOLOGY - GENERAL ORDERABLES [facility] [address] [place] [address] * COVID-19 TESTING (09/01/2021 8:55 EST) COVID-19 rt-PCR Result Negative Negative 09/01/2021 23:[address] [facility] Comment: This test has not [...] history, and epidemiological information. Performed on the [employer] Fusion instrument Performing Lab [place] [facility] Lab 09/01/2021 23:[address] [facility] Swab 09/01/2021 8:55 EST 09/01/2021 20:11 EST Provider Outr Resulting Lab MICROBIOLOGY - GENERAL ORDERABLES [facility] [address] [place] [address] documented in this encounter Visit Diagnoses Not on filedocumented in this encounter Care Teams Clinical Rehab Specialist Relationship Specialty Start Date End Date Unknown, Provider, PCP - General 02/20/16 06/24/24 Gopal Maldonado, [facility] [place] [address] PCP - General Family Medicine - Primary Care 06/25/24 documented as of this encounter
--- OUTSIDE RECORDS SUMMARY | 2024-06-29 17:22 | XMS_ITS | Encounter Summary ---
Author Organization [facility] Address [address] [place] [address] Care Team Providers Care Military Exchange Wireless Manager Name Role Phone Unknown, Provider Primary Care Provider [phone] Encounter Details Date Type Department Care Team ([facility] st Contact Info) Description 03/02/2019 Results Only [facility]- [facility] [phone] Zion Garcia MD [address] [place] [id number] Social History Tobacco Use Types Packs/Day Years [...] Diagnosis Comments PAP TEST- RESULT ONLY Routine 03/02/2019 0:00 EDT documented in this encounter Results * PAP TEST- RESULT ONLY (03/02/2019 0:00 EDT) Pathology Report: CYTOPATHOLOGY REPORT Reports generated via electronic interface contain original data; however they are lacking the format of the original report. Caution should be taken when reading/interpreti ng unformatted reports. Name: ? GONZALES CARCAMO ? Accession #: ? [id number] ? : ? 1985 (Age: 34) ??F ?Collect Date: ? 03/02/2019 ? Location: ? [facility] ? Receive Date: ? 03/02/2019 ? Provider: ZION GARCIA MD Copy to: NORMAN MORENO CONSTRUCTION SAFETY MANAGER-BC ? Final Report SPECIMEN ADEQUACY ? Satisfactory for Evaluation - transformation zone component present GENERAL CATEGORIZATION ? Negative for Intraepithelial Lesion or Malignancy ?? Last Menstrual Period: 02/24/19 Previous Gynecologic Pathology: Yes: ABNORMAL Specimen/Source: ??Pap Test, Cervix, ThinPrep Imaging System with manual evaluation Document reviewed and electronically signed by: ? Renuka Sorensen, CT(ASCP) ? Report ??Date: 03/05/2019 14:30 HPV with Pap Test ? Date Ordered: ? 03/05/2019 ? Status: ?? Signed Out ?Date Complete: ? 03/06/2019 ? By: ??System Interface ? Date Reported: ? 03/06/2019 ? Interpretation RESULT: POSITIVE FOR HIGH OR INTERMEDIATE RISK HPV. E6 OR E7 mRNA from one or more types of HPV types 16,18,31, 33,35,39,45,51,52, 56,58,59,66, and 68 is detected by cardiology nurse mediated amplification. High and intermediate risk HPV types are associated with most squamous intraepithelial lesions and cervical cancers. Comments Document reviewed and electronically signed by: ? System Interface ? Report date: 03/06/2019 By the signature above, the attending physician certifies that he/she has personally conducted a gross and/or microscopic examination of the described specimens and rendered or confirmed the above diagnosis. End of Report [facility] 03/02/2019 03/02/2019 Zion Garcia MD PATHOLOGY ORDERABLES [facility] [address] [place] [address] documented in this encounter Visit Diagnoses Not on filedocumented in this encounter Care Teams Military Exchange Wireless Manager Relationship Specialty Start Date End Date Unknown, Provider, PCP - General 02/20/16 06/24/24 documented as of this encounter
--- NOTE | 2024-06-29 17:45 | DI.CT_ITS ---
Exam(s) CT ABDOMEN PELVIS W EXAM: CT ABDOMEN PELVIS W CLINICAL HISTORY: ABD PAIN. TECHNIQUE: Imaging Protocol: Axial computed tomography images with coronal and sagittal reformatted images were created and reviewed CONTRAST MATERIAL: Intravenous: Omnipaque 350 Contrast volume:100 ml Oral: no COMPARISON: CT CT CHEST PE CTA from 08/10/2021 FINDINGS: ABDOMEN and PELVIS: Lung Bases: No acute findings. Liver: Normal density. No suspicious mass. Gallbladder and biliary tract: No radiodense calculus. No abnormal distention or wall thickening. N o biliary dilation. Pancreas: Normal density. No abnormal calcifications or inflammatory process. No evidence of mass. Spleen: Normal. Kidneys: Normal size, contour and axis. No radiodense stones. No obstructive uropathy. No suspicious masses seen. Adrenal glands: No masses seen. Vasculature: Abdominal aorta non-dilated. Soft tissues: Unremarkable. Bladder: No gross wall thickening. No calculi.No focal mass. Bowel: No obstruction. No bowel wall thickening. Appendix normal. Normal quantity of stool. Peritoneal cavity: No ascites. No focal collection. No mesenteric inflammatory response. Bones: Unremarkable for age. Partial sacralization of L5. Reproductive organs: Unremarkable. Lymph nodes: No pathologically enlarged lymph nodes. IMPRESSION:: No acute abnormality in the abdomen or pelvis. RADIATION DOSE DELIVERED: Total DLP DATA REPOSITORY: All CT scans at this facility are submitted to the National Radiology Data Registry (NRDR) Dose Index Registry (DIR) with the [employer] (ACR). RADIATION OPTIMIZATION: All CT scans at this facility use at least one of these dose optimization te chniques: automated exposure control; mA and/or kV adjustment per patient size (includes targeted exa ms where dose is matched to clinical indication); or iterative reconstruction.
[2024-06-29] MEDS: Omnipaque 350 MG/ML 100 ML BTL IJ (18:40)
[2024-06-29] MEDS: Normal Saline 1,000 ML 1000 ML IV (18:40)
[2024-06-29] MEDS: Ketorolac 15 MG/ML VIAL 10 MG IVP (18:40)
[2024-06-29] MEDS: Normal Saline Flush 10 ML SYR IVP (18:41)
[2024-06-29] MEDS: Normal Saline - Diluent 50 ML VIAL IJ (18:41)
[2024-06-29 18:43] LABS: Abs Immature Grans 0.02 10^3/uL (0.0-0.06); Absolute Basophil Count 0.03 10^3/uL (0.0-0.2); Absolute Eosinophil Count 0.14 10^3/uL (0.0-0.7); Absolute Lymphocyte Count 1.95 10^3/uL (1.2-3.4); Absolute Neutrophil Count 2.57 10^3/uL (1.2-6.7); Basophils % 0.6 %; Eosinophils % 2.7 %; HCT 40.8 % (36.0-46.0); HGB 14.1 g/dL (11.2-15.7); Immature Grans % 0.4 %; Lymphocytes % 38.2 %; MCH 31.3 pg (27.0-33.0); MCHC 34.6 % (32.0-36.0); MCV 91 fL (80-95); MPV 9.6 fL (8.0-11.0); Monocytes % 7.8 %; Neutrophils % 50.3 %; Platelet Count 260 10^3/uL (130-400); RDW 11.5 % (11.7-14.6); RDW-SD 38.1 fL; WBC 5.11 10^3/uL (4.4-10.8)
[2024-06-29 18:45] LABS: Bilirubin Negative (Negative); Blood Large (Negative); Clarity Clear (Clear); Glucose Negative (Negative); Ketones Negative (Negative); Leukocyte Esterase Negative (Negative); Nitrite Negative (Negative); Specific Gravity 1.015 (1.005-1.025); Urobilinogen 0.2 mg/dL (Up to 0.2); pH 5.5 (5-8)
--- NOTE | 2024-06-29 18:56 | ED.GENADUL_ITS ---
Discharge Plan Disposition Patient Disposition: Home Condition: Stable Discharge Details Clinical Impression: Abdominal pain Primary Care Provider: Gopal Maldonado ED Provider: Betty Parada Home Meds and New Rx's Prescriptions: No Action multivitamin Tablet 1 tab PO DAILY drospirenone-ethinyl estradiol [BARI (28)] 3-0.02 mg tablet 1 tab PO DAILY Qty: 84 4RF rizatriptan [Maxalt-TRAFFIC ENUMERATOR] 10 mg tablet,disintegrating 10 mg PO ONCE PRN (Reason: migraine headache) Qty: 10 11RF Rx Instructions: may repeat once after at least 2 hours ondansetron 4 mg tablet,disintegrating 4 mg PO Q8H PRN Discharge Instructions Instructions: Abdominal Pain, Adult ED Additional Instructions: you can drink a bottle of magnesium citrate start miralax 1 cap up to 3 times per day until you have regular soft-loose stools and then take 1 cap daily to maintain soft regular stools HPI General Date/Time Provider Initiated Documentation: 06/29/24 17:57 . Limitations to Documentation: no limitations . Information obtained by: patient . HPI Narrative: 39-year-old female without significant past medical history presents for evaluation of left lower quadrant abdominal pain. She reports that the pain has been ongoing for the last 3 days. It is localized to the left lower quadrant, is worse with any movement. Associated with nausea, no vomiting. No fever. No dysuria, hematuria urgency or frequency. She states that it is associated with constipation. She has been taking some medications to help have a bowel movement, but this is not significantly improved. She has tried Dulcolax and a water enema. Related Data Home Medications ?Medication ?Instructions ?Recorded ?Confirmed multivitamin 1 tab PO DAILY 07/01/20 06/29/24 drospirenone 3 mg-ethinyl 1 tab PO DAILY #84 tabs 03/18/24 06/29/24 estradiol 0.02 mg tablet (BARI (28)) ondansetron 4 mg disintegrating 4 mg PO Q8H PRN 06/29/24 06/29/24 tablet rizatriptan 10 mg disintegrating 10 mg PO ONCE PRN migraine 06/29/24 06/29/24 tablet (Maxalt-TRAFFIC ENUMERATOR) headache #10 tabs Previous Rx's ?Medication ?Instructions ?Recorded drospirenone 3 mg-ethinyl 1 tab PO DAILY #84 tabs 03/18/24 estradiol 0.02 mg tablet (BARI (28)) rizatriptan 10 mg disintegrating 10 mg PO ONCE PRN migraine 06/29/24 tablet (Maxalt-TRAFFIC ENUMERATOR) headache #10 tabs Allergies Allergy/AdvReac Type Severity Reaction Status Date / Time amoxicillin (From Augmentin) Allergy Itching Verified 06/29/24 17:19 clavulanic acid (From Allergy Itching Verified 06/29/24 17:19 Augmentin) lactose AdvReac Diarrhea Verified 06/29/24 17:19 ENVIRONMENTAL Allergy Mild sneezing Uncoded 06/29/24 17:19 General Stated Complaint: Abd Prob ROME: 3 Exam Narrative Exam Narrative: Review of Systems: All systems reviewed & are unremarkable except as noted in HPI and below Well-developed, no acute distress RRR, no murmur Unlabored respiratory effort, clear bilaterally Nondistended abdomen mild left lower quadrant tenderness, no guarding or rebound Course Vital Signs Vital signs: Vital Signs Temperature 37.1 C 06/29/24 17:16 Pulse 99 H 06/29/24 17:16 Respiratory Rate 14 06/29/24 17:16 Blood Pressure 139/84 06/29/24 17:16 Pulse Oximetry 98 06/29/24 17:16 Temperature 37.1 C 06/29/24 17:16 Pulse 99 H 06/29/24 17:16 Respiratory Rate 14 06/29/24 17:16 Respiratory Effort Normal 06/29/24 17:21 Blood Pressure 139/84 06/29/24 17:16 Pulse Oximetry 98 06/29/24 17:16 Oxygen Delivery Method Room Air 06/29/24 17:16 Oxygen Flow Rate 0 06/29/24 17:16 Pain Level 4 06/29/24 17:16 Comment at its worse 05/2306/29/24 17:16 Lab/Test Results Lab/Test Results: Laboratory Tests Range/Units 06/29/24 06/29/24 18:29 18:35 WBC (4.4-10.8) 10^3/uL 5.11 RBC (3.93-5.22) 10^6/uL 4.50 Hgb (11.2-15.7) g/dL 14.1 Hct (36.0-46.0) % 40.8 MCV (80-95) fL 91 MCH (27.0-33.0) pg 31.3 MCHC (32.0-36.0) % 34.6 RDW (11.7-14.6) % 11.5 L Plt Count (130-400) 10^3/uL 260 MPV (8.0-11.0) fL 9.6 Immature Gran % % 0.4 Neutrophils % % 50.3 Lymphocytes % % 38.2 Monocytes % % 7.8 Eosinophils % % 2.7 Basophils % % 0.6 Nucleated RBC % (0.0-0.3) % 0.0 Absolute Neutrophils (1.2-6.7) 10^3/uL 2.57 Absolute Lymphocytes (1.2-3.4) 10^3/uL 1.95 Absolute Monocytes (0.1-0.8) 10^3/uL 0.40 Absolute Eosinophils (0.0-0.7) 10^3/uL 0.14 Absolute Basophils (0.0-0.2) 10^3/uL 0.03 Urine Color (Yellow) Yellow Urine Clarity (Clear) Clear Urine pH (5-8) 5.5 Ur Specific Holt (1.005-1.025) 1.015 Urine Protein (Neg-Trace) mg/dL Negative Urine Ketones (Negative) mg/dL Negative Urine Blood (Negative) Large H Urine Nitrite (Negative) Negative Urine Bilirubin (Negative) Negative Urine Urobilinogen (Up to 0.2) mg/dL 0.2 Ur Leukocyte Esterase (Negative) Negative Urine Glucose (Negative) mg/dL Negative POC- Test(urine) Negative Medical Decision Making Emergent evaluation of left lower quadrant abdominal pain. Initial differential includes constipation, diverticulitis, you UTI, less likely renal colic. The patient does have mild left lower quadrant tenderness on examination. Given her reported history of constipation, will get CT imaging, give labs, fluid resuscitation and medications for pain relief Lab work reviewed. There is no leukocytosis. Hemoglobin is 14, so no concerns for anemia. She has some mild hypokalemia at 3.3 and recommend dietary change. There is normal renal function and no derangement in her LFTs. Urinalysis does not reveal any signs of infection, there is some blood in her urine. A CT scan was obtained and I did review the radiology report. There does not appear to be an acute abnormality. There was no stone noted to cooperate a possible source renal colic causing her pain. No obstruction or infectious etiology appreciated. Patient appears comfortable. She is complaining of difficulty with bowel movements, so she was provided an oral regimen to take at home improved that. She is discharged in good condition I recommend close follow-up with PCP as needed for ongoing symptoms. Quality:SDOH Health Related Social Needs: No Data to Display PFSH All Active Problems (Updated 06/29/24 @ 19:40 by Betty Parada MD) Abdominal pain (Acute) Medial epicondylitis, right elbow (Acute) Oral contraception initial prescription (Acute) Encounter for IUD removal (Acute) Rectal pain (Acute) Anxiety and depression (Acute 05/01/17) Increased BMI (body mass index) (Acute 01/17/17) Chondromalacia patellae, right knee (Acute) Deep vein thrombosis (DVT) of right upper extremity (Acute) 07/2021, dx with US large thrombus, assoc with Covid, on eliquis-plan 3 month course 03/2022-patient completed Eliquis without sequelae COVID-19 (Acute) 06/2021, breakthrough infection, likley associated with arm thrombus IUD surveillance (Acute) Menstruation, irregular (Acute) Migraine, menstrual (Acute) IUD (intrauterine device) in place (Acute) Changing nevus (Acute) Medical History Internal derangement of right knee (08/12/19) Contraception management Mirena IUD after of her children. 2017 Mirena IUD removed after 3yrs - needed hysteroscopy in OR to retrieve device. 02/2018 OCPs. Surgical History lymph node removal (10/14/07) from neck section X 2 Hysteroscopy (11/07/17) retrieval of Mirena IUD. Family History Mother Lupus Rheumatoid arthritis Diabetes Essential hypertension Depression Heart disease Hyperlipidemia Cancer Breast Father Essential hypertension Heart disease Hyperlipidemia Sister No problems noted. Maternal Grandfather No problems noted. Paternal Grandfather Alzheimer disease Smoker Maternal Grandmother Stroke Paternal Grandmother Essential hypertension Heart disease Hyperlipidemia Daughter No problems noted. Daughter No problems noted. Social History Smoking/Tobacco Use Status: Never Second Hand Exposure: No Smoking risk assessment performed?: Yes Alcohol Intake: former Drug use: Never Substance use type: does not use Caregiver/Support person: No Household members: children Housing: house Communication Needs: None Do you need help understanding health information?: Never Pets and animals: Yes Pets and animals: dog(s) Do you think of yourself as: straight/heterosexual Current gender identity: female What is your relationship status?: How often do you talk on the phone with friends or family?: three or more times per week How often do you get together with friends or relatives?: once per week How often do you attend islam or sikhism services?: decline to answer Do you belong to any clubs or organized social groups?: no Panel score (0-1 are the most socially isolated patients): 1 What type of physical activity do you participate in: walking Duration: 45-60 minutes/day Frequency: 3-4 times per week Lesley/Jehovah'S Witness: No preference Special lesley needs: No Seatbelt use: always Helmet use: Yes Helmet use: always Drive intox or ride w/intox miniature train driver: No Do you feel safe at home: Yes Do you feel safe in your relationship?: Yes History History Para Hx # Term Pregnancies 2 Multiple births Hx # Pregnancies Ectopic pregnancies AB induced Hx Number of Living Children AB spontaneous
[2024-06-29 19:04] LABS: ALT 23 U/L (14-59); AST 18 U/L (15-37); Albumin 3.8 g/dL (3.4-5.0); Alkaline Phosphatase 41 U/L (46-116); Anion Gap 8.2 mmol/L (3-11); BUN 14 mg/dL (7-18); Bilirubin, Total 0.32 mg/dL (0.2-1.0); CO2 25.8 mmol/L (21.0-32.0); CREATININE 0.9 mg/dL (0.55-1.02); Chloride 104 mmol/L (98-107); Estimated GFR 84.44 (mL/min/1.73m2); Glucose 104 mg/dL (74-106); Potassium 3.3 mmol/L (3.5-5.1); Sodium 138 mmol/L (136-145); Total Protein 7.3 g/dL (6.4-8.2)
[2024-06-29 19:16] LABS: Bacteria Negative HPF (Negative); C & S Indicated? No; Casts Negative LPF (Negative); Crystals Negative HPF (Negative); Epithelial Cells Moderate HPF (Negative); Mucus Negative (Negative); WBC Negative HPF (0-5)
[2024-06-29 19:46] VITALS: BP 113/62; PULSE 78; RESP 16; O2SAT 98
== END 2024-06-29 19:46 | disposition home or self-care (01) ==
PROVIDERS: Emergency Provider Emergency Medicine; PCP Nurse Practitioner Family
DX: R10.32 Left lower quadrant pain (principal)
CPT/HCPCS: 36415; 80053; 81025; 96361; 96374; 96375; 99285; 74177; 81003; 81015; 85025; 99283; J1885; J3490

== ENCOUNTER 2025-05-17 01:22 | Outpatient (CLI) | payer OTHER, SELFPAY ==
[2025-05-17] MEDS: Gadoterate meglumine 20 ML SYRINGE IVP (15:23)
--- NOTE | 2025-05-17 15:45 | DI.MRI_ITS ---
Exam(s) MR CHEST WO/W EXAM: MR CHEST WO/W CLINICAL HISTORY: RT SHOULDER PAIN,thoracic outlet syndrome,paresthesia rt upper ext TECHNIQUE: Multiplanar multisequence MRI of the Chest was performed. CONTRAST MATERIAL: IV Contrast: 19 ML of Dotarem contrast administered. COMPARISON: There are no plain films of the cervical spine available at the time of this MRI interpretation. FINDINGS: NERVES: Unremarkable visualized nerves and brachial plexus components. No obvious focal findings. Annular bulging noted at C5-6 and C6-7 levels. However, no prominent disc herniation nor central spinal canal stenosis SOFT TISSUES: No obvious focal findings. No Pancoast-type apical lung mass. OSSEOUS/ARTICULATIONS: No significant osseous lesions. No prominent cervical ribs evident. There appears to be some possible abnormal signal in the right shoulder rotator cuff supraspinatus tendon, possibly significant VASCULATURE: No obvious abnormalities. IMPRESSION: No obvious abnormalities in the right brachial plexus Incidentally noted in the peripheral aspect of the field of view is some signal abnormality in what appears to be the supraspinatus component of the right shoulder rotator cuff. Correlation with clinical finding recommended to determine if dedicated shoulder MRI would be recommended. DATA REPOSITORY:
--- NOTE | 2025-05-17 16:25 | DI.VRAD_ITS ---
PROCEDURE INFORMATION: Exam: MR Chest Without and With Contrast; Brachial Plexus Exam date and time: 05/17/2025 2:38 PM Age: 40 years old Clinical indication: Other: RT shoulder pain, thoracic outlet syndrome, paresthesia RT upper ext TECHNIQUE: Imaging protocol: MR chest without and with intravenous contrast. Exam focused on the brachial plexus. Contrast material: DOTAREM; Contrast volume: 19 ml; Contrast route: INTRAVENOUS (IV); COMPARISON: CT CHEST PE CTA 08/10/2021 4:31 PM FINDINGS: Nerves: Unremarkable visualized nerves and brachial plexus. Soft tissues: Unremarkable Bones/joints: Unremarkable. No significant degenerative changes seen in the cervical spine. Normal cord signal and caliber. Lymph nodes: No significant lymphadenopathy Vasculature: The internal jugular, subclavian, brachiocephalic veins and arteries and superior vena cava are normal. IMPRESSION: Unremarkable exam. Dictated and Authenticated by: Kyleigh Saldana MD. Orderin Jerald Vail MD
== END 2025-05-17 01:42 ==
LOC: DI 01:23
PROVIDERS: PCP Nurse Practitioner Family; Visit Provider Student in an Organized Health Care Education/Training Program
DX: G54.0 Brachial plexus disorders (principal); R20.2 Paresthesia of skin
CPT/HCPCS: 71552

== ENCOUNTER 2025-07-27 02:20 | Outpatient (CLI) | payer OTHER, SELFPAY ==
--- NOTE | 2025-07-27 07:15 | DI.MRI_ITS ---
Exam(s) MR CERVICAL SPINE WO EXAM: MR CERVICAL SPINE WO CLINICAL HISTORY: right shoulder pain, PARESTHESIA OF R UPPER EXT, THORACIC OUTLET, R20.2 TECHNIQUE: Multiplanar multisequence MRI of the cervical spine was performed without intravenous contrast. COMPARISON: MR MR ANGIO BRAIN W from 08/18/[address] FACIAL WO from 01/25/2024 FINDINGS: BONES: Vertebral body heights are maintained. There are mild diffuse disc bulges at several levels of the cervical spine. Alignment is normal. Bone marrow signal intensity is within normal limits. CERVICAL CORD: Craniovertebral junction is unremarkable. The cervical cord is normal size and signal intensity. SOFT TISSUES: Unremarkable. C2-3: No disc herniation or bulge is identified. No significant central spinal canal or neural foraminal stenosis. C3-4: There is mild prominence of the disc at this level but no focal disc herniation is seen. There is mild narrowing of the right neural foramen at this level. There is no significant central spinal canal or left neural foraminal stenosis. C4-5: There is mild prominence of the disc at this level with mild extension into the neural foramen bilaterally but no focal disc herniation is seen. There is no significant central spinal canal stenosis. There is very mild narrowing of the neural foramen bilaterally. C5-6: There is mild prominence of the disc at this level but no focal disc herniation is present. There is no significant central spinal canal or right neural foraminal narrowing. There is mild left neural foraminal narrowing. C6-7: There is mild prominence of the disc at this level but no focal disc herniation is seen. No significant central spinal canal or neural foraminal stenosis C7-T1: No disc herniation or bulge is identified. No significant central spinal canal or neural foraminal stenosis IMPRESSION: 1. Multilevel discal prominence with neural foraminal narrowing as described above. 2. There is no significant central spinal canal stenosis. 3. There is normal signal in the spinal cord. DATA REPOSITORY:
--- NOTE | 2025-07-27 07:15 | DI.MRI_ITS ---
Exam(s) MR UPPER JOINT RT WO EXAM: MR UPPER JOINT RT WO CLINICAL HISTORY: pain, THORACIC OUTLET SYN,R ARM PAIN,BRACHAIL PLEX DIS. G54.0,M79.601,R20.2. TECHNIQUE: Multiplanar multisequence MRI was performed. COMPARISON: MR MR CHEST WO/W from 05/17/2025 FINDINGS: BONES: There is no fracture or contusion pattern. JOINTS: There are very mild degenerative changes seen at the acromioclavicular joint. The glenohumeral joint is normal. There is no significant joint effusion. TENDONS: Supraspinatus: There is hyperintense signal seen in the anterior aspect of the supraspinatus tendon at its insertion site consistent with a small partial tear. Infraspinatus: Unremarkable. Subscapularis: Unremarkable. Teres Minor: Unremarkable. Biceps and Pierce: Unremarkable. MUSCLES: Unremarkable. GLENOID LABRUM: Unremarkable on this noncontrast examination. SOFT TISSUES: Unremarkable. LIGAMENTS: Unremarkable. OTHER: There is a small amount of fluid seen in the subacromial subdeltoid bursa. IMPRESSION: 1. Small partial tear in the supraspinatus tendon. 2. Mild degenerative changes seen at the acromioclavicular joint. 3. Small amount of fluid seen in the subacromial subdeltoid bursa. DATA REPOSITORY:
== END 2025-07-27 02:40 ==
LOC: DI 02:20
PROVIDERS: PCP Nurse Practitioner Family; Visit Provider Student in an Organized Health Care Education/Training Program
DX: R20.2 Paresthesia of skin (principal); G54.0 Brachial plexus disorders; M79.601 Pain in right arm; M75.121 Complete rotator cuff tear or rupture of right shoulder, not specified as traumatic; M48.02 Spinal stenosis, cervical region
CPT/HCPCS: 72141; 73221

== ENCOUNTER 2025-08-25 15:30 | Outpatient (CLI) | payer OTHER, SELFPAY ==
--- NOTE | 2025-08-25 15:00 | DI.RAD_ITS ---
Exam(s) XR SHOULDER RT COMPLETE 2+V EXAM: XR SHOULDER RT COMPLETE 2+V CLINICAL HISTORY: RIGHT SHOULDER PAIN. TECHNIQUE: 2D digital imaging was performed. COMPARISON: No exams were available for comparison FINDINGS: Two views No evidence of fracture or dislocation nor abnormal soft tissue calcifications. Subacromial space is not diminished. There are no degenerative changes in the glenohumeral joint and no obvious degenerative changes in the AC joint. Bone density normal. No osseous lesions IMPRESSION: No acute osseous findings in the right shoulder. DATA REPOSITORY: RADIATION DOSE DELIVERED:
== END 2025-08-25 15:31 | disposition home or self-care (01) ==
LOC: DIORS 08-26 14:47
PROVIDERS: PCP Nurse Practitioner Family; Visit Provider Student in an Organized Health Care Education/Training Program
DX: M79.601 Pain in right arm (principal)
CPT/HCPCS: 73030

== ENCOUNTER 2025-10-04 08:05 | Day surgery (SDC) | payer OTHER, SELFPAY ==
[2025-10-04 08:26] VITALS: BP 120/76; PULSE 101; RESP 22; TEMP 36.3; O2SAT 98
[2025-10-04] MEDS: Na Phosphate Enema-Adult 133 ML BTL PR (08:35)
[2025-10-04] MEDS: Lactated Ringers 1,000 ML 80 ML IV (08:56)
--- NOTE | 2025-10-04 09:10 | W.ANESPRE ---
General Info Date of Service Date Performed: 10/04/25 Height: 5 ft 8 in Weight: 97.6 kg Body Mass Index (BMI): 32.7 Surgical Procedure: Operation Date: 10/04/25 09:20 Proposed Procedure Side Surgeon danni Frazier MD Meds Allergies and Home Medications Allergies Allergy/AdvReac Type Severity Reaction Status Date / Time adhesive tape Allergy Mild Unknown Verified 10/04/25 08:30 amoxicillin (From Augmentin) Allergy Itching Verified 10/04/25 08:30 clavulanic acid (From Allergy Itching Verified 10/04/25 08:30 Augmentin) lactose AdvReac Diarrhea Verified 10/04/25 08:30 ENVIRONMENTAL Allergy Mild sneezing Uncoded 10/04/25 08:30 Home Medication ?Medication ?Instructions ?Recorded multivitamin 1 tab PO DAILY 07/01/20 rizatriptan 10 mg disintegrating 10 mg PO ONCE PRN migraine 07/24/25 tablet (Maxalt-[facility] PT) headache #10 tabs bupropion HCl 100 mg tablet 100 mg PO ONCE #90 tabs 09/18/25 Current Visit Medications: Current Medications Generic Name Dose Route Start Last Admin Trade Name Freq PRN Reason Stop Dose Admin Ringer's Solution 1,000 mls @ 80 mls/hr 10/04/25 06:00 10/04/25 08:56 IV 10/31/25 23:59 80 mls/hr INFUSION BARRIE Administration Sodium Biphosphate/Sodium Phosphate 133 ml 10/04/25 06:00 10/04/25 08:35 Na Phosphate Enema-Adult 133 Ml Btl ND 10/31/25 23:59 1 btl DIRECTED PRN Administration Sodium Chloride 0 ml 10/04/25 06:00 Normal Saline Flush 10 Ml Syr IV 10/31/25 23:59 PRN PRN Sodium Chloride 0 ml 10/04/25 06:00 Normal Saline 10 Ml Vial IJ 10/31/25 23:59 DIRECTED PRN Sterile Water 0 ml 10/04/25 06:00 Water,Injection,Sterile 10 Ml Vial IJ 10/31/25 23:59 DIRECTED PRN PFSH Active Problems Active Problems: Problem Status Onset Code Polyarthralgia Acute M25.50 Right rotator cuff tear Acute M75.101 Hematochezia Acute K92.1 Right arm pain Acute M79.601 Thoracic outlet syndrome Acute G54.0 Paresthesia of right upper extremity Acute R20.2 Medial epicondylitis, right elbow Acute M77.01 Oral contraception initial prescription Acute Z30.011 Encounter for IUD removal Acute Z30.432 Rectal pain Acute K62.89 Anxiety and depression Acute 05/01/17 F41.9, F32.9 Increased BMI (body mass index) Acute 01/17/17 R63.8 Chondromalacia patellae, right knee Acute M22.41 Deep vein thrombosis (DVT) of right upper extremity Acute I82.621 COVID-19 Acute U07.1 IUD surveillance Acute Z30.431 Menstruation, irregular Acute N92.6 Migraine, menstrual Acute G43.829 IUD (intrauterine device) in place Acute Z97.5 Changing nevus Acute D22.9 Medical History Medical History Internal derangement of right knee (08/12/19) Contraception management Mirena IUD after of her children. 2018 Mirena IUD removed after 3yrs - needed hysteroscopy in OR to retrieve device. 02/2018 OCPs. Surgical History Surgical History lymph node removal (10/14/07) from neck section X 2 Hysteroscopy (11/07/17) retrieval of Mirena IUD. Tobacco Smoking/Tobacco Use Status: Never Passive smoking exposure: No Second hand exposure: No Alcohol Alcohol Intake: former Substance Use Substance use: Never Substance use type: does not use Prental History History Para Hx # Term Pregnancies 2 Multiple births Hx # Pregnancies Ectopic pregnancies AB induced Hx Number of Living Children AB spontaneous Vital Signs and Lab Results Vital Signs Most Recent Vital Signs in EMR: Most Recent Vital Signs Temp Pulse Resp BP Pulse Ox 36.3 C L 101 H 22 120/76 98 10/04/25 08:26 10/04/25 08:26 10/04/25 08:26 10/04/25 08:26 10/04/25 08:26 Point of Care Results Point of Care Results: POC- Test(urine) Negative 10/04/25 08:34 Imaging and Studies Imaging and Studies Study information below may be from another EMR and interpreted by another provider. Please see original notes in EMR for more complete details. EKG Summary: 08/10/21 Conclusion Sinus tachycardia...rate> 99 Ventricular premature complex...V complex w/ short R-R interval Anesthesia Assessment and Plan Anesthesia History Personal History: No History of Anesthesia Complications Family History: No Family History of Anesthesia Complications Exercise Tolerance Exercise Tolerance: Metabolic Equivalents>4 Pertinent Negatives Pertinent Negatives: No Symptoms of GERD, No Major Cardiovascular Symptoms or Complaints, No Major Pulmonary Symptoms or Complaints and No History of CVA/TIA Cardiac & Pulmonary Exam Cardiac Exam: Normal S1/S2 Heart Sounds Pulmonary Exam: Clear Bilateral Breath Sounds Implantable Cardiac Device Does patient have a Pacemaker or an ICD?: No Airway Exam Known Difficult Airway: No Mallampati Class: 2 Mouth Opening: Normal (> 3cm) Thyromental Distance: Greater than 3 cm Neck Range of Motion: Full ROM Neck Circumference: Normal Teeth Condition: Normal Dentition ASA Classification ASA Score: ASA 2 Emergency Case?: No NPO Status NPO Status: NPO Clears >2 hours, Solids >8 hours Status Status: Negative HCG Anesthesia Plan Resuscitation Status: Full Code Anesthesia Technique: General Anesthesia Airway Planned: Natural Airway Monitors Used: Standard Monitors
--- NOTE | 2025-10-04 09:39 | W.PM.HP.N ---
Date of service: 10/04/25 Time of Service: 09:39 Assessment and Plan Assessment and plan (1) Hematochezia: Status: Acute Assessment and plan: proceed w colonoscopy. Discussed colonoscopy procedure risks, benefits, alternatives and expectations. (2) Rectal pain: Status: Acute History of Present Illness History of Present Illness Chief Complaint: colonoscopy Narrative: 40yo F here for colonoscopy for hematochezia. HPI from office visit in june is as follows for reference: 40 y/o female with a history of anxiety, depression, DVT (R UE), migraines and thoracic outlet syndrome returns to again discuss Colonoscopy vs. Sigmoidoscopy following hematochezia which started a few months ago. She was previously seen by Dr. Altman last year for rectal pain, which was thought to be proctalgia fugax. At that visit a discussion around proceeding with a diagnostic scope was discussed however it was decided to hold off. Since that time Gomez reports she continues to have intermittent rectal pain. She started noticing blood clots in the toilet randomly and not related to BMs early this Spring 2024. She has also had bright red blood on the toilet paper after wiping. She states this has happened a few times, however has not recurred in the past few weeks. She describes a chronic history of constipation, which she has trialled several supplements and OTC laxatives with improvement initially however describes that the benefits seem to dwindle after using a product for a period of time. PFSH All Active Problems Polyarthralgia (Acute) Right rotator cuff tear (Acute) Hematochezia (Acute) Right arm pain (Acute) Thoracic outlet syndrome (Acute) Paresthesia of right upper extremity (Acute) Medial epicondylitis, right elbow (Acute) Oral contraception initial prescription (Acute) Encounter for IUD removal (Acute) Rectal pain (Acute) Anxiety and depression (Acute 05/01/17) Increased BMI (body mass index) (Acute 01/17/17) Chondromalacia patellae, right knee (Acute) Deep vein thrombosis (DVT) of right upper extremity (Acute) 07/2021, dx with US large thrombus, assoc with Covid, on eliquis-plan 3 month course 03/2022-patient completed Eliquis without sequelae COVID-19 (Acute) 06/2021, breakthrough infection, likley associated with arm thrombus IUD surveillance (Acute) Menstruation, irregular (Acute) Migraine, menstrual (Acute) IUD (intrauterine device) in place (Acute) Changing nevus (Acute) Medical History Internal derangement of right knee (08/12/19) Contraception management Mirena IUD after of her children. 2018 Mirena IUD removed after 3yrs - needed hysteroscopy in OR to retrieve device. 02/2018 OCPs. Surgical History lymph node removal (10/14/07) from neck section X 2 Hysteroscopy (11/07/17) retrieval of Mirena IUD. Family History Mother Lupus Rheumatoid arthritis Diabetes Essential hypertension Depression Heart disease Hyperlipidemia Cancer Breast Father Essential hypertension Heart disease Hyperlipidemia Sister No problems noted. Maternal Grandfather No problems noted. Paternal Grandfather Alzheimer disease Smoker Maternal Grandmother Stroke Paternal Grandmother Essential hypertension Heart disease Hyperlipidemia Daughter No problems noted. Daughter No problems noted. Social History Smoking/Tobacco Use Status: Never Second Hand Exposure: No Smoking risk assessment performed?: Yes Alcohol Intake: former Drug use: Never Substance use type: does not use Caregiver/Support person: No Household members: children Housing: house Communication Needs: None Do you need help understanding health information?: Never Pets and animals: Yes Pets and animals: dog(s) Do you think of yourself as: straight/heterosexual Current gender identity: female What is your relationship status?: How often do you talk on the phone with friends or family?: three or more times per week How often do you get together with friends or relatives?: once per week How often do you attend rastafarian or jain services?: decline to answer Do you belong to any clubs or organized social groups?: no Panel score (0-1 are the most socially isolated patients): 1 What type of physical activity do you participate in: walking Duration: 45-60 minutes/day Frequency: 3-4 times per week Lesley/Shinto: No preference Special lesley needs: No Seatbelt use: always Helmet use: Yes Helmet use: always Drive intox or ride w/intox line driver: No Do you feel safe at home: Yes Do you feel safe in your relationship?: Yes History History Para Hx # Term Pregnancies 2 Multiple births Hx # Pregnancies Ectopic pregnancies AB induced Hx Number of Living Children AB spontaneous Meds Allergies and Home Medications Allergies Allergy/AdvReac Type Severity Reaction Status Date / Time adhesive tape Allergy Mild Unknown Verified 10/04/25 08:30 amoxicillin (From Augmentin) Allergy Itching Verified 10/04/25 08:30 clavulanic acid (From Allergy Itching Verified 10/04/25 08:30 Augmentin) lactose AdvReac Diarrhea Verified 10/04/25 08:30 ENVIRONMENTAL Allergy Mild sneezing Uncoded 10/04/25 08:30 Home Medications ?Medication ?Instructions ?Recorded ?Confirmed ?Type multivitamin 1 tab PO DAILY 07/01/20 10/04/25 History rizatriptan 10 mg disintegrating 10 mg PO ONCE PRN migraine 07/24/25 10/04/25 Rx tablet (Maxalt-[facility] CL[employer] SHELTER) headache #10 tabs bupropion HCl 100 mg tablet 100 mg PO ONCE #90 tabs 09/18/25 10/04/25 Rx Exam Narrative Exam Narrative: awake, NAD eomi, MMM midline trachea, neck is symmetric PULM: normal resp effort, equal chest rise with respiration, no wheezing audible CARDIAC: normal PMI, no jvd, regular rate, normal perfusion abdomen is nondistended. extremities are without deformity, normal movement of all four extremities speech is clear and coherent mood and affect are congruent, no focal neurological deficits skin without rash Results Last Vital Signs Temp 97.3 F L 10/04/25 08:26 Pulse 101 H 10/04/25 08:26 Resp 22 10/04/25 08:26 BP 120/76 10/04/25 08:26 Pulse Ox 98 10/04/25 08:26 VTE Prohylaxis Risk Level: Low Risk Contraindications: Active bleed/high bleed risk Prophylaxis: Patient ambulatory Time Spent Time spent with Patient: 40-54 minutes Time was spent: preparing to see the patient(eg.review tests), ordering medications,tests, procedures and referring, communicating with other health daycare assistant
[2025-10-04 09:41] VITALS: BMI 32.7
--- NOTE | 2025-10-04 10:18 | COLE_ITS ---
Date of service: 10/04/25 Time of Service: 10:18 Colonoscopy Report Date of procedure: 10/04/25 Pre-op diagnosis general: hematochezia, rectal pain Post-op diagnosis procedure note: same Procedure: Colonoscopy Surgeon: Katharine Frazier Anesthesia Type: General:No Airway Estimated blood loss (mL): 0 Pathology: none sent Complications: None Prep: Miralax/Dulcolax (excellent) Procedure Description: Informed consent was obtained and the patient was taken to the procedure area. The patient was placed in left lateral decubitus position on the procedure table. Timeout was performed. Anesthesia was induced. A lubricated col onoscope was inserted through the anus and passed to the cecum. The cecum was identified by the ileocecal valve and the appendiceal orifice. The scope was then slowly withdrawn and the colonic and rectal mucosa examined. There are no colon or rectal mass lesions, polyps, AVMs. There is no inflammatory change. No diverticulosis was seen. The scope was retroflexed in the anorectal junction examined. Uncomplicated internal hemorrhoids present. Assessment and plan: Hematochezia rectal pain Normal colonoscopy. Next colonoscopy will be due at age 47 for screening. Option to wait 10 years until age 50 to begin screening. No findings to explain pain or bleeding. Follow up with PCP.
[2025-10-04 10:20] VITALS: BP 93/49; PULSE 91; RESP 16; TEMP 36.2; O2SAT 100
--- NOTE | 2025-10-04 10:20 | PDOC.DSDIS_ITS ---
Date of service: 10/04/25 Discharge Plan Disposition Patient Disposition: Home Condition: Stable Discharge Details Attending Provider: Katharine Frazier Primary Care Provider: Gopal Maldonado Home Meds and New Rx's Prescriptions: Continued multivitamin Tablet 1 tab PO DAILY rizatriptan [Maxalt-CH[facility] MANAGEMENT COORDINATOR] 10 mg tablet,disintegrating 10 mg PO ONCE PRN (Reason: migraine headache) Qty: 10 11RF Rx Instructions: may repeat once after at least 2 hours bupropion HCl 100 mg tablet 100 mg PO ONCE Qty: 90 4RF Discharge Instructions Additional Instructions: Normal colon and rectum, no findings today to explain the bleeding or the rectal pain. Next colonoscopy will be due in 10 years, or at age 47 to begin routine screening at the normal screening age. You are allowed to wait ten years to start your screenings if you would like. Stand Alone Forms: Anesthesia Discharge Inst., Colonoscopy Post Instructions, Joes[facility] Montoya ([facility]), Portal Information Discharge Orders Discharge Orders: Discharge Order (Routine); Ordered 10/04/25 Ordered By: Katharine Frazier DS: Diagnosis Discharge Diagnosis (1) Hematochezia: Status: Acute (2) Rectal pain: Status: Acute
[2025-10-04 10:49] VITALS: BP 99/59; PULSE 73; RESP 16; TEMP 36.3; O2SAT 99
--- NOTE | 2025-10-04 10:58 | W.ANESPOSTOP ---
Postoperative Evaluation Date, Time and Location Date Performed: 10/04/25 Time Performed: 10:20 Patient Location: Day Surgery Unit Vital Signs Most Recent Imported Vital Signs: Most Recent Vital Signs Temp Pulse Resp BP Pulse Ox 36.3 C L 73 16 99/59 L 99 10/04/25 10:49 10/04/25 10:49 10/04/25 10:49 10/04/25 10:49 10/04/25 10:49 Pain Score Most Recent Pain Score: Most Recent Pain Score Pain Level 0 10/04/25 10:49 Assessment Mental Status: Awake (Alert & Oriented to Patient Baseline) Airway and Respiratory Function: Patent airway with normal (patient baseline) respiratory exam Cardiovascular Function: Hemodynamically Stable Hydration Status: Adequately Hydrated Nausea & Vomiting: No Nausea or Vomiting Pain: Pt. Denies Any Pain Peripheral Nerve Block: Patient did not receive a nerve block
== END 2025-10-04 10:54 | disposition home or self-care (01) ==
PROVIDERS: PCP Nurse Practitioner Family; Visit Provider Surgery
PROC: 0DJD8ZZ Inspection of Lower Intestinal Tract, Via Natural or Artificial Opening Endoscopic (ICD-10-PCS; CPT 45378; principal; 2025-10-04 09:15)
DX: K92.1 Melena (principal); K62.89 Other specified diseases of anus and rectum
CPT/HCPCS: 45378; 81025; J2003; J2405; J2704